=== PATIENT | female | born 1935 | race Caucasian/White ===

== ENCOUNTER → 2016-11-17 08:03 | Day surgery (SDC) | payer MEDICARE ==
[~2016-11-17 08:03] MED LIST: Acetaminophen ADULT LIQ* 650 MG/20.3 ML UDC ONE; Buffered Lidocaine 0.9% SYRIN* 5 ML/SYR SYRINGE INTRADERM ONE; Buffered Lidocaine 0.9% SYRIN* 5 ML/SYR SYRINGE ONE; Cisatracurium* 2 MG/ML MDV 5 ML ONE; Dexamethasone IV* 4 MG/ML 1 ML (4 MG) ONE; EPINEPHrine AMP 1 MG/ML ONE; Famotidine IV* 10 MG/ML 2 ML (20 mg) IV ONE; Famotidine IV* 10 MG/ML 2 ML (20 mg) ONE; Glycopyrrolate IV* 0.2 MG/ML 1 ML VIAL ONE; Lidocaine 2% PF * 5 ML VIAL ONE; Metoclopramide TAB* 10 MG ONE; Metoclopramide TAB* 10 MG PO ONE; Midazolam* 1 MG/ML 5 ML VIAL (5 MG) ONE; Neostigmine Methylsulfate* 2 MG/2 ML SYRINGE ONE; Ondansetron INJ* 2 MG/ML VIAL ONE; Ondansetron ODT TAB* 4 MG PO PRN; Propofol* 10 MG/ML 20 ML BTL IV PUSH ONE; fentaNYL* 50 MCG/ML 2 ML VIAL (100 MCG VIAL) IV PRN; fentaNYL* 50 MCG/ML 2 ML VIAL (100 MCG VIAL) ONE
[2016-11-17 11:47] VITALS: BP 137/64
--- NOTE | 2016-11-17 12:12 | OP ---
OPERATIVE REPORT: DATE OF OPERATION: 11/17/16 DATE OF : 31 SURGEON: Richard Yi M.D. PRE-OP DIAGNOSIS: Dysphonia. POST-OP DIAGNOSIS: Dysphonia. OPERATIVE PROCEDURE: Bilateral vocal fold medialization with Prolaryn. 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 She has had more and more difficulty projecting her voice. DESCRIPTION OF PROCEDURE: Patient was taken to the operating room, general anesthesia was given, th e patient was intubated. Larynx was suspended. Microscope was utilized. Prolaryn injection was ca rried out approximately at the level about anterior one-third to posterior two-thirds lateral to the vocal cord approximately 0.3 to 0.4 mL was used on both sides. Patient was then awakened, extubate d, and sent to recovery room in stable condition. Instrument and sponge count correct. Blood loss m inimal. [id number]/[facility] #: [id number]
== END | disposition home or self-care (01) ==
LOC: OR 08:03
PROVIDERS: ATTEND Otolaryngology
DX: R49.0 Dysphonia (principal); I10 Essential (primary) hypertension; I48.91 Unspecified atrial fibrillation; E03.9 Hypothyroidism, unspecified; Z88.0 Allergy status to penicillin; Z88.6 Allergy status to analgesic agent; Z91.041 Radiographic dye allergy status; Z79.01 Long term (current) use of anticoagulants
CPT/HCPCS: A9270-GY; J0171; J1100; J2250; J2405; J2704; J3010

== ENCOUNTER 2017-07-27 07:49 | Day surgery (SDC) | payer MEDICARE ==
[~2017-07-27 07:49] MED LIST changes: -Acetaminophen ADULT LIQ* 650 MG/20.3 ML UDC ONE; -Buffered Lidocaine 0.9% SYRIN* 5 ML/SYR SYRINGE ONE; -Cisatracurium* 2 MG/ML MDV 5 ML ONE; -Dexamethasone IV* 4 MG/ML 1 ML (4 MG) ONE; -EPINEPHrine AMP 1 MG/ML ONE; -Famotidine IV* 10 MG/ML 2 ML (20 mg) IV ONE; -Famotidine IV* 10 MG/ML 2 ML (20 mg) ONE; -Glycopyrrolate IV* 0.2 MG/ML 1 ML VIAL ONE; -Lidocaine 2% PF * 5 ML VIAL ONE; -Metoclopramide TAB* 10 MG ONE; -Metoclopramide TAB* 10 MG PO ONE; -Midazolam* 1 MG/ML 5 ML VIAL (5 MG) ONE; -Neostigmine Methylsulfate* 2 MG/2 ML SYRINGE ONE; -Ondansetron INJ* 2 MG/ML VIAL ONE; -Ondansetron ODT TAB* 4 MG PO PRN; -Propofol* 10 MG/ML 20 ML BTL IV PUSH ONE; -fentaNYL* 50 MCG/ML 2 ML VIAL (100 MCG VIAL) IV PRN; -fentaNYL* 50 MCG/ML 2 ML VIAL (100 MCG VIAL) ONE
[2017-07-27] MEDS ORDERED: Midazolam* 1 MG/ML 2 ML VIAL (2 MG) ONE (09:54)
[2017-07-27 10:20] VITALS: BP 139/62
--- NOTE | 2017-07-27 10:26 | OP ---
DATE OF OPERATION: 07/27/2017. DATE OF : 1935. SURGEON: Jeet Rasmussen M.D. PREOPERATIVE DIAGNOSIS: Cataract right eye. POSTOPERATIVE DIAGNOSIS: Cataract right eye. OPERATIVE PROCEDURE: Extracapsular cataract extraction with intraocular lens implant right eye. PROCEDURE: The patient was brought to the operating room after being given 1/2% Alcaine with epineph rine drops in the preoperative area. The eye was prepped and draped in the usual sterile fashion. S terile drape and eyelid speculum were placed. Again, topical 1/2% Alcaine with epinephrine was given . A paracentesis incision was made at the 9 o'clock position with the No.75 blade. Clear cornea inc ision 2.2 x 2.2-mm was created at the 12 o'clock position starting at the anterior limbus using the 2 .2-mm keratome. The anterior chamber was irrigated with 0.4 mL of 1% non-preservative intracameral l idocaine and filled with DisCoVisc. A capsulorrhexis was completed using the cystotome and the Utrat a forceps. Hydrodissection was performed with balanced salt solution. The lens nucleus was removed w ith the Phacoemulsification handpiece without incident. Cortex was removed with the irrigation-aspir ation handpiece. The capsular bag was re-inflated using DisCoVisc and an [id number] implant was inser john with the shooter. The irrigation-aspiration handpiece was used to remove all residual DisCoVisc. The eye was refilled with balanced salt solution and the wound checked and found to be watertight. Topical Maxitrol drops were given. [id number]/[facility] #: [id number]
[2017-07-27] MEDS ORDERED: Cyclopentolate 1% OPTH.SOL* 2 ML BTL ONE (12:18)
[2017-07-27] MEDS ORDERED: Ketorolac 0.5% OPHTH (NF) 0.5 % 5 ML BTL ONE (12:18)
[2017-07-27] MEDS ORDERED: Povidone Iodine 5% OPTH* 30 ML BTL ONE (12:18)
[2017-07-27] MEDS ORDERED: acetaZOLAMIDE TAB* 250 MG ONE (12:18)
[2017-07-27] MEDS ORDERED: Neomycin/Polymy/Dex OPTH.SUSP* MAXITROL 0.1% 5 ML ONE (12:18)
[2017-07-27] MEDS ORDERED: Lidocaine 2% EPI 1:200000 MPF*10-20 ML VIAL ONE (12:18)
[2017-07-27] MEDS ORDERED: Lidocaine 1% MPF* 2 ML VIAL ONE (12:18)
[2017-07-27] MEDS ORDERED: Phenylephrine 2.5% OPTH.SOL* 2 ML BTL ONE (12:18)
[2017-07-27] MEDS ORDERED: Proparacaine 0.5% OPHTH.SOL* 15 ML BTL ONE (12:19)
== END 2017-07-27 10:30 | disposition home or self-care (01) ==
LOC: OREAST 07:49
PROVIDERS: ATTEND Specialist
DX: H25.811 Combined forms of age-related cataract, right eye (principal); H35.3131 Nonexudative age-related macular degeneration, bilateral, early dry stage; H26.492 Other secondary cataract, left eye; I48.0 Paroxysmal atrial fibrillation; Z79.01 Long term (current) use of anticoagulants; I10 Essential (primary) hypertension; K21.9 Gastro-esophageal reflux disease without esophagitis
CPT/HCPCS: A9270-GY; J2250; V2632

== ENCOUNTER 2018-05-01 07:30 | Day surgery (SDC) | payer MEDICARE ==
[~2018-05-01 07:30] MED LIST changes: -Buffered Lidocaine 0.9% SYRIN* 5 ML/SYR SYRINGE INTRADERM ONE; +Buffered Lidocaine 1% SYRIN* 1 ML/SYRINGE INTRADERM ONE; +Lactated Ringers 1000 ML Bag* 1,000 ML IV SCH
[2018-05-01] MEDS ORDERED: ceFAZolin 2 GM PREMIX in ORs 2 GM/50 ML BAG IVPB ONE (07:49)
[2018-05-01] MEDS ORDERED: Propofol* 10 MG/ML 20 ML BTL ONE (08:14)
[2018-05-01] MEDS ORDERED: fentaNYL* 50 MCG/ML 2 ML VIAL (100 MCG VIAL) ONE ×2 (08:14→10:22)
[2018-05-01] MEDS ORDERED: Lidocaine 2% PF* 10 ML AMP ONE (08:15)
[2018-05-01] MEDS ORDERED: Naloxone* 0.4 MG/ML 1 ML VIAL IV PRN (09:31)
[2018-05-01] MEDS ORDERED: Bupivacaine 0.25% SDV PF* 10 ML VIAL INJ ONE (09:41)
[2018-05-01] MEDS ORDERED: HYDROcodone/ACETAMIN 5-325 MG* 1 TAB ONE (10:14)
[2018-05-01] MEDS ORDERED: fentaNYL* 50 MCG/ML 2 ML VIAL (100 MCG VIAL) IV PRN (10:22)
[2018-05-01 10:50] VITALS: BP 144/70
--- NOTE | 2018-05-01 11:12 | OP ---
OPERATIVE REPORT: DATE OF OPERATION: 05/01/18 DATE OF : [birth year] SURGEON: Candelario Lockett MD. CRYPTOGRAPHIC CLERK: ADA Villeda. ANESTHESIOLOGIST: Dr. Garza ANESTHESIA: Local MAC. PRE-OP DIAGNOSIS: Left ulnar sided wrist mass off the ulnocarpal joint. POST-OP DIAGNOSIS: Left ulnar sided wrist mass off the ulnocarpal joint. OPERATIVE PROCEDURE: Left wrist ulnocarpal joint arthrotomy with synovectomy and excision of small g anglion. INDICATIONS: Cat Ramsey has had the mass over the ulnar side of the wrist. She wanted to have it excise d. We talked about risks and benefits. She understands the chance of recurrence. ESTIMATED BLOOD LOSS: 2 mL. COMPLICATIONS: None. FINDINGS: See above and below. DESCRIPTION OF PROCEDURE: Cat Ramsey was seen in the preoperative holding area. After the correct side, site and procedure were identified, we came back to the operating room where the arm was prepped and draped in the usual fashion and a time-out was performed. I had injected previously the area around the operative site with 0.25% plain Marcaine. I then made a longitudinal incision over the ulnar side of the wrist just palmar to the ECU tendon. Dissection w as carried down and full thickness flaps were raised off the extensor retinaculum. The mass was deep to that, so I went ahead and incised the retinaculum just palmar to the ECU tendon and immediately t here was proliferative synovitis and a small ganglion that came out. I went ahead and excised all of this ultimately making an arthrotomy in the ulnar carpal joint and debrided back of any degenerative tissue and any inflamed synovial tissue that was present. There was some degeneration near the area of the ulnar styloid and this was all trimmed back with a rongeur. Once I had everything nice and cl osed, we irrigated out the area. The capsule was closed with 3-0 PDS suture, the retinaculum was rep aired with 3-0 PDS suture. Skin was closed with 4-0 nylon suture. Soft dressings were applied and s he was taken to the recovery room in stable condition. [id number]/[facility] #: [id number]
== END 2018-05-01 10:52 | disposition home or self-care (01) ==
LOC: OR 07:30
PROVIDERS: ATTEND Orthopaedic Surgery Hand Surgery
DX: M67.432 Ganglion, left wrist (principal); I35.0 Nonrheumatic aortic (valve) stenosis; I48.0 Paroxysmal atrial fibrillation; Z79.01 Long term (current) use of anticoagulants; E78.5 Hyperlipidemia, unspecified; E03.9 Hypothyroidism, unspecified; J44.9 Chronic obstructive pulmonary disease, unspecified; M19.90 Unspecified osteoarthritis, unspecified site
CPT/HCPCS: 88304; J0690; J2001; J2704; J3010; J3490

== ENCOUNTER 2018-05-13 00:16 | Observation (INO) | payer MEDICARE ==
[2018-05-13] MEDS ORDERED: NS 0.9% 1000 ML** 1,000 ML IV ONE (00:30)
--- OUTSIDE RECORDS SUMMARY | 2018-05-13 00:35 | XMS REPORT | Continuity of Care Document ---
:1935 External Reference #:[id number] Author Name [place] Care Team Providers Name Role Phone Cat Berg M.D. Primary Care Physician Unavailable Payers Date Identification Numbers Payment Provider Subscriber Policy Number: [id number] [facility] [employer] Cat Brian Group Number: [id number] [address] [address] PayID: [id number] [place] [address] Expires: 2016 Policy Number: [id number] [facility] Ppo Che Brina Group Number: [id number] [address] [address] Group Name: DEVORA Dhaliwal [id number] PayID: [id number] Advance Directives Type Date Description Status Comment Other Directive 11/09/2016 Health Care Proxy Current and Verified Problems Date Description Provider Status Onset: 09/22/2016 Acquired hypothyroidism Pacheco Jones M.D.,FACP Onset: 09/22/2016 Paroxysmal atrial fibrillation Pacheco Jones M.D.,FACP Onset: 11/09/2016 Essential hypertension Pacheco Joens M.D.,FACP Onset: 01/10/2017 Disorder of vocal cord Pacheco Jones M.D.,FACP Onset: 09/09/2017 Mixed hyperlipidemia Pacheco Jones M.D.,FACP Onset: 04/17/2018 Aortic valve disorder Edgar Storm M.D., Active ALEM, GI Onset: 04/28/2018 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 Onset: 09/22/2016 Chronic atrial fibrillation Grant Gay, Inactive Patricia,FACYvette Inactive: 09/22/2016 Onset: 08/25/2016 Dyspnea Edgar Storm M.D., [facility] Inactive Inactive: 09/22/2016 Family History Date Family Member(s) Observation Comments Father Heart Disease : (age 62 Father due to NH Years) Mother Heart Disease age 82yrs Siblings 4 First Brother due to Heart () Disease First Sister Alzheimer's Disease First Sister due to Alzheimer's () Disease Second Sister Influenza Second Sister due to Influenza () Social History Type Date Description Comments Sex Unknown Marital Status Lives With Occupation Retired Tobacco Use Start: Unknown Never Smoked Cigarettes Smoking Status Reviewed: 04/28/18 Never Smoked Cigarettes ETOH Use Denies alcohol use Tobacco Use Start: Unknown Patient has never smoked Recreational Drug Use Denies Drug Use Exercise Type/Frequency Does not exercise Allergies, Adverse Reactions, Alerts Date Description Reaction Status Severity Comments 08/13/2016 NSAIDs Anaphylaxis Active Severe 08/13/2016 Iodinated Diagnostic Agents Active Medications Medication Date Status Form Strength Qnty SIG Indications Ordering Provider Metoprolol Active Tablets ER 50mg 180ta 1 tab by mouth Laurence Succinate ER /0000 24HR bs twice a day Morris, NP Coumadin Active Tablets 5mg 100ta 1.5 tab 2/wk Grant /0000 bs and 1 tab 5/wk Toña Gay, PO qpm or as Patricia,FACYvette directed Digoxin Active Tablets 250mcg 90tab 1 by mouth Edgar /0000 s every day Sonny Storm M.D., [facility] Synthroid Active Tablets 50mcg 90tab 1 by mouth Grant /0000 s every day Toña Gay M.D.,FACP Hydralazine Active Tablets 25mg 270ta take 1 tablet Grant HCL / bs by mouth three Toña Gay, times daily Patricia,FACYvette Preservision Active Capsules Areds 2 Daily Unknown Areds 2 Glucosamine Active Capsules 1500Com 1 by mouth Unknown Chondroitin /0000 once a day 1500 Complex Probiotic Active Capsules 1 by mouth Unknown Acidophilus /0000 every day Simbrinza Active Suspension 1-0.2% one drop in Unknown /0000 left eye three time a day Shingrix 02/27 Hx Suspension 50mcg/0.5 2unit 0.5 Grant Rec ML s milliliters Toña Gay, - intramuscular M.D.,FACP 03/22 now and 2- months later repeat Omeprazole 07/[address] 20mg 30cap 1 by mouth K21.9 s 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, - KNOWLEDGE ANALYST 02/05 Omeprazole 01/[address] 20mg 30cap 1 by mouth s every day for Morris, - 2 wks then as KNOWLEDGE ANALYST 07/11 Magnesium 00 Hx Tablets 400mg 1 by mouth Unknown /0000 every day - 08/24 Flexeril Hx Tablets 10mg 1 by mouth two Unknown /0000 to three times - a day as 08/24 Magnesium 00 Hx Tablets 400mg 1 by mouth Unknown Oxide /0000 every day - 07/11 Medications Administered in Office Medication Date Status Form Strength Qnty SIG Indications Ordering Provider Triamcinolone 04/28/ Administered Injection Dean (Kenalog) 2018 MD Shawn Inj, 09/06/ Administered Injection Edgarlotus Dennis Regadenoson, 0.1 2016 Storm, MG M.D., [facility], FASNC Technetium TC 09/06/ Administered Injection Edgar Dennis 99M Tetrofosmin, 2017 Emeterio, Per Unit Dose Up M.D., To 40 [facility], [facility] Immunizations CPT Code Status Date Vaccine Lot # [id number] Given 02/27/2018 Influenza Virus Vaccine, Quadrivalent, Split, [id number] Preservative Free [id number] Given 02/27/2018 Pneumococcal Conjugate Vaccine 13 Valent For [id number] Intramuscular Use 24065 Given 01/10/2017 Influenza Virus Vaccine, Quadrivalent, Split, [id number] Preservative Free 26044 Given 11/05/2014 Pneumonia Vaccine 61039 Given 01/30/2005 Pneumonia Vaccine Vital Signs Date Vital Result Comment 04/28/2018 1:56pm Height 65 inches 5'5" Weight 185.00 lb Heart Rate 68 /min BP Systolic 138 mmHg BP Diastolic 62 mmHg Body Temperature 97.9 F Pain Level 4 BMI (Body Mass Index) 30.8 kg/m2 04/25/2018 10:41am Height 65 inches 5'5" Weight 185.00 lb Heart Rate 64 /min BP Systolic 112 mmHg BP Diastolic 60 mmHg Respiratory Rate 18 /min Body Temperature 98.3 F Pain Level 5 BMI (Body Mass Index) 30.8 kg/m2 04/17/2018 1:19pm Height 65 inches 5'5" Weight 187.00 lb with out shoes BMI (Body Mass Index) 31.1 kg/m2 Ejection Fraction 55-60% date 04/10/18 echo 04/03/2018 11:03am Height 65 inches 5'5" Weight 187.25 lb Heart Rate 61 /min BP Systolic Sitting 122 mmHg large adult cuff left arm BP Diastolic Sitting 60 mmHg large adult cuff left arm Body Temperature 97.7 F O2 % BldC Oximetry 99 % at rest on room air BMI (Body Mass Index) 31.2 kg/m2 03/22/2018 9:35am Height 66 inches 5'6" Weight 188.00 lb BP Systolic 140 mmHg BP Diastolic 78 mmHg Pain Level 0 BMI (Body Mass Index) 30.3 kg/m2 02/27/2018 8:41am Height 66 inches Weight 190.00 lb Heart Rate 79 /min BP Systolic Sitting 140 mmHg BP Diastolic Sitting 76 mmHg Body Temperature 97.3 F O2 % BldC Oximetry 98 % BMI (Body Mass Index) 30.7 kg/m2 02/06/2018 1:33pm Weight 187.75 lb Heart Rate 64 /min BP Systolic Sitting 152 mmHg lue lg cuf BP Diastolic Sitting 60 mmHg lue lg cuf BP Systolic Standing 154 mmHg lue lg cuff BP Diastolic Standing 64 mmHg lue lg cuff Respiratory Rate 16 /min Ejection Fraction 54% 09/03/2016 echo 09/09/2017 2:39pm Weight 193.00 lb Heart Rate 66 /min BP Systolic Sitting 138 mmHg BP Diastolic Sitting 60 mmHg Body Temperature 97.7 F O2 % BldC Oximetry 98 % 07/11/2017 2:28pm Weight 192.00 lb Heart Rate 70 /min BP Systolic Sitting 140 mmHg BP Diastolic Sitting 60 mmHg Body Temperature 98.4 F O2 % BldC Oximetry 94 % 01/10/2017 8:10am Weight 193.00 lb Heart Rate 68 /min BP Systolic Sitting 130 mmHg BP Diastolic Sitting 56 mmHg Body Temperature 97.7 F O2 % BldC Oximetry 98 % 11/12/2016 9:36am Height 65.25 inches 5'5.25" Weight 194.00 lb No shoes Heart Rate 76 /min BP Systolic Sitting 142 mmHg Rue lrg cuff BP Diastolic Sitting 68 mmHg Rue lrg cuff BP Systolic Standing 136 mmHg Rue lrg cuff BP Diastolic Standing 64 mmHg Rue lrg cuff Respiratory Rate 17 /min BMI (Body Mass Index) 32.0 kg/m2 Ejection Fraction 54% 09/03/2016-echo 11/09/2016 2:33pm Weight 194.00 lb Heart Rate 74 /min BP Systolic Sitting 138 mmHg BP Diastolic Sitting 60 mmHg Body Temperature 98.9 F O2 % BldC Oximetry 96 % 09/22/2016 11:20am Height 65.25 inches 5'5.25" Weight 197.00 lb Heart Rate 61 /min BP Systolic Sitting 160 mmHg BP Diastolic Sitting 60 mmHg BP Systolic Recheck 170 mmHg LT arm BP Diastolic Recheck 70 mmHg LT arm Body Temperature 98.2 F O2 % BldC Oximetry 97 % BMI (Body Mass Index) 32.5 kg/m2 08/25/2016 9:33am Height 65.75 inches 5'5.75" Weight 198.00 lb without shoes Heart Rate 82 /min BP Systolic 154 mmHg Rue lg cuff BP Diastolic 70 mmHg Rue lg cuff BP Systolic Sitting 144 mmHg LUe lg cuff BP Diastolic Sitting 70 mmHg LUe lg cuff BP Systolic Standing 156 mmHg Lue lg cuff BP Diastolic Standing 74 mmHg Lue lg cuff Respiratory Rate 17 /min BMI (Body Mass Index) 32.2 kg/m2 Results Test Date Facility Test Result H/L Range Note Protime W/ Inr 04/26/2018 [facility] Prothrombin Time 28.0 Inr 2.3 Order 04/03/2018 [facility] EKG <pending> Protime W/ Inr 03/30/2018 [facility] Prothrombin Time 23.7 Inr 1.9 Protime W/ Inr 02/27/2018 [facility] Prothrombin Time 23.9 Inr 2.0 Protime W/ Inr 02/20/2018 [facility] Prothrombin Time 20.6 Inr 1.7 Protime W/ Inr 02/13/2018 [facility] Prothrombin Time 22.9 Inr 1.9 Basic Metabolic Panel 02/02/2018 [facility] Sodium 140 mmol/L N 135-145 [address] [place] [address] [phone] Potassium 4.8 mmol/L N 3.5-5.0 Chloride 104 mmol/L N 101-111 Co2 Carbon Dioxide 32 mmol/L N 22-32 Anion Gap 4 mmol/L N 2-11 Glucose 80 mg/dL N 70-100 Blood Urea Nitrogen 16 mg/dL N 6-24 Creatinine 0.83 mg/dL N 0.51-0.95 BUN/Creatinine Ratio 19.3 N 8-20 Calcium 9.5 mg/dL N 8.6-10.3 Egfr Non- 65.5 >60 Egfr 79.2 >60 1 CBC Auto Diff 02/02/2018 [facility] White Blood 7.8 10^3/uL N 3.5-10.[address] [place] [address] [phone] Red Blood Count 4.36 10^6/uL N 4.00-5.40 Hemoglobin 13.6 g/dL N 12.0-16.0 Hematocrit 41 % N 35-47 Mean Corpuscular Volume 93 fL N 80-97 Mean Corpuscular Hemoglobin 31 pg N 27-31 Mean Corpuscular HGB Conc 33 g/dL N 31-36 Red Cell Distribution Width 14 % N 10.5-15 Platelet Count 227 10^3/uL N 150-450 Mean Platelet Volume 8.7 fL N 7.4-10.4 Abs Neutrophils 4.3 10^3/uL N 1.5-7.7 Abs Lymphocytes 2.5 10^3/uL N 1.0-4.8 Abs Monocytes 0.8 10^3/uL N 0-0.8 Abs Eosinophils 0.2 10^3/uL N 0-0.6 Abs Basophils 0.1 10^3/uL N 0-0.2 Abs Nucleated RBC 0 10^3/uL Granulocyte % 55.1 % N 38-83 Lymphocyte % 31.6 % N 25-47 Monocyte % 10.0 % High 0-7 Eosinophil % 2.6 % N 0-6 Basophil % 0.7 % N 0-2 Nucleated Red Blood Cells % 0.1 Laboratory test 02/02/2018 [facility] Digoxin 1.7 ng/ml N 0.8- 2.[address] [place] [address] [phone] Protime W/ Inr 02/02/2018 [facility] Prothrombin Time 21.8 Inr 1.8 Protime W/ Inr 01/06/2018 [facility] Prothrombin Time 23.9 Inr 2.0 Protime W/ Inr 11/29/2017 [facility] Prothrombin Time 30.7 Inr 2.5 Protime W/ Inr 11/01/2017 [facility] Prothrombin Time 29.4 Inr 2.4 Protime W/ Inr 10/04/2017 [facility] Prothrombin Time 36.6 Inr 3.0 Protime W/ Inr 09/26/2017 [facility] Prothrombin Time 39.0 Inr 3.2 Protime W/ Inr 09/09/2017 [facility] Prothrombin Time 23.2 Inr 1.9 Protime W/ Inr 08/31/2017 [facility] Prothrombin Time 16.3 Inr 1.3 Laboratory 08/31/2017 [facility] TSH (Thyroid Stim 3.40 N 0.34 -5.60 2 test finding [address] Horm) mcIU/[place] [address] [phone] Lipid Profile 08/31/2017 [facility] Triglycerides 208 mg/dL 3 (Trig/Chol/HDL [address] ) [place] [address] [phone] Cholesterol 206 mg/dL 4 HDL Cholesterol 33.6 mg/dL 5 LDL Cholesterol 131 mg/dL 6 Laboratory test 08/31/2017 [facility] Digoxin 0.7 ng/ml Low 0.8-2.0 [address] [place] [address] [phone] Inr/Protime 08/31/2017 [facility] Inr 2.30 High 0.77-1.[address] [place], [place] [address] [phone] Inr/Protime 08/02/2017 [facility] Inr 2.49 High 0.77-1.[address] [place] [address] [phone] Protime W/ Inr 07/11/2017 [facility] Prothrombin 30.8 Time Inr 2.5 Protime W/ Inr 06/20/2017 Other Rendering Inr 2.1 Protime W/ Inr 05/18/2017 Other Rendering Inr 2.6 Protime W/ Inr 04/21/2017 Other Rendering Inr 2.4 Protime W/ Inr 03/30/2017 Other Rendering Inr 2.4 Protime W/ Inr 03/23/2017 Other Rendering Inr 3.3 Protime W/ Inr 02/17/2017 [facility] Prothrombin Time 27.4 Inr 2.2 Protime W/ Inr 02/03/2017 [facility] Prothrombin Time 19.3 Inr 1.6 Protime W/ Inr 01/18/2017 [facility] Prothrombin Time 28.7 Inr 2.3 Comp Metabolic Panel 01/10/2017 [facility] Sodium 138 mmol/L N 133-[address] [place] [address] [phone] Potassium 4.7 mmol/L N 3.5-5.0 Chloride 103 mmol/L N 101-111 Co2 Carbon Dioxide 30 mmol/L N 22-32 Anion Gap 5 mmol/L N 2-11 Glucose 88 mg/dL N 70-100 Blood Urea Nitrogen 11 mg/dL N 6-24 Creatinine 0.82 mg/dL N 0.51-0.95 BUN/Creatinine Ratio 13.4 N 8-20 Calcium 9.7 mg/dL N 8.6-10.3 Total Protein 6.8 g/dL N 6.4-8.9 Albumin 4.3 g/dL N 3.2-5.2 Globulin 2.5 g/dL N 2-4 Albumin/Globulin Ratio 1.7 N 1-3 Total Bilirubin 1.20 mg/dL High 0.2-1.0 Alkaline Phosphatase 59 U/L N 34-104 Alt 24 U/L N 7-52 Ast 32 U/L N 13-39 Egfr Non- 66.6 N >60 Egfr 85.6 N >60 8 CBC Auto Diff 01/10/2017 [facility] White Blood 6.9 10^3/uL N 3.5-10.[address] [place] [address] [phone] Red Blood Count 4.46 10^6/uL N 4.0-5.4 Hemoglobin 13.9 g/dL N 12.0-16.0 Hematocrit 42 % N 35-47 Mean Corpuscular Volume 93 fL N 80-97 Mean Corpuscular Hemoglobin 31 pg N 27-31 Mean Corpuscular HGB Conc 34 g/dL N 31-36 Red Cell Distribution Width 14 % N 10.5-15 Platelet Count 225 10^3/uL N 150-450 Mean Platelet Volume 9 um3 N 7.4-10.4 Abs Neutrophils 4.0 10^3/uL N 1.5-7.7 Abs Lymphocytes 2.1 10^3/uL N 1.0-4.8 Abs Monocytes 0.7 10^3/uL N 0-0.8 Abs Eosinophils 0.1 10^3/uL N 0-0.6 Abs Basophils 0.1 10^3/uL N 0-0.2 Abs Nucleated RBC 0 10^3/uL N Granulocyte % 57.8 % N 38-83 Lymphocyte % 30.1 % N 25-47 Monocyte % 9.6 % High 1-9 Eosinophil % 1.6 % N 0-6 Basophil % 0.9 % N 0-2 Nucleated Red Blood Cells % 0 N Laboratory test 01/10/2017 [facility] Lipase 24 U/L N 11.0- 82.[address] [place] [address] [phone] Inr/Protime 01/10/2017 [facility] Inr 3.50 High 0.89-1.[address] [place] [address] [phone] Protime W/ Inr 12/20/2016 [facility] Prothrombin Time 35.3 Inr 2.9 Protime W/ Inr 12/03/2016 [facility] Prothrombin Time 24.8 Inr 2.0 CBC Auto Diff 11/25/2016 [facility] White Blood 8.3 10^3/uL N 3.5-10.[address] [place] [address] [phone] Red Blood Count 4.32 10^6/uL N 4.0-5.4 Hemoglobin 13.4 g/dL N 12.0-16.0 Hematocrit 40 % N 35-47 Mean Corpuscular Volume 93 fL N 80-97 Mean Corpuscular Hemoglobin 31 pg N 27-31 Mean Corpuscular HGB Conc 34 g/dL N 31-36 Red Cell Distribution Width 14 % N 10.5-15 Platelet Count 246 10^3/uL N 150-450 Mean Platelet Volume 9 um3 N 7.4-10.4 Abs Neutrophils 4.2 10^3/uL N 1.5-7.7 Abs Lymphocytes 2.9 10^3/uL N 1.0-4.8 Abs Monocytes 0.9 10^3/uL High 0-0.8 Abs Eosinophils 0.2 10^3/uL N 0-0.6 Abs Basophils 0 10^3/uL N 0-0.2 Abs Nucleated RBC 0 10^3/uL N Granulocyte % 51.2 % N 38-83 Lymphocyte % 35.5 % N 25-47 Monocyte % 10.5 % High 1-9 Eosinophil % 2.3 % N 0-6 Basophil % 0.5 % N 0-2 Nucleated Red Blood Cells % 0 N Inr/Protime 11/25/2016 [facility] Inr 1.56 High 0.89-1.[address] [place] [address] [phone] Basic Metabolic 11/25/2016 [facility] Sodium 137 mmol/L N 133- [address] [place] [address] [phone] Potassium 4.3 mmol/L N 3.5-5.0 Chloride 104 mmol/L N 101-111 Co2 Carbon Dioxide 27 mmol/L N 22-32 Anion Gap 6 mmol/L N 2-11 Glucose 91 mg/dL N 70-100 Blood Urea Nitrogen 10 mg/dL N 6-24 Creatinine 0.76 mg/dL N 0.51-0.95 BUN/Creatinine Ratio 13.2 N 8-20 Calcium 9.1 mg/dL N 8.6-10.3 Egfr Non- 72.7 N >60 Egfr 93.5 N >60 9 CBC Auto Diff 11/10/2016 [facility] White Blood 7.7 10^3/uL N 3.5-10.[address] [place] [address] [phone] Red Blood Count 4.63 10^6/uL N 4.0-5.4 Hemoglobin 14.4 g/dL N 12.0-16.0 Hematocrit 43 % N 35-47 Mean Corpuscular Volume 92 fL N 80-97 Mean Corpuscular Hemoglobin 31 pg N 27-31 Mean Corpuscular HGB Conc 34 g/dL N 31-36 Red Cell Distribution Width 14 % N 10.5-15 Platelet Count 244 10^3/uL N 150-450 Mean Platelet Volume 9 um3 N 7.4-10.4 Abs Neutrophils 4.1 10^3/uL N 1.5-7.7 Abs Lymphocytes 2.7 10^3/uL N 1.0-4.8 Abs Monocytes 0.7 10^3/uL N 0-0.8 Abs Eosinophils 0.2 10^3/uL N 0-0.6 Abs Basophils 0.1 10^3/uL N 0-0.2 Abs Nucleated RBC 0.01 10^3/uL N Granulocyte % 53.5 % N 38-83 Lymphocyte % 34.7 % N 25-47 Monocyte % 8.4 % N 1-9 Eosinophil % 2.6 % N 0-6 Basophil % 0.8 % N 0-2 Nucleated Red Blood Cells % 0.2 N Inr/Protime 11/10/2016 [facility] Inr 2.22 High 0.89-1.11 [address] [place] [address] [phone] Comp Metabolic 11/10/2016 [facility] Sodium 137 mmol/L N 133- 145 Panel [address] [place] [address] [phone] Potassium 4.3 mmol/L N 3.5-5.0 Chloride 102 mmol/L N 101-111 Co2 Carbon Dioxide 30 mmol/L N 22-32 Anion Gap 5 mmol/L N 2-11 Glucose 97 mg/dL N 70-100 Blood Urea Nitrogen 11 mg/dL N 6-24 Creatinine 0.83 mg/dL N 0.51-0.95 BUN/Creatinine Ratio 13.3 N 8-20 Calcium 9.6 mg/dL N 8.6-10.3 Total Protein 7.3 g/dL N 6.4-8.9 Albumin 4.3 g/dL N 3.2-5.2 Globulin 3.0 g/dL N 2-4 Albumin/Globulin Ratio 1.4 N 1-3 Total Bilirubin 1.30 mg/dL High 0.2-1.0 Alkaline Phosphatase 52 U/L N 34-104 Alt 25 U/L N 7-52 Ast 40 U/L High 13-39 Egfr Non- 65.8 N >60 Egfr 84.6 N >60 10 Protime W/ Inr 10/25/2016 [facility] Prothrombin Time 33.0 Inr 2.7 Basic Metabolic Panel 09/22/2016 [facility] Sodium 138 mmol/L N 133-145 [address] [place] [address] [phone] Potassium 4.5 mmol/L N 3.5-5.0 Chloride 103 mmol/L N 101-111 Co2 Carbon Dioxide 30 mmol/L N 22-32 Anion Gap 5 mmol/L N 2-11 Glucose 93 mg/dL N 70-100 Blood Urea Nitrogen 11 mg/dL N 6-24 Creatinine 0.83 mg/dL N 0.51-0.95 BUN/Creatinine Ratio 13.3 N 8-20 Calcium 9.4 mg/dL N 8.6-10.3 Egfr Non- 65.8 N >60 Egfr 84.6 N >60 11 Laboratory test 09/22/2016 [facility] TSH (Thyroid 2.88 mcIU/mL N 0.34-5.[address] Stim [facility]) [place] [address] [phone] Free T4 (Free Thyroxine) 0.87 ng/dL N 0.61-1.12 Digoxin 1.1 ng/ml N 0.8-2.0 Inr/Protime 09/22/2016 [facility] Inr 2.41 High 0.89-1.11 [address] [place] [address] [phone] Laboratory test 09/22/2016 [facility] Erythrocyte Sed 29 mm/Hr N 0-40 finding [address] [facility] [place] [address] [phone] Inr/Protime 09/01/2016 [facility] Inr 2.38 High 0.89-1.[address] [place] [address] [phone] 1 Because ethnic data is not always readily available, this report includes an eGFR for both -Americans and non- Americans. The National Kidney Disease Education Program (NKDEP) does not endorse the use of the MDRD equation for patients that are not between the ages of 18 and 70, are , have extremes of body size, muscle mass, or nutritional status, or are non- or non-. According to the National Kidney Foundation, irrespective of diagnosis, the stage of the disease is based on the level of kidney function: Stage Description GFR(mL/min/1.73 m(2)) 1 Kidney damage with normal or decreased GFR 90 2 Kidney damage with mild decrease in GFR 60-89 3 Moderate decrease in GFR 30-59 4 Severe decrease in GFR 15-29 5 Kidney failure <15 (or dialysis) 2 FASTING 3 Desirable: <150 Borderline High: 150-199 High: 200-499 Very High: >500 4 Desirable: <200 Borderline High: 200-239 High: >239 5 Low: <40 Desirable: 40-60 High: >60 6 Desirable: <100 Near Optimal: 100-129 Borderline High: 130-159 High: 160-189 Very High: >189 7 FASTING 8 Because ethnic data is not always readily available, this report includes an eGFR for both -Americans and non- Americans. The National Kidney Disease Education Program (NKDEP) does not endorse the use of the MDRD equation for patients that are not between the ages of 18 and 70, are , have extremes of body size, muscle mass, or nutritional status, or are non- or non-. According to the National Kidney Foundation, irrespective of diagnosis, the stage of the disease is based on the level of kidney function: Stage Description GFR(mL/min/1.73 m(2)) 1 Kidney damage with normal or decreased GFR 90 2 Kidney damage with mild decrease in GFR 60-89 3 Moderate decrease in GFR 30-59 4 Severe decrease in GFR 15-29 5 Kidney failure <15 (or dialysis) 9 Because ethnic data is not always readily available, this report includes an eGFR for both -Americans and non- Americans. The National Kidney Disease Education Program (NKDEP) does not endorse the use of the MDRD equation for patients that are not between the ages of 18 and 70, are , have extremes of body size, muscle mass, or nutritional status, or are non- or non-. According to the National Kidney Foundation, irrespective of diagnosis, the stage of the disease is based on the level of kidney function: Stage Description GFR(mL/min/1.73 m(2)) 1 Kidney damage with normal or decreased GFR 90 2 Kidney damage with mild decrease in GFR 60-89 3 Moderate decrease in GFR 30-59 4 Severe decrease in GFR 15-29 5 Kidney failure <15 (or dialysis) 10 Because ethnic data is not always readily available, this report includes an eGFR for both -Americans and non- Americans. The National Kidney Disease Education Program (NKDEP) does not endorse the use of the MDRD equation for patients that are not between the ages of 18 and 70, are , have extremes of body size, muscle mass, or nutritional status, or are non- or non-. According to the National Kidney Foundation, irrespective of diagnosis, the stage of the disease is based on the level of kidney function: Stage Description GFR(mL/min/1.73 m(2)) 1 Kidney damage with normal or decreased GFR 90 2 Kidney damage with mild decrease in GFR 60-89 3 Moderate decrease in GFR 30-59 4 Severe decrease in GFR 15-29 5 Kidney failure <15 (or dialysis) 11 Because ethnic data is not always readily available, this report includes an eGFR for both -Americans and non- Americans. The National Kidney Disease Education Program (NKDEP) does not endorse the use of the MDRD equation for patients that are not between the ages of 18 and 70, are , have extremes of body size, muscle mass, or nutritional status, or are non- or non-. According to the National Kidney Foundation, irrespective of diagnosis, the stage of the disease is based on the level of kidney function: Stage Description GFR(mL/min/1.73 m(2)) 1 Kidney damage with normal or decreased GFR 90 2 Kidney damage with mild decrease in GFR 60-89 3 Moderate decrease in GFR 30-59 4 Severe decrease in GFR 15-29 5 Kidney failure <15 (or dialysis) Procedures Date Code Description Status 04/28/2018 03798 Injection Anesthetic Agent/Steroid Plantar Common Completed Digital Nerve 04/24/2018 [id number] Diabetic Retinal Eye Exam Completed 04/17/2018 82089 EKG Tracing & Interpretation Completed 04/10/2018 99812 ECHO Transthoracic, Real-Time 2D With Doppler And Completed Color Flow 04/10/2018 86030 ECHO Transthoracic, Real-Time 2D With Doppler And Completed Color Flow 04/03/2018 75417 EKG Tracing & Interpretation Completed 03/06/2018 [id number] Diabetic Retinal Eye Exam Completed 02/16/2018 [id number] Diabetic Retinal Eye Exam Completed 02/06/2018 55348 EKG Tracing & Interpretation Completed 02/22/2017 [id number] Mammogram Completed 11/12/2016 93476 EKG Tracing & Interpretation Completed 09/06/2016 64980 Stress Test Completed 09/06/2016 26453 Myocardial Perfusion Imaging Tomographic (Spect) Completed Multiple Studies 09/03/2016 99705 ECHO Transthoracic, Real-Time 2D With Doppler And Completed Color Flow 08/25/2016 62529 EKG Tracing & Interpretation Completed 12/26/2015 [id number] Mammogram Completed 12/19/2014 [id number] Mammogram Completed 12/24/2013 [id number] Mammogram Completed 12/21/2012 [id number] Mammogram Completed 12/24/2011 [id number] Mammogram Completed 02/11/2010 [id number] Mammogram Completed 08/25/2009 [id number] Rad Exam; Pelvis Completed 08/25/2009 [id number] Rad Exam; Spine Lumbosacral Completed 08/25/2009 [id number] Rad Exam; Hip Unilat Completed 07/15/2009 [id number] Mammogram Completed 11/28/2008 [id number] Mammogram Completed 11/07/2008 [id number] Colonoscopy Completed 11/08/2007 [id number] Mammogram Completed Encounters Type Date Location Provider Dx Diagnosis Office Visit 04/17/2018 [facility] Edgar Dennis 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, [facility] Office Visit 09/09/2017 2:40p [facility] Internal Grant Ding Z79.01 intermodal customer service (current) Medicine - [place] Victor Hugo, use of Rd M.DZulema,FACP anticoagulants I48.0 Paroxysmal atrial fibrillation E78.2 Mixed hyperlipidemia Office Visit 07/11/2017 [facility] Internal Laurence Z01.818 Encounter for other 2:40p Medicine - Alexandra, KNOWLEDGE ANALYST preprocedural [place] [address] examination H25.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-related cataract, bilateral I48.0 Paroxysmal atrial fibrillation Z79.01 intermodal customer service (current) use of anticoagulants K21.9 Gastro-esophageal reflux disease without esophagitis Office Visit 01/10/2017 8:20a [facility] Jillian Ding R10.32 Left lower Medicine - Pelon Gay M.D.,FACP quadrant pain Rd Z23 Encounter for immunization [facility].0 Paroxysmal atrial 10:00a Cardiology More Storm M.D., fibrillation 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, unilateral I48.0 Paroxysmal atrial fibrillation I10 Essential (primary) hypertension Office Visit 09/22/2016 11:50a [facility] Jillian Ding I48.0 Paroxysmal atrial Oleksandr Gay M.D.,FACP fibrillation [address] [address] I10 Essential (primary) hypertension E03.9 Hypothyroidism, unspecified M35.3 Polymyalgia rheumatica Office Visit 08/25/2016 9:45a [facility] Edgar Dennis R06.02 Shortness of Of Marisol Storm M.D., breath [facility] Office Visit 08/25/2009 3:00p Orthopedic Dirk Ab, 922.32 Contusion Services Of Cristiana Gomez Buttock 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 848.9 Sprains & Strains Unspec Site 721.3 Spondylosis Lumbar W/O Myelopathy Plan of Treatment Future Appointment(s):05/16/2018 1:15 pm - Candelario Lockett MD at [facility]05/01/2018 11:30 am - ADA Villeda at [facility]05/01/2018 11:30 am - Candelario Lockett MD at [facility]06/27/2018 9:00 am - Cat Berg MD at [facility] Internal Medicine - [address]04/28/2018 - Dean Escobar MDG57.62 Lesion of plantar nerve, left lower limbFollow up:Follow Up: As needed
--- OUTSIDE RECORDS SUMMARY | 2018-05-13 00:35 | XMS REPORT | Continuity of Care Document ---
:1935 External Reference #:[id number] Author Name [place] Care Team Providers Name Role Phone Cat Berg M.D. Primary Care Physician Unavailable Payers Date Identification Numbers Payment Provider Subscriber Policy Number: [id number] [facility] Medicare [employer] Cat Brian Group Number: [id number] [address] [address] PayID: [id number] [place] [address] Expires: 2016 Policy Number: [id number] [facility] Ppo Che Brian Group Number: [id number] [address] [address] Group Name: DEVORA Dhaliwal [id number] PayID: [id number] Advance Directives Type Date Description Status Comment Other Directive 11/09/2016 Health Care Proxy Current and Verified Problems Date Description Provider Status Onset: 09/22/2016 Acquired hypothyroidism Pacheco Jones M.D.,FACP Onset: 09/22/2016 Paroxysmal atrial fibrillation Pacheco Jones M.D.,FACP Onset: 11/09/2016 Essential hypertension Pacheco Jones M.D.,FACP Onset: 01/10/2017 Disorder of vocal cord Pacheco Jones M.D.,FACP Onset: 09/09/2017 Mixed hyperlipidemia Pacheco Jones M.D.,FACP Onset: 04/17/2018 Aortic valve disorder Edgar Storm M.D., Active ALEM, GI Onset: 04/28/2018 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 Onset: 09/22/2016 Chronic atrial fibrillation Grant Gay, Inactive Patricia,KAILA Inactive: 09/22/2016 Onset: 08/25/2016 Dyspnea Edgar Storm M.D., CHRISTY, GI Inactive Inactive: 09/22/2016 Family History Date Family Member(s) Observation Comments Father Heart Disease : (age 62 Father due to IN Years) Mother Heart Disease age 82yrs Siblings 4 First Brother due to Heart () Disease First Sister Alzheimer's Disease First Sister due to Alzheimer's () Disease Second Sister Influenza Second Sister due to Influenza () Social History Type Date Description Comments Sex Unknown Marital Status Lives With Occupation Retired Tobacco Use Start: Unknown Never Smoked Cigarettes Smoking Status Reviewed: 05/08/18 Never Smoked Cigarettes ETOH Use Denies alcohol use Tobacco Use Start: Unknown Patient has never smoked Recreational Drug Use Denies Drug Use Exercise Type/Frequency Does not exercise Allergies, Adverse Reactions, Alerts Date Description Reaction Status Severity Comments 08/13/2016 NSAIDs Anaphylaxis Active Severe 08/13/2016 Iodinated Diagnostic Agents Active Medications Medication Date Status Form Strength Qnty SIG Indications Ordering Provider Tramadol HCL 05/01 Active Tablets 50mg 30tab 1-2 tablets by Candelario /2018 s mouth every 6 Lockett, hours as MD needed pain Metoprolol Active Tablets ER 50mg 180ta 1 tab by mouth Laurence Succinate ER /0000 24HR bs twice a day MCKINLEY Morris Coumadin Active Tablets 5mg 100ta 1.5 tab 2/wk Grant /0000 bs and 1 tab 5/wk Toña Gay, PO qpm or as KAILA Gomez directed Digoxin Active Tablets 250mcg 90tab 1 by mouth Edgar /0000 s every day Sonny Storm M.D., [facility]STY[facility] Synthroid Active Tablets 50mcg 90tab 1 by mouth Gratn /0000 s every day Toña Gay M.D.,FACYvette Hydralazine Active Tablets 25mg 270ta take 1 tablet Grant HCL /0000 bs by mouth three Lizzy. Victor Hugo, times daily KAILA Gomze Preservision Active Capsules Areds 2 Daily Unknown Areds 2 Glucosamine Active Capsules 1500Com 1 by mouth Unknown Chondroitin /0000 once a day 1500 Complex Probiotic 00/00 Active Capsules 1 by mouth Unknown Acidophilus /0000 every day Simbrinza Active Suspension 1-0.2% one drop in Unknown /0000 left eye three time a day Shingrix 02/27 Hx Suspension 50mcg/0.5 2unit 0.5 Rec ML s milliliters Toña Gay, - intramuscular M.D.,FACP 03/22 now and 2- months later repeat Omeprazole 07/[address] 20mg 30cap 1 by mouth K21.9 Laurence s 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, - SOFT WATER MECHANIC 02/05 Omeprazole 01/[address] 20mg 30cap 1 by mouth Laurence /2017 s every day for Morris, - 2 wks then as SOFT WATER MECHANIC 07/11 Magnesium Hx Tablets 400mg 1 by mouth Unknown /0000 every day - 08/24 Flexeril Hx Tablets 10mg 1 by mouth two Unknown /0000 to three times - a day as 08/24 Magnesium Hx Tablets 400mg 1 by mouth Unknown Oxide /0000 every day - 07/11 Medications Administered in Office Medication Date Status Form Strength Qnty SIG Indications Ordering Provider Triamcinolone 04/28/ Administered Injection Dean (Kenalog) 2018 MD Shawn Inj, 09/06/ Administered Injection Edgarlotus Dennis Regadenoson, 0.1 2017 Emeterio, MG M.D., [facility] Technetium TC 09/06/ Administered Injection Edgar Dennis 99M Tetrofosmin, 2017 Emeterio, Per Unit Dose Up M.D., To 40 [facility] Immunizations CPT Code Status Date Vaccine Lot # [id number] Given 02/27/2018 Influenza Virus Vaccine, Quadrivalent, Split, [id number] Preservative Free 11243 Given 02/27/2018 Pneumococcal Conjugate Vaccine 13 Valent For [id number] Intramuscular Use 11666 Given 01/10/2017 Influenza Virus Vaccine, Quadrivalent, Split, [id number] Preservative Free 37589 Given 11/05/2014 Pneumonia Vaccine 12389 Given 01/30/2005 Pneumonia Vaccine Vital Signs Date Vital Result Comment 05/08/2018 3:34pm Height 65 inches 5'5" Heart Rate 68 /min BP Systolic 138 mmHg BP Diastolic 68 mmHg Body Temperature 98.3 F Pain Level 8 04/28/2018 1:56pm Height 65 inches 5'5" Weight [...] Result H/L Range Note Protime W/ Inr 05/04/2018 [facility] In House Prothrombin Time 18.6 Inr 1.5 Laboratory test 05/01/2018 [facility] Surgical Pathology SEE RESULT [address] [place] [address] [phone] Protime W/ Inr 04/26/2018 [facility] In House Prothrombin Time 28.0 Inr 2.3 Order 04/03/2018 [facility] In-House EKG <pending> Protime W/ Inr 03/30/2018 [facility] In House Prothrombin Time 23.7 Inr 1.9 Protime W/ Inr 02/27/2018 [facility] In House Prothrombin Time 23.9 Inr 2.0 Protime W/ Inr 02/20/2018 [facility] In House Prothrombin Time 20.6 Inr 1.7 Protime W/ Inr 02/13/2018 [facility] House Prothrombin Time 22.9 Inr 1.9 Basic Metabolic Panel 02/02/2018 [facility] Sodium 140 mmol/L N 135-[address] [place] [address] [phone] Potassium 4.8 mmol/L N 3.5-5.0 Chloride 104 mmol/L N 101-111 Co2 Carbon Dioxide 32 mmol/L N 22-32 Anion Gap 4 mmol/L N 2-11 Glucose 80 mg/dL N 70-100 Blood Urea Nitrogen 16 mg/dL N 6-24 Creatinine 0.83 mg/dL N 0.51-0.95 BUN/Creatinine Ratio 19.3 N 8-20 Calcium 9.5 mg/dL N 8.6-10.3 Egfr Non- 65.5 >60 Egfr 79.2 >60 2 CBC Auto Diff 02/02/2018 [facility] White Blood 7.8 10^3/uL N 3.5-10.[address] [place] [address] [phone] Red Blood Count 4.36 10^6/uL N 4.00-5.40 [...] Blood Cells % 0.1 Laboratory test 02/02/2018 [facility] Digoxin 1.7 ng/ml N 0.8- 2.[address] [place] [address] [phone] Protime W/ Inr 02/02/2018 [facility] House Prothrombin Time 21.8 Inr 1.8 Protime W/ Inr 01/06/2018 [facility] In House Prothrombin Time 23.9 Inr 2.0 Protime W/ Inr 11/29/2017 [facility] In House Prothrombin Time 30.7 Inr 2.5 Protime W/ Inr 11/01/2017 [facility] In House Prothrombin Time 29.4 Inr 2.4 Protime W/ Inr 10/04/2017 [facility] In House Prothrombin Time 36.6 Inr 3.0 Protime W/ Inr 09/26/2017 [facility] In House Prothrombin Time 39.0 Inr 3.2 Protime W/ Inr 09/09/2017 [facility] In House Prothrombin Time 23.2 Inr 1.9 Protime W/ Inr 08/31/2017 [facility] In House Prothrombin Time 16.3 Inr 1.3 Laboratory 08/31/2017 [facility] TSH (Thyroid Stim 3.40 N 0.34 -5.[address] Horm) mcIU/[place] [address] [phone] Lipid Profile 08/31/2017 [facility] Triglycerides 208 mg/dL 4 (Trig/Chol/HDL DRIVE ) [place] [address] [phone] Cholesterol 206 mg/dL 5 HDL Cholesterol 33.6 mg/dL 6 LDL Cholesterol 131 mg/dL 7 Laboratory test 08/31/2017 [facility] Digoxin 0.7 ng/ml Low 0.8-2.[address] [place] [address] [phone] Inr/Protime 08/31/2017 [facility] Inr 2.30 High 0.77-1.[address] [place] [address] [phone] Inr/Protime 08/02/2017 [facility] Inr 2.49 High 0.77-1.02 [address] [place] [address] [phone] Protime W/ Inr 07/11/2017 [facility] Prothrombin 30.8 Time Inr 2.5 Protime W/ Inr 06/20/2017 Other Rendering Inr 2.1 Protime W/ Inr 05/18/2017 Other Rendering Inr 2.6 Protime W/ Inr 04/21/2017 Other Rendering Inr 2.4 Protime W/ Inr 03/30/2017 Other Rendering Inr 2.4 Protime W/ Inr 03/23/2017 Other Rendering Inr 3.3 Protime W/ Inr 02/17/2017 [facility] House Prothrombin Time 27.4 Inr 2.2 Protime W/ Inr 02/03/2017 [facility] House Prothrombin Time 19.3 Inr 1.6 Protime W/ Inr 01/18/2017 [facility] House Prothrombin Time 28.7 Inr 2.3 Comp Metabolic Panel 01/10/2017 [facility] Sodium 138 mmol/L N 133-145 [address] [place] [address] [phone] Potassium 4.7 mmol/L N 3.5-5.0 Chloride 103 [...] 66.6 N >60 Egfr 85.6 N >60 9 CBC Auto Diff 01/10/2017 [facility] White Blood 6.9 10^3/uL N 3.5-10.[address] [place] [address] [phone] Red Blood Count 4.46 10^6/uL N 4.0-5.4 [...] Cells % 0 N Laboratory test 01/10/2017 [facility] Lipase 24 U/L N 11.0- 82.[address] [place] [address] [phone] Inr/Protime 01/10/2017 [facility] Inr 3.50 High 0.89-1.[address] [place] [address] [phone] Protime W/ Inr 12/20/2016 [facility] House Prothrombin Time 35.3 Inr 2.9 Protime W/ Inr 12/03/2016 [facility] House Prothrombin Time 24.8 Inr 2.0 CBC Auto Diff 11/25/2016 [facility] White Blood 8.3 10^3/uL N 3.5-10.[address] [place] [address] [phone] Red Blood Count 4.32 10^6/uL N 4.0-5.4 [...] Blood Cells % 0 N Inr/Protime 11/25/2016 [facility] Inr 1.56 High 0.89-1.11 [address] [place] [address] [phone] Basic Metabolic 11/25/2016 [facility] Sodium 137 mmol/L N 133- 145 Panel [address] [place] [address] [phone] Potassium 4.3 mmol/L N 3.5-5.0 Chloride 104 mmol/L N 101-111 Co2 Carbon Dioxide 27 mmol/L N 22-32 Anion Gap 6 mmol/L N 2-11 Glucose 91 mg/dL N 70-100 Blood Urea Nitrogen 10 mg/dL N 6-24 Creatinine 0.76 mg/dL N 0.51-0.95 BUN/Creatinine Ratio 13.2 N 8-20 Calcium 9.1 mg/dL N 8.6-10.3 Egfr Non- 72.7 N >60 Egfr 93.5 N >60 10 CBC Auto Diff 11/10/2016 [facility] White Blood 7.7 10^3/uL N 3.5-10.[address] [place] [address] [phone] Red Blood Count 4.63 10^6/uL N 4.0-5.4 [...] Blood Cells % 0.2 N Inr/Protime 11/10/2016 [facility] Inr 2.22 High 0.89-1.11 [address] [place] [address] [phone] Comp Metabolic 11/10/2016 [facility] Sodium 137 mmol/L N 133- 145 Panel [address] [place] [address] [phone] Potassium 4.3 mmol/L N 3.5-5.0 Chloride 102 [...] N >60 Egfr 84.6 N >60 11 Protime W/ Inr 10/25/2016 [facility] House Prothrombin Time 33.0 Inr 2.7 Basic Metabolic Panel 09/22/2016 [facility] Sodium 138 mmol/L N 133-[address] [place] [address] [phone] Potassium 4.5 mmol/L N 3.5-5.0 Chloride 103 mmol/L N 101-111 Co2 Carbon Dioxide 30 mmol/L N 22-32 Anion Gap 5 mmol/L N 2-11 Glucose 93 mg/dL N 70-100 Blood Urea Nitrogen 11 mg/dL N 6-24 Creatinine 0.83 mg/dL N 0.51-0.95 BUN/Creatinine Ratio 13.3 N 8-20 Calcium 9.4 mg/dL N 8.6-10.3 Egfr Non- 65.8 N >60 Egfr 84.6 N >60 12 Laboratory test 09/22/2016 [facility] TSH (Thyroid 2.88 mcIU/mL N 0.34-5.[address] Stim Horm) [place] [address] [phone] Free T4 (Free Thyroxine) 0.87 ng/dL N 0.61-1.12 Digoxin 1.1 ng/ml N 0.8-2.0 Inr/Protime 09/22/2016 [facility] Inr 2.41 High 0.89-1.[address] [place] [address] [phone] Laboratory test 09/22/2016 [facility] Erythrocyte Sed 29 mm/Hr N 0-[address] [place] [address] [phone] Inr/Protime 09/01/2016 [facility] Inr 2.38 High 0.89-1.11 [place] [address] [phone] 1 SEE RESULT BELOW Name: CAT BRIAN ANN : [address]: Candelario Lockett MD Acct: [id number] Unit: [id number] AGE: 82 Location: OR Re05/01/18 SEX: F Status: [facility] SPEC: [id number] TAMIA: 05/01/18- [facility] DR: Candelario Lockett MD REQ: [id number] RECD: 05/01/18 STATUS: SOUT _ ORDERED: LEVEL 3 FINAL DIAGNOSIS Wrist, left, excision: -- Ganglion cyst. PRE-OPERATIVE DIAGNOSIS Left wrist mass GROSS DESCRIPTION The specimen is received in formalin labeled, Left Wrist Synovitis and Small Ganglion, and consists of a 1.3 x 0.9 by up to 0.6 cm aggregate of yellow irregular rubbery fibrofatty soft tissue fragments, the largest of which measures up to 1.0 cm. The largest fragment is trisected and the specimen is submitted entirely in one cassette. Signed by and Reported on: Mallory Lara MD 05/02/18 1514 END OF REPORT DEPARTMENT OF PATHOLOGY, [address] [place] [address] Rickie Stein M.D. Director [facility] # [id number] 2 Because ethnic data is not always readily [...] 15-29 5 Kidney failure <15 (or dialysis) 3 FASTING 4 Desirable: <150 Borderline High: 150-199 High: 200-499 Very High: >500 5 Desirable: <200 Borderline High: 200-239 High: >239 6 Low: <40 Desirable: 40-60 High: >60 7 Desirable: <100 Near Optimal: 100-129 Borderline High: 130-159 High: 160-189 Very High: >189 8 FASTING 9 Because ethnic data is not always [...] 15-29 5 Kidney failure <15 (or dialysis) 12 Because ethnic data is not always readily [...] (or dialysis) Procedures Date Code Description Status 05/01/2018 90445 Arthrotomy Wrist With Synovectomy Completed 05/01/2018 15124 Arthrotomy Wrist With Synovectomy Completed 04/28/2018 42153 Injection Anesthetic Agent/Steroid Plantar Common Completed Digital Nerve 04/24/2018 [id number] Diabetic Retinal Eye Exam Completed 04/17/2018 60232 EKG Tracing & Interpretation Completed 04/10/2018 33060 ECHO Transthoracic, Real-Time 2D With Doppler And Completed Color Flow 04/10/2018 38313 ECHO Transthoracic, Real-Time 2D With Doppler And Completed Color Flow 04/03/2018 94359 EKG Tracing & Interpretation Completed 03/06/2018 [id number] Diabetic Retinal Eye Exam Completed 02/16/2018 [id number] Diabetic Retinal Eye Exam Completed 02/06/2018 86157 EKG Tracing & Interpretation Completed 02/22/2017 [id number] Mammogram Completed 11/12/2016 91180 EKG Tracing & Interpretation Completed 09/06/2016 72198 Stress Test Completed 09/06/2016 19682 Myocardial Perfusion Imaging Tomographic (Spect) Completed Multiple Studies 09/03/2016 86906 ECHO Transthoracic, Real-Time 2D With Doppler And Completed Color Flow 08/25/2016 03273 EKG Tracing & Interpretation Completed 12/26/2015 [id number] Mammogram Completed 12/19/2014 [id number] Mammogram Completed 12/24/2013 [id number] Mammogram Completed 12/21/2012 [id number] Mammogram Completed 12/24/2011 [id number] Mammogram Completed 02/11/2010 [id number] Mammogram Completed 08/25/2009 98395 Rad Exam; Pelvis Completed 08/25/2009 25175 Rad Exam; Spine Lumbosacral Completed 08/25/2009 00366 Rad Exam; Hip Unilat Completed 07/15/2009 [id number] Mammogram Completed 11/28/2008 [id number] Mammogram Completed 11/07/2008 [id number] Colonoscopy Completed 11/08/2007 [id number] Mammogram Completed Encounters Type Date Location Provider Dx Diagnosis Office Visit 04/28/2018 Orthopedic Dean Shawn, G57.62 Lesion of plantar 2:00p Services Of nerve, left lower C.M.A. limb Office Visit 04/17/2018 [facility] Edgarlotus Dennis I35.0 Nonrheumatic aortic 1:45p Of Marisol Storm M.D., (valve) stenosis [facility] Office Visit 04/03/2018 [facility] Internal Leeannany Martinez, Z01.810 Encounter for 11:00a Medicine - [place] RPA-C preprocedural Rd cardiovascular examination I48.0 Paroxysmal atrial fibrillation Z79.01 intermediate designer (current) use of anticoagulants R22.32 Localized swelling, mass and lump, left upper limb I10 Essential (primary) hypertension Office Visit 03/22/2018 9:00a Orthopedic Candelario R22.32 Localized Services Of MD Levy swelling, mass and C.M.A. 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, left lower limb M79.672 Pain in left foot Z23 Encounter for immunization Office Visit 02/06/2018 1:30p [facility] Edgar Dennis I48.0 Paroxysmal atrial Cardiology Of Patricia Storm, fibrillation [facility] Office Visit 09/09/2017 2:40p [facility] Internal Grant Ding Z79.01 intermediate designer (current) Medicine - [place], use of Rd Patricia,FACP anticoagulants I48.0 Paroxysmal atrial fibrillation E78.2 Mixed hyperlipidemia Office Visit 07/11/2017 [facility] Internal Laurence Z01.818 Encounter for other 2:40p Medicine - Morris, SOFT WATER MECHANIC preprocedural [address] examination H25.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-related cataract, bilateral I48.0 Paroxysmal atrial fibrillation Z79.01 intermediate designer (current) use of anticoagulants K21.9 Gastro-esophageal reflux disease without esophagitis Office Visit 01/10/2017 8:20a [facility] Internal Grant Ding R10.32 Left lower Medicine - Pelon Gay M.D.,FACP quadrant pain Rd Z23 Encounter for immunization Office Visit 11/12/2016 [facility] Edgar Dennis I48.0 Paroxysmal atrial 10:00a Cardiology Of Patricia Storm, fibrillation [facility], [facility] Office Visit 11/09/2016 [facility] Internal Grant Ding Z01.810 Encounter for 2:20p Oleksandr Gay, preprocedural Eliot Gomez,FACP cardiovascular examination 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, unilateral I48.0 Paroxysmal atrial fibrillation I10 Essential (primary) hypertension Office Visit 09/22/2016 11:50a [facility] Internal Grant Ding I48.0 Paroxysmal atrial Oleksandr Gay M.D.,FACP fibrillation [address] I10 Essential (primary) hypertension E03.9 Hypothyroidism, unspecified M35.3 Polymyalgia rheumatica Office Visit 08/25/2016 9:45a [facility] Edgar Dennis R06.02 Shortness of Of [facility] Patricia Storm, breath FAC, [facility] Office Visit 08/25/2009 3:00p Orthopedic Dirk Ab, 922.32 Contusion Services Of EmreMSharon Gomez Buttock 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 848.9 Sprains & Strains Unspec Site 721.3 Spondylosis Lumbar W/O Myelopathy Plan of Treatment Future Appointment(s):05/16/2018 1:15 pm - Candelario Lockett MD at Orthopedic Services Of C.MSharon06/27/2018 9:00 am - Cat Berg MD at [facility] Internal Medicine - [address]05/08/2018 - Julio Hatfield, MDR22.32 Localized swelling , mass and lump, left upper limbFollow up:Follow up: with Dr. Lockett as previously scheduled
--- OUTSIDE RECORDS SUMMARY | 2018-05-13 00:36 | XMS REPORT | Continuity of Care Document ---
:1935 External Reference #:[id number] Author Name Angelina Hirsch Care Team Providers Name Role Phone Cat Berg M.D. Primary Care Physician Unavailable Payers Type Date Identification Numbers Payment Provider Subscriber Policy Number: [id number] [facility] Medicare Solutions Cat Brian Group Number: [id number] [address] [address] PayID: [id number] [place] [address] Expires: 2016 Policy Number: [id number] [facility] Ppo Che Brian Group Number: [id number] [address] [address] Group Name: DEVORA Dhaliwal [id number] PayID: [id number] Advance Directives Type Date Description Status Comment Other Directive 11/09/2016 Health Care Proxy Current and Verified Problems Date Description Provider Status Onset: 09/22/2016 Acquired hypothyroidism Pacheco Jones M.D.,FACP Onset: 09/22/2016 Paroxysmal atrial fibrillation Pacheco Jones M.D.FACP Onset: 11/09/2016 Essential hypertension Pacheco Jones M.D.,FACP Onset: 01/10/2017 Disorder of vocal cord Pacheco Jones M.D.,FACP Onset: 09/09/2017 Mixed hyperlipidemia Pacheco Jones M.D.,FACP Onset: 04/17/2018 Aortic valve disorder Edgar Storm M.D., Active CHRISTY, MARLEENNC Onset: 09/22/2016 Chronic atrial fibrillation Grant Gay, Inactive Patricia,FACP Inactive: 09/22/2016 Onset: 08/25/2016 Dyspnea Edgar Storm M.D., [facility], [facility] Inactive Inactive: 09/22/2016 Family History Date Family Member(s) Problem(s) Comments Father Heart Disease : (age 62 Father due to DE Years) Mother Heart Disease age 82yrs Siblings 4 First Brother due to Heart () Disease First Sister Alzheimer's Disease First Sister due to Alzheimer's () Disease Second Sister Influenza Second Sister due to Influenza () Social History Type Date Description Comments Sex Unknown Marital Status Lives With Occupation Retired Tobacco Use Start: Unknown Never Smoked Cigarettes Smoking Status Reviewed: 04/25/18 Never Smoked Cigarettes ETOH Use Denies alcohol [...] /0000 s every day Sonny Storm M.D., [facility], [facility] Synthroid Active Tablets 50mcg 90tab 1 by mouth Grant /0000 s every day Toña Gay M.D.,FACP Hydralazine Active Tablets 25mg 270ta take 1 tablet Grant HCL /0000 bs by mouth three Lizzy. 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 02/05 Omeprazole 01/[address] 20mg 30cap 1 by mouth s every day for Morris, - 2 wks then as 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 07/11 Magnesium 0000 Hx Tablets 400mg 1 by mouth Unknown /0000 every day - 08/24 Flexeril Hx Tablets 10mg 1 by mouth two Unknown /0000 to three times - a day as 08/24 Magnesium Hx Tablets 400mg 1 by mouth Unknown Oxide /0000 every day - 07/11 Medications Administered in Office Medication Date Status Form Strength Qnty SIG Indications Ordering Provider Inj, Administered Injection Edgar Dennis Regadenoson, 017 Emeterio, 0.1 MG Patricia, [facility], FASNC Technetium TC Administered Injection Edgar Dennis 99M 017 Isabel Storm M.D., [facility], Per Unit Dose FASPARAM Up To 40 Millicuries Immunizations CPT Code Status Date Vaccine Lot # [id number] Given 02/27/2018 Influenza Virus Vaccine, Quadrivalent, Split, [id number] Preservative Free [id number] Given 02/27/2018 Pneumococcal Conjugate Vaccine 13 Valent For [id number] Intramuscular Use 68256 Given 01/10/2017 Influenza Virus Vaccine, Quadrivalent, Split, [id number] Preservative Free 41632 Given 11/05/2014 Pneumonia Vaccine 55663 Given 01/30/2005 Pneumonia Vaccine Vital Signs Date Vital Result Comment 04/25/2018 10:41am Height 65 inches 5'5" Weight [...] Date Facility Test Result H/L Range Note Order 04/03/2018 [facility] E[facility] <pending> Protime W/ Inr 03/30/2018 [facility] Prothrombin Time 23.7 Inr 1.9 Protime W/ Inr 02/27/2018 [facility] Prothrombin Time 23.9 Inr 2.0 Protime W/ Inr 02/20/2018 [facility] Prothrombin Time 20.6 Inr 1.7 Protime W/ Inr 02/13/2018 [facility] Prothrombin Time 22.9 Inr 1.9 Basic Metabolic Panel 02/02/2018 [facility] Sodium 140 mmol/L N 135-145 [address] [place] [address] [phone] Potassium 4.8 mmol/L N 3.5-5.0 Chloride 104 mmol/L N 101-111 Co2 Carbon Dioxide 32 mmol/L N 22-32 Anion Gap 4 mmol/L N 2-11 Glucose 80 mg/dL N 70-100 Blood Urea Nitrogen 16 mg/dL N 6-24 Creatinine 0.83 mg/dL N 0.51-0.95 BUN/Creatinine Ratio 19.3 N 8-20 Calcium 9.5 mg/dL N 8.6-10.3 Egfr Non- 65.5 >60 Egfr 79.2 >60 1 CBC Auto Diff 02/02/2018 [facility] White Blood 7.8 10^3/uL N 3.5-10.[address] [place] [address] [phone] Red Blood Count 4.36 10^6/uL N 4.00-5.40 [...] Blood Cells % 0.1 Laboratory test 02/02/2018 [facility] Digoxin 1.7 ng/ml N 0.8- 2.[address] [place] [address] [phone] Protime W/ Inr 02/02/2018 [facility] Prothrombin Time 21.8 Inr 1.8 Protime W/ Inr 01/06/2018 [facility] Prothrombin Time 23.9 Inr 2.0 Protime W/ Inr 11/29/2017 [facility] Prothrombin Time 30.7 Inr 2.5 Protime W/ Inr 11/01/2017 [facility] Prothrombin Time 29.4 Inr 2.4 Protime W/ Inr 10/04/2017 [facility] Prothrombin Time 36.6 Inr 3.0 Protime W/ Inr 09/26/2017 [facility] Prothrombin Time 39.0 Inr 3.2 Protime W/ Inr 09/09/2017 [facility] Prothrombin Time 23.2 Inr 1.9 Protime W/ Inr 08/31/2017 [facility] Prothrombin Time 16.3 Inr 1.3 Laboratory 08/31/2017 [facility] TSH (Thyroid Stim 3.40 N 0.34 -5.60 2 test finding [address] Horm) mcIU/[place] [address] [phone] Lipid Profile 08/31/2017 [facility] Triglycerides 208 mg/dL 3 (Trig/Chol/HDL [address] ) [place] [address] [phone] Cholesterol 206 mg/dL 4 HDL Cholesterol 33.6 mg/dL 5 LDL Cholesterol 131 mg/dL 6 Laboratory test 08/31/2017 [facility] Digoxin 0.7 ng/ml Low 0.8-2.0 [address] [place] [address] [phone] Inr/Protime 08/31/2017 [facility] Inr 2.30 High 0.77-1.[address] [place] [address] [phone] Inr/Protime 08/02/2017 [facility] Inr 2.49 High 0.77-1.02 [address] [place] [address] [phone] Protime W/ Inr 07/11/2017 [facility] Prothrombin 30.8 Time Inr 2.5 Protime W/ Inr 06/20/2017 Other Rendering Inr 2.1 Protime W/ Inr 05/18/2017 Other Rendering Inr 2.6 Protime W/ Inr 04/21/2017 Other Rendering Inr 2.4 Protime W/ Inr 03/30/2017 Other Rendering Inr 2.4 Protime W/ Inr 03/23/2017 Other Rendering Inr 3.3 Protime W/ Inr 02/17/2017 [facility] Prothrombin Time 27.4 Inr 2.2 Protime W/ Inr 02/03/2017 [facility] Prothrombin Time 19.3 Inr 1.6 Protime W/ Inr 01/18/2017 [facility] Prothrombin Time 28.7 Inr 2.3 Comp Metabolic Panel 01/10/2017 [facility] Sodium 138 mmol/L N 133-[address] [place] [address] [phone] Potassium 4.7 mmol/L N 3.5-5.0 Chloride 103 [...] N >60 8 CBC Auto Diff 01/10/2017 [facility] White Blood 6.9 10^3/uL N 3.5-10.[address] [place] [address] [phone] Red Blood Count 4.46 10^6/uL N 4.0-5.4 [...] Cells % 0 N Laboratory test 01/10/2017 [facility] Lipase 24 U/L N 11.0- 82.0 finding [address] [place] [address] [phone] Inr/Protime 01/10/2017 [facility] Inr 3.50 High 0.89-1.11 [address] [place] [address] [phone] Protime W/ Inr 12/20/2016 [facility] Prothrombin Time 35.3 Inr 2.9 Protime W/ Inr 12/03/2016 [facility] Prothrombin Time 24.8 Inr 2.0 Basic Metabolic Panel 11/25/2016 [facility] Sodium 137 mmol/L N 133-145 [address] [place] [address] [phone] Potassium 4.3 mmol/L N 3.5-5.0 Chloride 104 mmol/L N 101-111 Co2 Carbon Dioxide 27 mmol/L N 22-32 Anion Gap 6 mmol/L N 2-11 Glucose 91 mg/dL N 70-100 Blood Urea Nitrogen 10 mg/dL N 6-24 Creatinine 0.76 mg/dL N 0.51-0.95 BUN/Creatinine Ratio 13.2 N 8-20 Calcium 9.1 mg/dL N 8.6-10.3 Egfr Non- 72.7 N >60 Egfr 93.5 N >60 9 Inr/Protime 11/25/2016 [facility] Inr 1.56 High 0.89-1.11 [address] [place] [address] [phone] CBC Auto Diff 11/25/2016 [facility] White Blood 8.3 N 3.5- 10.[address] Count 10^3/[place] [address] [phone] Red Blood Count 4.32 10^6/uL N 4.0-5.4 [...] Nucleated Red Blood Cells % 0 N CBC Auto Diff 11/10/2016 [facility] White Blood 7.7 10^3/uL N 3.5-10.[address] [place] [address] [phone] Red Blood Count 4.63 10^6/uL N 4.0-5.4 [...] Blood Cells % 0.2 N Inr/Protime 11/10/2016 [facility] Inr 2.22 High 0.89-1.[address] [place] [address] [phone] Comp Metabolic 11/10/2016 [facility] Sodium 137 mmol/L N 133- [address] [place] [address] [phone] Potassium 4.3 mmol/L N 3.5-5.0 Chloride 102 [...] N >60 10 Protime W/ Inr 10/25/2016 [facility] Prothrombin Time 33.0 Inr 2.7 Basic Metabolic Panel 09/22/2016 [facility] Sodium 138 mmol/L N 133-[address] [place] [address] [phone] Potassium 4.5 mmol/L N 3.5-5.0 Chloride 103 mmol/L N 101-111 Co2 Carbon Dioxide 30 mmol/L N 22-32 Anion Gap 5 mmol/L N 2-11 Glucose 93 mg/dL N 70-100 Blood Urea Nitrogen 11 mg/dL N 6-24 Creatinine 0.83 mg/dL N 0.51-0.95 BUN/Creatinine Ratio 13.3 N 8-20 Calcium 9.4 mg/dL N 8.6-10.3 Egfr Non- 65.8 N >60 Egfr 84.6 N >60 11 Laboratory test 09/22/2016 [facility] TSH (Thyroid 2.88 mcIU/mL N 0.34-5.[address] Stim Horm) [place] [address] [phone] Free T4 (Free Thyroxine) 0.87 ng/dL N 0.61-1.12 Digoxin 1.1 ng/ml N 0.8-2.0 Inr/Protime 09/22/2016 [facility] Inr 2.41 High 0.89-1.[address] [place] [address] [phone] Laboratory test 09/22/2016 [facility] Erythrocyte Sed 29 mm/Hr N 0-[address] [place] [address] [phone] Inr/Protime 09/01/2016 [facility] Inr 2.38 High 0.89-1.[address] [place] [address] [phone] 1 Because ethnic data is not always [...] (or dialysis) Procedures Date Code Description Status 04/24/2018 [id number] Diabetic Retinal Eye Exam Completed 04/17/2018 89490 EKG Tracing & Interpretation Completed 04/10/2018 32939 ECHO Transthoracic, Real-Time 2D With Doppler And Completed Color Flow 04/10/2018 91507 ECHO Transthoracic, Real-Time 2D With Doppler And Completed Color Flow 04/03/2018 17718 EKG Tracing & Interpretation Completed 03/06/2018 [id number] Diabetic Retinal Eye Exam Completed 02/16/2018 [id number] Diabetic Retinal Eye Exam Completed 02/06/2018 72501 EKG Tracing & Interpretation Completed 02/22/2017 [id number] Mammogram Completed 11/12/2016 25164 EKG Tracing & Interpretation Completed 09/06/2016 44895 Stress Test Completed 09/06/2016 62231 Myocardial Perfusion Imaging Tomographic (Spect) Completed Multiple Studies 09/03/2016 56085 ECHO Transthoracic, Real-Time 2D With Doppler And Completed Color Flow 08/25/2016 16697 EKG Tracing & Interpretation Completed 12/26/2015 [id number] Mammogram Completed 12/19/2014 [id number] Mammogram Completed 12/24/2013 [id number] Mammogram Completed 12/21/2012 [id number] Mammogram Completed 12/24/2011 [id number] Mammogram Completed 02/11/2010 [id number] Mammogram Completed 08/25/2009 11438 Rad Exam; Pelvis Completed 08/25/2009 67073 Rad Exam; Spine Lumbosacral Completed 08/25/2009 24819 Rad Exam; Hip Unilat Completed 07/15/2009 [id number] Mammogram Completed 11/28/2008 [id number] Mammogram Completed 11/07/2008 [id number] Colonoscopy Completed 11/08/2007 [id number] Mammogram Completed Encounters Type Date Location Provider Dx Diagnosis Office Visit 04/17/2018 [facility] Edgarlotus Dennis I35.0 Nonrheumatic aortic 1:45p Of Marisol Storm M.D., (valve) stenosis [facility], [facility] Office Visit 04/03/2018 [facility] Internal Leeanna Marker, Z01.810 Encounter for 11:00a Medicine - [place] R[place]-C preprocedural Rd cardiovascular examination I48.0 Paroxysmal atrial fibrillation Z79.01 senior care (current) use of anticoagulants R22.32 Localized swelling, mass and lump, left upper limb I10 Essential (primary) hypertension Office Visit 03/22/2018 9:00a Orthopedic Candelario R22.32 Localized Services Of MD Levy swelling, mass and [facility] lump, left upper limb Office Visit 02/27/2018 8:40a [facility] Internal Grant Ding Z23 Encounter for Medicine - [place], immunization Rd Patricia,FACP M71.332 Other bursal cyst, left wrist I48.0 Paroxysmal atrial fibrillation Z79.01 senior care (current) use of anticoagulants G57.62 Lesion of plantar nerve, left lower limb M79.672 Pain in left foot Z23 Encounter for immunization Office Visit 02/06/2018 1:30p [facility] Edgar Dennis I48.0 Paroxysmal atrial Cardiology Of Patricia Storm, fibrillation [facility], [facility] Office Visit 09/09/2017 2:40p [facility] Internal Grant Ding 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 - [place], use of Rd Patricia,FACP anticoagulants I48.0 Paroxysmal atrial fibrillation E78.2 Mixed hyperlipidemia Office Visit 07/11/2017 [facility] Internal Laurence Z01.818 Encounter for other 2:40p Oleksandr Morris NP preprocedural [place] [address] examination H25.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-related cataract, bilateral I48.0 Paroxysmal atrial fibrillation 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 K21.9 Gastro-esophageal reflux disease without esophagitis Office Visit 01/10/2017 8:20a [facility] Internal Grant Ding R10.32 Left lower Medicine - [place] Gay M.D.,FACP quadrant pain Rd Z23 Encounter for immunization [facility]oxysmal atrial 10:00a Cardiology Of Patricia Storm, fibrillation [facility], [facility] Office Visit 11/09/2016 [facility] Internal Grant Ding Z01.810 Encounter for 2:20p Medicine Rosa Gay, preprocedural Eliot Gomez,FACP cardiovascular examination 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, unilateral I48.0 Paroxysmal atrial fibrillation I10 Essential (primary) hypertension Office Visit 09/22/2016 11:50a [facility] Jillian Ding I48.0 Paroxysmal atrial Oleksandr Gay M.D.,FACP fibrillation [address] I10 Essential (primary) hypertension E03.9 Hypothyroidism, unspecified M35.3 Polymyalgia rheumatica Office Visit 08/25/2016 9:45a [facility] Edgarlotus Dennis R06.02 Shortness of Of [facility] Patricia Storm, breath [facility] Office Visit 08/25/2009 3:00p Orthopedic Dirk Ab, 922.32 Contusion Services Of M.AZulema Gomez Buttock 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
--- OUTSIDE RECORDS SUMMARY | 2018-05-13 00:36 | XMS REPORT | Continuity of Care Document ---
:1935 External Reference #:[id number] Author Name Latonya Vargas Care Team Providers Name Role Phone Cat eBrg M.D. Primary Care Physician Unavailable Payers Type Date Identification Numbers Payment Provider Subscriber Policy Number: [id number] [facility] [employer] Cat Brian Group Number: [id number] [address] [address] PayID: [id number] [place] [address] Expires: 2016 Policy Number: [id number] [facility] Ppo Che Brian Group Number: [id number] [address] [address] Group Name: DEVORA Dhaliwal [id number] PayID: [id number] Advance Directives Type Date Description Status Comment Other Directive 11/09/2016 Health Care Proxy Current and Verified Problems Date Description Provider Status Onset: 09/22/2016 Acquired hypothyroidism Pacheco Jones M.D.,FACP Onset: 09/22/2016 Paroxysmal atrial fibrillation Pacheco Jones M.D.FACP Onset: 11/09/2016 Essential hypertension Pacheco Jones M.D.FACP Onset: 01/10/2017 Disorder of vocal cord Pacheco Jones M.D.FACP Onset: 09/09/2017 Mixed hyperlipidemia Pacheco Jones M.D.FACP Onset: 04/17/2018 Aortic valve disorder Edgar Storm M.D., Active CHRISTY, FASNC Onset: 09/22/2016 Chronic atrial fibrillation Grant Gay, Inactive PatriciaFACP Inactive: 09/22/2016 Onset: 08/25/2016 Dyspnea Edgar Storm M.D., [facility], [facility] Inactive Inactive: 09/22/2016 Family History Date Family Member(s) Problem(s) Comments Father Heart Disease : (age 62 Father due to MO Years) Mother Heart Disease age 82yrs Siblings 4 First Brother due to Heart () Disease First Sister Alzheimer's Disease First Sister due to Alzheimer's () Disease Second Sister Influenza Second Sister due to Influenza () Social History Type Date Description Comments Sex Unknown Marital Status Lives With Occupation Retired Tobacco Use Start: Unknown Never Smoked Cigarettes Smoking Status Reviewed: 04/17/18 Never Smoked Cigarettes ETOH Use Denies alcohol [...] 5/wk Toña Gay, PO qpm or as PatriciaFACYvette directed Digoxin Active Tablets 250mcg 90tab 1 by mouth Edgar /0000 s every day Sonny Storm M.D., [facility], [facility] Synthroid Active Tablets 50mcg 90tab 1 by mouth Grant /0000 s every day Toña Gay M.D.,FACP Hydralazine Active Tablets 25mg 270ta take 1 tablet Grant HCL /0000 bs by mouth three Lizzy. 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 02/05 Omeprazole 01/[address] 20mg 30cap 1 by mouth s every day for Morris, - 2 wks then as 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 07/11 Magnesium 0000 Hx Tablets 400mg 1 [...] Dennis Regadenoson, 017 Emeterio, 0.1 MG Patricia, [facility], FASNC Technetium TC Administered Injection Edgar Dennis 99M 017 Isabel Storm M.D., [facility], Per Unit Dose FASPARAM Up To 40 Millicuries Immunizations CPT Code Status Date Vaccine Lot # [id number] Given 02/27/2018 Influenza Virus Vaccine, Quadrivalent, Split, [id number] Preservative Free [id number] Given 02/27/2018 Pneumococcal Conjugate Vaccine 13 Valent For [id number] Intramuscular Use 66219 Given 01/10/2017 Influenza Virus Vaccine, Quadrivalent, Split, [id number] Preservative Free 02428 Given 11/05/2014 Pneumonia Vaccine 07067 Given 01/30/2005 Pneumonia Vaccine Vital Signs Date Vital Result Comment 04/17/2018 1:19pm Height 65 inches 5'5" Weight [...] Test Result H/L Range Note Order 04/03/2018 [facility] EKG <pending> Protime W/ Inr 03/30/2018 [facility] Prothrombin Time 23.7 Inr 1.9 Protime W/ Inr 02/27/2018 [facility] Prothrombin Time 23.9 Inr 2.0 Protime W/ Inr 02/20/2018 [facility] Prothrombin Time 20.6 Inr 1.7 Protime W/ Inr 02/13/2018 [facility] Prothrombin Time 22.9 Inr 1.9 Basic Metabolic Panel 02/02/2018 [facility] Sodium 140 mmol/L N 135-[address] [place] [address] [phone] Potassium 4.8 mmol/L N 3.5-5.0 Chloride 104 mmol/L N 101-111 Co2 Carbon Dioxide 32 mmol/L N 22-32 Anion Gap 4 mmol/L N 2-11 Glucose 80 mg/dL N 70-100 Blood Urea Nitrogen 16 mg/dL N 6-24 Creatinine 0.83 mg/dL N 0.51-0.95 BUN/Creatinine Ratio 19.3 N 8-20 Calcium 9.5 mg/dL N 8.6-10.3 Egfr Non- 65.5 >60 Egfr 79.2 >60 1 CBC Auto Diff 02/02/2018 [facility] White Blood 7.8 10^3/uL N 3.5-10.[address] [place] [address] [phone] Red Blood Count 4.36 10^6/uL N 4.00-5.40 [...] Blood Cells % 0.1 Laboratory test 02/02/2018 [facility] Digoxin 1.7 ng/ml N 0.8- 2.[address] [place] [address] [phone] Protime W/ Inr 02/02/2018 [facility] Prothrombin Time 21.8 Inr 1.8 Protime W/ Inr 01/06/2018 [facility] Prothrombin Time 23.9 Inr 2.0 Protime W/ Inr 11/29/2017 [facility] Prothrombin Time 30.7 Inr 2.5 Protime W/ Inr 11/01/2017 [facility] Prothrombin Time 29.4 Inr 2.4 Protime W/ Inr 10/04/2017 [facility] Prothrombin Time 36.6 Inr 3.0 Protime W/ Inr 09/26/2017 [facility] Prothrombin Time 39.0 Inr 3.2 Protime W/ Inr 09/09/2017 [facility] Prothrombin Time 23.2 Inr 1.9 Protime W/ Inr 08/31/2017 [facility] Prothrombin Time 16.3 Inr 1.3 Laboratory 08/31/2017 [facility] TSH (Thyroid Stim 3.40 N 0.34 -5.60 [address] Horm) mcIU/[place] [address] [phone] Lipid Profile 08/31/2017 [facility] Triglycerides 208 mg/dL 3 (Trig/Chol/HDL [address] ) [place] [address] [phone] Cholesterol 206 mg/dL 4 HDL Cholesterol 33.6 mg/dL 5 LDL Cholesterol 131 mg/dL 6 Laboratory test 08/31/2017 [facility] Digoxin 0.7 ng/ml Low 0.8-2.[address] [place] [address] [phone] Inr/Protime 08/31/2017 [facility] Inr 2.30 High 0.77-1.02 [place] [address] [phone] Inr/Protime 08/02/2017 [facility] Inr 2.49 High 0.77-1.02 [place] [address] [phone] Protime W/ Inr 07/11/2017 [facility] Prothrombin 30.8 Time Inr 2.5 Protime W/ Inr 06/20/2017 Other Rendering Inr 2.1 Protime W/ Inr 05/18/2017 Other Rendering Inr 2.6 Protime W/ Inr 04/21/2017 Other Rendering Inr 2.4 Protime W/ Inr 03/30/2017 Other Rendering Inr 2.4 Protime W/ Inr 03/23/2017 Other Rendering Inr 3.3 Protime W/ Inr 02/17/2017 [facility] Prothrombin Time 27.4 Inr 2.2 Protime W/ Inr 02/03/2017 [facility] Prothrombin Time 19.3 Inr 1.6 Protime W/ Inr 01/18/2017 [facility] Prothrombin Time 28.7 Inr 2.3 Comp Metabolic Panel 01/10/2017 [facility] Sodium 138 mmol/L N 133-[address] [place] [address] [phone] Potassium 4.7 mmol/L N 3.5-5.0 Chloride 103 [...] N >60 8 CBC Auto Diff 01/10/2017 [facility] White Blood 6.9 10^3/uL N 3.5-10.[address] [place] [address] [phone] Red Blood Count 4.46 10^6/uL N 4.0-5.4 [...] Cells % 0 N Laboratory test 01/10/2017 [facility] Lipase 24 U/L N 11.0- 82.0 finding [address] [place] [address] [phone] Inr/Protime 01/10/2017 [facility] Inr 3.50 High 0.89-1.11 [address] [place] [address] [phone] Protime W/ Inr 12/20/2016 [facility] Prothrombin Time 35.3 Inr 2.9 Protime W/ Inr 12/03/2016 [facility] Prothrombin Time 24.8 Inr 2.0 Basic Metabolic Panel 11/25/2016 [facility] Sodium 137 mmol/L N 133-145 [address] [place] [address] [phone] Potassium 4.3 mmol/L N 3.5-5.0 Chloride 104 mmol/L N 101-111 Co2 Carbon Dioxide 27 mmol/L N 22-32 Anion Gap 6 mmol/L N 2-11 Glucose 91 mg/dL N 70-100 Blood Urea Nitrogen 10 mg/dL N 6-24 Creatinine 0.76 mg/dL N 0.51-0.95 BUN/Creatinine Ratio 13.2 N 8-20 Calcium 9.1 mg/dL N 8.6-10.3 Egfr Non- 72.7 N >60 Egfr 93.5 N >60 9 Inr/Protime 11/25/2016 [facility] Inr 1.56 High 0.89-1.11 [address] [place] [address] [phone] CBC Auto Diff 11/25/2016 [facility] White Blood 8.3 N 3.5- 10.[address] Count 10^3/[place] [address] [phone] Red Blood Count 4.32 10^6/uL N 4.0-5.4 [...] % 0 N CBC Auto Diff 11/10/2016 [facility] White Blood 7.7 10^3/uL N 3.5-10.[address] [place] [address] [phone] Red Blood Count 4.63 10^6/uL N 4.0-5.4 [...] Blood Cells % 0.2 N Inr/Protime 11/10/2016 [facility] Inr 2.22 High 0.89-1.[address] [place] [address] [phone] Comp Metabolic 11/10/2016 [facility] Sodium 137 mmol/L N 133- 145 Panel [address] [place] [address] [phone] Potassium 4.3 mmol/L N 3.5-5.0 Chloride 102 [...] N >60 10 Protime W/ Inr 10/25/2016 [facility] Prothrombin Time 33.0 Inr 2.7 Basic Metabolic Panel 09/22/2016 [facility] Sodium 138 mmol/L N 133-145 [address] [place] [address] [phone] Potassium 4.5 mmol/L N 3.5-5.0 Chloride 103 mmol/L N 101-111 Co2 Carbon Dioxide 30 mmol/L N 22-32 Anion Gap 5 mmol/L N 2-11 Glucose 93 mg/dL N 70-100 Blood Urea Nitrogen 11 mg/dL N 6-24 Creatinine 0.83 mg/dL N 0.51-0.95 BUN/Creatinine Ratio 13.3 N 8-20 Calcium 9.4 mg/dL N 8.6-10.3 Egfr Non- 65.8 N >60 Egfr 84.6 N >60 11 Laboratory test 09/22/2016 [facility] TSH (Thyroid 2.88 mcIU/mL N 0.34-5.60 finding [address] [facility] Stim [place]orm) [place] [address] [phone] Free T4 (Free Thyroxine) 0.87 ng/dL N 0.61-1.12 Digoxin 1.1 ng/ml N 0.8-2.0 Inr/Protime 09/22/2016 [facility] Inr 2.41 High 0.89-1.[address] [place], [place] [address] [phone] Laboratory test 09/22/2016 [facility] Erythrocyte Sed 29 mm/Hr N 0-[address] Rate [place], [place] [address] [phone] Inr/Protime 09/01/2016 [facility] Inr 2.38 High 0.89-1.[address] [place], [place] [address] [phone] 1 Because ethnic data is not always [...] (or dialysis) Procedures Date Code Description Status 04/17/2018 24997 EKG Tracing & Interpretation Completed 04/10/2018 78906 ECHO Transthoracic, Real-Time 2D With Doppler And Completed Color Flow 04/03/2018 70223 EKG Tracing & Interpretation Completed 03/06/2018 [id number] Diabetic Retinal Eye Exam Completed 02/16/2018 [id number] Diabetic Retinal Eye Exam Completed 02/06/2018 50338 EKG Tracing & Interpretation Completed 02/22/2017 [id number] Mammogram Completed 11/12/2016 40203 EKG Tracing & Interpretation Completed 09/06/2016 45581 Stress Test Completed 09/06/2016 90240 Myocardial Perfusion Imaging Tomographic (Spect) Completed Multiple Studies 09/03/2016 16405 ECHO Transthoracic, Real-Time 2D With Doppler And Completed Color Flow 08/25/2016 73842 EKG Tracing & Interpretation Completed 12/26/2015 [id number] Mammogram Completed 12/19/2014 [id number] Mammogram Completed 12/24/2013 [id number] Mammogram Completed 12/21/2012 [id number] Mammogram Completed 12/24/2011 [id number] Mammogram Completed 02/11/2010 [id number] Mammogram Completed 08/25/2009 04485 Rad Exam; Pelvis Completed 08/25/2009 92941 Rad Exam; Spine Lumbosacral Completed 08/25/2009 90154 Rad Exam; Hip Unilat Completed 07/15/2009 [id number] Mammogram Completed 11/28/2008 [id number] Mammogram Completed 11/07/2008 [id number] Colonoscopy Completed 11/08/2007 [id number] Mammogram Completed Encounters Type Date Location Provider Dx Diagnosis Office Visit 04/03/2018 [facility] Internal Leeanna Marker, Z01.810 Encounter for 11:00a Medicine - [place] RPA-C preprocedural Rd cardiovascular examination I48.0 Paroxysmal atrial fibrillation Z79.01 group home (current) use of anticoagulants R22.32 Localized swelling, mass and lump, left upper limb I10 Essential (primary) hypertension Office Visit 03/22/2018 9:00a Orthopedic Candelario R22.32 Localized Services Of MD Levy swelling, mass and C.M.A. lump, left upper limb Office Visit 02/27/2018 8:40a [facility] Internal Grant Ding Z23 Encounter for Medicine - [place], immunization Rd M.DZulema,FACP M71.332 Other bursal cyst, left wrist I48.0 Paroxysmal atrial fibrillation Z79.01 group home (current) use of anticoagulants G57.62 Lesion of plantar nerve, left lower limb M79.672 Pain in left foot Z23 Encounter for immunization Office Visit 02/06/2018 1:30p Miguel A Dennis I48.0 Paroxysmal atrial Cardiology Of Patricia Storm, fibrillation [facility] FAC, FASNC Office Visit 09/09/2017 2:40p [facility] Internal Grant Ding 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 - [place] Victor Hugo, use of Rd M.DZulema,FACP anticoagulants I48.0 Paroxysmal atrial fibrillation E78.2 Mixed hyperlipidemia Office Visit 07/11/2017 [facility] Internal Laurence Z01.818 Encounter for other 2:40p Oleksandr Morris, MCKINLEY preprocedural [place] [address] examination H25.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-related cataract, bilateral I48.0 Paroxysmal atrial fibrillation 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 K21.9 Gastro-esophageal reflux disease without esophagitis Office Visit 01/10/2017 8:20a [facility] Internal Grant Ding R10.32 Left lower Medicine - [place] Patricia Gay,FACP quadrant pain Rd Z23 Encounter for immunization Office Visit 11/12/2016 Miguel A Dennis I48.0 Paroxysmal atrial 10:00a Cardiology Of Patricia Storm, fibrillation [facility], [facility] Office Visit 11/09/2016 [facility] Internal Grant Ding Z01.810 Encounter for 2:20p Oleksandr Gay preprocedural Eliot Gomez,[facility] cardiovascular examination 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, unilateral I48.0 Paroxysmal atrial fibrillation I10 Essential (primary) hypertension Office Visit 09/22/2016 11:50a [facility] Internal Grant Ding I48.0 Paroxysmal atrial Oleksandr Gay M.D.,[facility] fibrillation [address] I10 Essential (primary) hypertension E03.9 Hypothyroidism, unspecified M35.3 Polymyalgia rheumatica Office Visit 08/25/2016 9:45a [place] [facility] Edgar Dennis R06.02 Shortness of Of Marisol Storm M.D., breath [facility], [facility] Office Visit 08/25/2009 3:00p Orthopedic Dirk Ab, 922.32 [facility] Buttock 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 848.9 Sprains & Strains Unspec Site 721.3 Spondylosis Lumbar W/O Myelopathy Plan of Treatment Future Appointment(s):05/01/2018 11:30 am - ADA Villed[facility]05/01/2018 11:30 am - Candelario Lockett MD at [facility]04/25/2018 10:15 am - Candelario Lockett MD at [facility]06/27/2018 9:00 am - Cat Berg MD at [facility] Internal Medicine - [place] [address]04/17/2018 - Edgar Storm M.D., [facility], CTJGZF73.0 Nonrheumatic aortic (valve) stenosisComments:As discussed, your heart is stable. I feel you may have needed low stress left wrist surgery with Dr. Lockett as scheduled 05/01/18.Follow up:one year
--- NOTE | 2018-05-13 00:37 | ED ---
Neurological HPI - HPI Summary HPI Summary: An 82 y/o female presents to [facility] with a chief complaint of right sided numbness since 21:00 05/12/18. She denies any pain, rating her pain as a 0/10 in severity. She claims that she has had this numbness on and off, but reports that it usually goes away after a short amount of time, but this remained. Currently she feels some weakness on her right side, but claims that this is baseline. She denies drinking or smoking. She claims that she has a leaky heart valve. Dr. Thurman evaluated the patient at 00:25 giving the patient a neuro exam. Jasmina zhu was called at 00:[address] was taken at 00:30. Vital signs while in room - HR: 61bpm, O2 Sat: 98, BP: 182/71 - History of Current Complaint Chief Complaint: EDGeneral Stated Complaint: RIGHT SIDE NUMBNESS Hx Obtained From: Patient Onset/Duration: Sudden Onset, Started hours ago, Resolved Timing: Constant Onset Severity: Moderate Current Severity: Mild Pain Intensity: 0 Pain Scale Used: 0-10 Numeric Character: Numbness/Tingling Aggravating: Nothing Alleviating: Nothing Associated Signs and Symptoms: Negative: Impaired Speech, Fever - Allergy/Home Medications Allergies/Adverse Reactions: Allergies Allergy/AdvReac Type Severity Reaction Status Date / Time NSAIDS (Non-Steroidal Allergy Severe Anaphylatic Verified 05/13/18 00:24 Anti-Inflamma Shock aspirin Allergy Anaphylatic Verified 05/13/18 02:15 Shock Iodinated Contrast- Oral and Allergy Blisters Verified 05/14/18 14:21 IV Dye iv contrast Allergy Severe Blisters Uncoded 05/13/18 00:24 Home Medications: Home Medications Warfarin TAB(*) [Coumadin TAB(*)] 4 mg PO SUTUTHSA 05/13/18 [History Confirmed 05/13/18] PMH/Surg Hx/FS Hx/Imm Hx Endocrine/Hematology History: Reports: Hx Thyroid Disease - ON MEDS PT. STATES CONTROLLED Denies: Hx Diabetes Cardiovascular History: Reports: Hx Hypertension - ON MEDS PT. STATES CONTROLLED , Hx Valvular Heart Disease - LEAKY AORTA, Other Cardiovascular Problems/ Disorders - paroxysmal a-fib Denies: Hx Pacemaker/ICD Respiratory History: Denies: Hx Asthma, Hx Chronic Obstructive Pulmonary Disease (COPD) GI History: Reports: Hx Gastroesophageal Reflux Disease - ON MEDS Denies: Hx Ulcer Musculoskeletal History: Reports: Hx Arthritis - bilateral knees and shoulders, Hx Bursitis Sensory History: Reports: Hx Cataracts - BILAT, Hx Contacts or Glasses - glasses Denies: Hx Hearing Aid Opthamlomology History: Reports: Hx Cataracts - BILAT, Hx Contacts or Glasses - glasses Psychiatric History: Denies: Hx Panic Disorder - Cancer History Hx Chemotherapy: No Hx Radiation Therapy: No - Surgical History Surgery Procedure, Year, and Place: hysterectomy, t&a, LEFT KNEE SCOPING 1999, LEFT VERISCOSE VEIN SURGERY 2016. LEFT CATARACT REMOVED 2018, right eye cataract removed right eye Hx Anesthesia Reactions: No - Immunization History Date of Tetanus Vaccine: UTD Date of Influenza Vaccine: UTD Infectious Disease History: No Infectious Disease History: Denies: Hx Hepatitis, Hx Human Immunodeficiency Virus (HIV), Traveled Outside the [place] in Last 30 Days - Family History Known Family History: Positive: Cardiac Disease - Social History Alcohol Use: None Substance Use Type: Reports: None Smoking Status (MU): Never Smoked Tobacco Review of Systems Negative: Fever Neurological: Negative - difficulty talking or walking Positive: Numbness All Other Systems Reviewed And Are Negative: Yes Physical Exam - Summary Physical Exam Summary: Appearance: Well-appearing, Well-nourished, lying in bed comfortably Skin: Warm, dry, no obvious rash Eyes: sclera anicteric, no conjunctival pallor ENT: mucous membranes moist, pharynx appears normal Neck: Supple, nontender Respiratory: Clear to auscultation, no signs of respiratory distress Cardiovascular: Normal S1, S2. No murmurs. Normal distal pulses in tibial and radial bilaterally. Abdomen: Soft, nontender, normal active bowel sounds present Musculoskeletal: Normal, Strength/ROM Intact, Motor function in all 4 extremities is normal and symmetric. There is no rigidity or tremor noted. Neurological: A&Ox3, awake and alert, mentation is normal, speech is fluent and appropriate, Level of consciousness nml. The patient is alert and oriented. Cranial nerves are grossly intact. Gaze is conjugate and without nystagmus. Peripheral vision is intact to confrontation. There are no gross sensory abnormalities to light touch. There is no truncal or fine motor ataxia. Gait is normal. Psychiatric: affect is normal, does not appear anxious or depressed Triage Information Reviewed: Yes Vital Signs On Initial Exam: Initial Vitals Temp Pulse Resp BP Pulse Ox 98.1 F 63 16 182/71 97 05/13/18 00:19 05/13/18 00:19 05/13/18 00:19 05/13/18 00:19 05/13/18 00:19 Vital Signs Reviewed: Yes - Chandrika Coma Scale Best Eye Response: 4 - Spontaneous Best Motor Response: 6 - Obeys Commands Best Verbal Response: 5 - Oriented Coma Scale Total: 15 Diagnostics - Vital Signs Vital Signs Temp Pulse Resp BP Pulse Ox 05/13/18 00:19 98.1 F 63 16 182/71 97 - Laboratory Result Diagrams: 05/13/18 00:46 05/13/18 00:46 Lab Statement: Any lab studies that have been ordered have been reviewed, and results considered in the medical decision making process. - Radiology CXR Radiology Interpretation Completed By: Radiologist Summary of Radiographic Findings: No acute process. Pending official imaging report. - CT Brain CT Interpretation Completed By: Radiologist Summary of CT Findings: 1. No acute intracranial abnormality. ASPECT = 10. 2. Unchanged age-related atrophy and moderate chronic small vessel ischemic. disease. ED physician has reviewed this imaging report. - EKG 00:40 Cardiac Rate: NL - 60 bpm EKG Rhythm: Sinus Rhythm Summary of EKG Findings: NSR at 60BPM, P waves, QRS complex, and T waves are within normal limits, T waves and intervals are normal, no ischemic changes. This is a normal EKG NIH Scale - NIH Scale Level of Consciousness: Alert/Keenly Responsive Ask Patient the Month and His/Her Age: Both Correct Ask Pt to Open/Close Eyes and Manager Banking/Release Non-Paretic Hand: Both Correctly Best Gaze (Only Horizontal Eye Movement): Normal Visual Field Testing: No Visual Loss Facial Paresis-Pt to Smile & Close Eyes or Grimace Symmetry: Normal/Symmetrical Motor Function - Right Arm: No Drift-Holds 10 Seconds Motor Function - Left Arm: No Drift-Holds 10 Seconds Motor Function - Right Leg: No Drift-Holds 10 Seconds Motor Function - Left Leg: No Drift-Holds 10 Seconds Limb Ataxia-Must be out of Proportion to Weakness Present: Absent Sensory (Use Pinprick to Test Arms/Legs/Trunk/Face): Normal Best Language (Describe Picture, Name Items): No Aphasia Dysarthria (Read Several Words): Normal Extinction and Inattention: No Abnormality Total Score: 0 Course/Dx - Course Course Of Treatment: An 82 y/o female presents to [facility] with a chief complaint of right sided numbness since 21:00 05/12/18. She denies any pain, rating her pain as a 0/10 in severity. She claims that she has had this numbness on and off , but reports that it usually goes away after a short amount of time, but this remained. Currently she feels some weakness on her right side, but claims that this is baseline. She denies drinking or smoking. She claims that she has a leaky heart valve. Dr. Thurman evaluated the patient at 00:25 giving the patient a neuro exam. Jasmina zhu was called at 00:[address] was taken at 00:30. GCS 15, NIH 0. Brain CT impression: 1. No acute intracranial abnormality. ASPECT = 10. 2. Unchanged age-related atrophy and moderate chronic small vessel ischemic. disease. EKG at 00:40 showed NSR at 60BPM, P waves, QRS complex, and T waves are within normal limits, T waves and intervals are normal , no ischemic changes. This is a normal EKG. CXR showed no acute process. In the ED course the patient was given Sodium Chloride IV. Blood work and chemistries obtained and are WNL. Case discucussed with Dr. Paz, Hospitalist , who will accept the patient for admission. The patient is agreeable with this plan. - Diagnoses Provider Diagnoses: CVA (cerebral vascular accident) During the Visit The Following Alert/Code Occurred: Code David - Physician Notifications Discussed Care Of Patient With: Tona Paz Time Discussed With Above Provider: 01:34 Instructed by Provider To: Admit As Inpatient Discharge - Sign-Out/Discharge Documenting (check all that apply): Patient Departure - admit Patient Received Moderate/Deep Sedation with Procedure: No - Discharge Plan Condition: Fair Disposition: ADMITTED TO [facility] - Billing Disposition and Condition Condition: FAIR Disposition: Admitted to [facility] - Attestation Statements Document Initiated by Scribe: Yes Documenting Scribe: Kenneth Herring Provider For Whom Scribe is Documenting (Include Credential): Gio Thurman MD Scribe Attestation: Kenneth Chauhan, juanibed for Gio Thurman MD on 05/15/18 at 1612. Scribe Documentation Reviewed: Yes Provider Attestation: The documentation as recorded by the scribe, Kenneth Herring accurately reflects the service I personally performed and the decisions made by me, Gio Thurman MD Status of Scribe Document: Viewed
[2018-05-13 00:57] LABS: ABS Basophils 0.1 10^3/ul (0-0.2); ABS Eosinophils 0.1 10^3/ul (0-0.6); ABS Lymphocytes 2.9 10^3/ul (1.0-4.8); ABS Monocytes 0.8 10^3/ul (0-0.8); ABS Neutrophils 5.1 10^3/ul (1.5-7.7); ABS Nucleated RBC 0 10^3/ul; Eosinophil % 1.5 %; Hematocrit 41 % (35-47); Hemoglobin 13.5 g/dl (12.0-16.0); Lymphocyte % 31.8 %; Mean Corpuscular HGB Conc 33 g/dl (31-36); Mean Corpuscular Hemoglobin 31 pg (27-31); Mean Corpuscular Volume 94 fL (80-97); Mean Platelet Volume 8.2 fL (7.4-10.4); Nucleated Red Blood Cells % 0.1; Platelet Count 274 10^3/ul (150-450); Red Blood Count 4.34 10^6/ul (4.00-5.40); Red Cell Distribution Width 14 % (10.5-15)
[2018-05-13 01:10] LABS: Activated Partial Thrombo Time 40.8 seconds (26.0-36.3); INR 1.45 (0.77-1.02)
[2018-05-13 01:15] LABS: Albumin 4.3 g/dL (3.2-5.2); Albumin/Globulin Ratio 1.4 (1-3); BUN/Creatinine Ratio 19.1 (8-20); Calcium 9.5 mg/dL (8.6-10.3); EGFR African American 73.1 (>60); EGFR Non-African American 60.4 (>60); Globulin 3.1 g/dL (2-4); HDL Cholesterol 36.3 mg/dL; Potassium 4.1 mmol/L (3.5-5.0); Total Bilirubin 0.7 mg/dL (0.2-1.0); Total Protein 7.4 g/dL (6.4-8.9)
[2018-05-13 01:16] LABS: Troponin I 0.01 ng/mL (<0.04)
[2018-05-13 02:54] LABS: TSH (Thyroid Stimulating Horm) 5.35 mcIU/mL (0.34-5.60)
[2018-05-13 03:10] LABS: Digoxin 0.8 ng/ml (0.8-2.0)
[2018-05-13 03:46] LABS: Urine Appearance Cloudy; Urine Bilirubin Negative (Negative); Urine Blood Negative (Negative); Urine Color Yellow; Urine Glucose Negative (Negative); Urine Ketones Negative (Negative); Urine Nitrite Negative (Negative); Urine Protein Negative (Negative); Urine Specific Gravity 1.016 (1.010-1.030); Urine Urobilinogen Negative (Negative)
[2018-05-13] MEDS: Enoxaparin(*) 80 MG/0.8 ML SYR SUBCUT SCH ×2 (04:02→14:00)
[2018-05-13] MEDS: Levothyroxine TAB* 50 MCG TAB PO SCH (06:09)
--- NOTE | 2018-05-13 06:19 | HP ---
CC: Dr. Berg * HISTORY AND PHYSICAL: DATE OF ADMISSION: 05/13/18 PRIMARY CARE PROVIDER: Dr. Berg. CHIEF COMPLAINT: Right-sided tingling. HISTORY OF PRESENT ILLNESS: Ms. Brian is an 82-year-old female who has a history of hypertension, atrial fibrillation, was having a break in her Coumadin therapy for left wrist surgery, hypothyroidism, and vocal cord dysfunction, who presented to the emergency room with complaints of right-sided tingling. The patient states that over the last 6 months or so, she has had intermittent episodes where her arm or leg would begin to feel tingly. She states that she thought it was just falling asleep. On the evening prior to admission, however, she was sitting, watching TV, playing on her iPad when she developed a sudden onset of right arm, leg, and right-sided facial tingling. She states that sometimes it went away quickly and sometimes it took a little bit longer; however, this time it persisted and therefore, she presented to the emergency room for evaluation. She states that the tingling continues to be present. As mentioned above, the patient had recently been off her Coumadin for her history of AFib. She had a left wrist ganglion cyst removed with Dr. Lockett on 05/01/18. In addition to the above complaints, the patient states over the last few nights, she has been feeling anxious or restless. She states she had this sensation when she was diagnosed with hypothyroidism. She denies any weakness of the right side of the body. She denies numbness sensation. It truly is the feeling as if her arm and leg and face fell asleep. PAST MEDICAL HISTORY: 1. Hypertension. 2. Atrial fibrillation. 3. Hypothyroidism. 4. Vocal cord dysfunction. PAST SURGICAL HISTORY: 1. Left wrist ganglion cyst removal. 2. Cataract surgery. 3. Tonsillectomy. 4. Hysterectomy. 5. Vein stripping. 6. Throat surgery. MEDICATIONS: 1. Coumadin 4 mg p.o. Tuesday, Tuesday, , Tuesday; 7.5 mg all other days of the week. 2. Metoprolol XL 50 mg p.o. b.i.d. 3. Levothyroxine 50 mcg p.o. daily. 4. Digoxin 0.25 mg p.o. daily. 5. Hydralazine 25 mg p.o. t.i.d. 6. PreserVision AREDS 2 one cap p.o. b.i.d. ALLERGIES: ASPIRIN, NSAIDS, and IODINE CONTRAST. FAMILY HISTORY: Mom and dad both had a history of coronary artery disease. SOCIAL HISTORY: The patient is a nonsmoker. She does not drink. 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 She is . She has 5 children. Her , Che is her healthcare proxy. REVIEW OF SYSTEMS: A complete 11-system review of systems is obtained. Pertinent positives and negatives are as per HPI and otherwise negative. PHYSICAL EXAMINATION GENERAL: The patient is a well-developed, elderly female who appears much younger than her stated age, sitting up in the stretcher, in no acute distress. VITAL SIGNS: Blood pressure 170/62, pulse 53, respirations 15, temp 98.4, O2 sat 98% on room air. HEENT: Pupils are equal and round. Extraocular muscles are intact. Oropharynx is clear. Oral mucosa is moist. NECK: There is no submandibular, cervical, or supraclavicular adenopathy. Thyroid is not enlarged. No thyroid nodules noted. PULMONARY: Lungs are clear to auscultation bilaterally. CARDIAC: Normal S1 and S2. Regular rate and rhythm. There is a 3/6 systolic murmur heard best at the left upper sternal border. The right lower extremity appears to have trace pitting edema and is larger than the left, though she had vein stripping only on the left. ABDOMEN: Bowel sounds are present. Abdomen is soft, nontender, and nondistended. MUSCULOSKELETAL: There is no cyanosis or clubbing of the digits. There is full active range of all 4 extremities. NEURO: Cranial nerves II through XII are grossly intact. Sensation is intact to light touch throughout. Strength is 5/5 and symmetric in both upper and lower extremities bilaterally. Sensation testing to light touch, the patient reports being symmetric from side to side though she continues to feel tingling of the right arm, leg, and face. PSYCH: The patient is alert. She is oriented x3. Affect appears appropriate. SKIN: Warm and dry. There are no rashes. DIAGNOSTIC STUDIES/LAB DATA: WBC 9.0, hemoglobin 13.5, hematocrit 41, platelets 274. INR of 1.45. Sodium 138, potassium 4.1, chloride 102, CO2 of 29 , BUN 17, creatinine 0.89, glucose 112, lactic acid 0.9, calcium 9.5. Bilirubin 0.7, AST 28, ALT 19, alk phos 67. Troponin 0.01. Albumin of 4.3. Triglyceride 140, total cholesterol 170, LDL 106, HDL 36. TSH pending. EKG reveals normal sinus rhythm with a first-degree AV block. There are nonspecific ST changes in the inferior and lateral leads. These are similar findings from 2015. Chest x-ray to my interpretation reveals clear lungs without focal infiltrate. CT brain reveals no acute intracranial abnormality. Unchanged age-related atrophy and moderate chronic small vessel ischemic disease is noted. ASSESSMENT AND PLAN: Ms. Brian is an 82-year-old female with a history of hypertension, atrial fibrillation who was recently off her Coumadin and hypothyroidism, who presents to the emergency room with sudden onset of right arm, leg, and face tingling. 1. Right-sided paresthesias. At this point, the patient will be admitted for evaluation of possible transient ischemic attack versus sensory cerebrovascular accident. The patient will be seen in consultation by Neurology. Neuro checks q.4 hours will be obtained. The patient cannot take non-steroidal anti- inflammatory drugs, therefore I am not adding aspirin. Her INR is subtherapeutic at this point so I will start her on full-dose Lovenox. Lipid panel reveals an LDL of 106 and therefore we will start Lipitor 40 mg nightly. She is also allergic to CONTRAST DYE; therefore I am going to hold off on a CTA. I have ordered MRI of the brain and echocardiogram. We will await further recommendations from Neurology. 2. Hypertension. The patient's blood pressure is quite elevated at this time with systolics ranging in the 160 to 180 range. As I am concerned for possible cerebrovascular accident, we will not lower her blood pressure at this point. She will be maintained on her usual home medication regimen, however. 3. Atrial fibrillation. The patient is in sinus rhythm currently. She will continue on her usual dose of Toprol-XL and Coumadin. Her Coumadin dose was just recently adjusted due to having a low INR on 05/11/18. I am not going to change her Coumadin dose now, though as above she will be started on full-dose Lovenox. 4. Hypothyroidism. I have added on a TSH and this is pending at this point. She will continue on her usual dose of Synthroid. 5. DVT prophylaxis. According to the Adult Thrombosis Prophylaxis Risk Factor Assessment Guide, the patient has a total risk factor score of 4, making her high risk. She is going to be placed on full-dose Lovenox as above. 6. Code status is full. TIME SPENT: Sixty-five minutes was spent admitting this patient. [id number]/[facility] #: [id number] DAYNA
[2018-05-13] MEDS: hydrALAZINE TAB* 25 MG PO SCH ×3 (08:00→20:47)
[2018-05-13] MEDS: Metoprolol Succinate XL TAB* 50 MG PO SCH ×2 (08:00→20:47)
[2018-05-13] MEDS: Digoxin TAB* 0.25 MG PO SCH (08:00)
[2018-05-13] MEDS ORDERED: LORazepam TAB(*) 0.5 MG PO ONE (11:34)
--- NOTE | 2018-05-13 12:50 | PN ---
Hospitalist Progress Note Date of Service: 05/13/18 HOSPITALIST ADDENDUM Mrs Brian is an 82yo F with PMH of HTN, Afib, who presented to ED with c/o right sided parestesias. Her INR is subtherapeutic in the setting of Warfarin being held for left hand surgery. Plan for MRI brain and Neurology consult.
[2018-05-13] MEDS: Warfarin TAB(*) 5 MG PO SCH (17:48)
[2018-05-13] MEDS: Atorvastatin* 40 MG TAB PO SCH (20:47)
--- NOTE | 2018-05-13 22:01 | CONS ---
CONSULTATION REPORT: DATE OF CONSULT: 05/13/17 PATIENT OF: Dr. Berg and Dr. Herrera HISTORY OF PRESENT ILLNESS: This is an 82-year-old right-handed woman with a history of hypertension and atrial fibrillation, who was recently off her Coumadin up until ganglion surgery on 05/01/18, and then it was resumed, but her Coumadin was subtherapeutic following that. She developed right-sided tingling in the leg, arm and in the cheek area without any weakness and she presented to the emergency room. This happened with acute onset, but there was no weakness, no speech problems, no visual changes, no headache. PAST MEDICAL HISTORY: She has a history of hypertension, atrial fibrillation, hypothyroidism, vocal cord dysfunction. She is status post left wrist ganglion cyst removal, cataract surgery, tonsillectomy, hysterectomy, vein stripping, throat surgery. MEDICATIONS: 1. Coumadin 4 mg four times a week and 7.5 other days of the week. 2. Metoprolol 50 mg p.o. b.i.d. 3. Levothyroxine 50 mcg daily. 4. Digoxin 0.25 mg daily. 5. Hydralazine 25 mg t.i.d. 6. PreserVision AREDS 2 one cap b.i.d. ALLERGIES: Include ASPIRIN, NSAIDS, and IODINE CONTRAST. FAMILY HISTORY: Both parents had coronary artery disease. She does not smoke. She does not drink. 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 She is with five children, lives with her . REVIEW OF SYSTEMS: Negative in all 14 spheres other than she has been feeling anxious recently, also her blood pressure has been running apparently in the 160s at home. PHYSICAL EXAM: On exam, temperature 98, pulse 63, respirations 16, blood pressure 115/40. She is alert and oriented with normal speech and comprehension. Cranial nerves II through XII were intact. Fundi were benign showing sharp disks. Motor exam revealed normal tone, strength, finger-to- nose. She had no pronator drift. Sensation is intact to light touch bilaterally. She states that there is still a slight feeling of tingling in the right side, but it is improved from before. Reflexes were 1 and equal. Toes were downgoing. Neck is supple. Chest is clear. Cardiovascular, regular rate and rhythm. Abdomen is soft with positive bowel sounds. DIAGNOSTIC STUDIES/LAB DATA: I reviewed her MRI scan which showed some white matter disease, but no acute infarct was visualized. She did not have a CTA because of her contrast allergy. Labs included an LDL of 106. Normal CMP. otherwise, TSH is 5.35. Hemoglobin A1c was 5.6. Normal CBC. PTT 40.8. INR 1.45. UA was negative. Digoxin 0.8. IMPRESSION: Cat Brian had a hemisensory deficit, although this could have been from her atrial fibrillation since it is hemisensory deficit, this may be small- vessel ischemic disease secondary to her cardiovascular risk factors. I would make sure that her anticoagulation is therapeutic as the hospitalists are doing. I would also, as an outpatient, recommend that her blood pressure gets monitored and to treat hypertension aggressively because this may be a contributing factor to her small-vessel ischemic disease and possibly to the stroke. She has hyperlipidemia in somebody who has had a stroke, so she has been started on statin appropriately. I am also recommending that she have a carotid ultrasound. I think it is unlikely that she has significant carotid stenosis causing the stroke, but it would be reasonable to check. If she has severe stenosis, then we would need to address that. Further, this could be done either inpatient or outpatient in the near future. There was no history of snoring or potential sleep apnea, so this does not need to be addressed. Her hemoglobin A1c was normal, so this does not need to be addressed either. Thank you for sharing her case. [id number]/[facility] #: [id number] DAYNA
[2018-05-14] MEDS: Enoxaparin(*) 80 MG/0.8 ML SYR SUBCUT SCH ×2 (03:33→15:03)
[2018-05-14] MEDS: Levothyroxine TAB* 50 MCG TAB PO SCH (05:22)
[2018-05-14 09:22] LABS: INR 1.67 (0.77-1.02)
[2018-05-14] MEDS: hydrALAZINE TAB* 25 MG PO SCH ×3 (09:28→20:42)
[2018-05-14] MEDS: Digoxin TAB* 0.25 MG PO SCH (09:28)
[2018-05-14] MEDS: Metoprolol Succinate XL TAB* 50 MG PO SCH ×2 (09:29→20:42)
--- NOTE | 2018-05-14 11:06 | ECHO ---
Patient: BRYNO FERNANDEZ [facility] Rec#: [id number] : 1935 Date: 05/14/2018 Age: 82y Height: 165 cm / 65.0 in Weight: 79.4 kg / 175.0 lbs Sex: F BSA: 1.9 Room#: [facility] Admit Date#: 05/13/2018 Type: Inpatient Referring: Tona Paz DO Reading: Hailey Alegria MD Channel Sales Manager: Carmina Sharma RN RDCS CC: Grant Gay MD Transthoracic Echocardiogram Indication: TIA BP: 137/47 HR: 62 Rhythm: NSR with PVCs Findings History: A. fib, HTN, hypothyroidism Technical Comments: The study quality is fair. Completed at 0930. Left Ventricle: The left ventricular chamber size is normal. Mild to moderate concentric left ventricular hypertrophy is observed. Global left ventricular wall motion and contractility are within normal limits. There is normal left ventricular systolic function. The estimated ejection fraction is 60-65%. The left ventricular diastolic filling pattern is consistent with pseudonormalization. The left ventricular diastolic filling pattern is consistent with elevated left ventricular end-diastolic pressure. Left Atrium: The left atrium is slightly dilated. Right Ventricle: The right ventricular chamber size and systolic function are within normal limits. Right Atrium: The right atrium is mildly dilated. The bubble study is negative. A patent foramen ovale is not demonstrated with color Doppler and agitated contrast. Aortic Valve: The aortic valve is trileaflet. The aortic valve leaflets are moderately thickened. Systolic excursion of the aortic valve cusps is reduced. There is mild to moderate aortic regurgitation. There is moderate aortic stenosis. The mean gradient of the aortic valve is 23 mmHg. The peak instantaneous gradient of the aortic valve is 38 mmHg. The aortic valve area, by VTI's, is calculated at 1 cm2. The highest aortic valve velocity was obtained with the standard probe from the A5C view. The measured aortic regurgitation pressure half-time is 454 msec. No reversal of flow in the descending aorta. Mitral Valve: There is mitral annular calcification. The mitral valve leaflets are mildly thickened. There is mild to moderate mitral regurgitation. There is no evidence of mitral stenosis. Tricuspid Valve: The tricuspid valve leaflets are normal. There is mild to moderate tricuspid regurgitation. The right ventricular systolic pressure is estimated at 49 mmHg. There is evidence of moderate pulmonary hypertension. There is no tricuspid stenosis. Pulmonic Valve: The pulmonic valve appears normal. There is a trace pulmonic regurgitation. There is no pulmonic stenosis. Pericardium: There is no significant pericardial effusion. Aorta: The ascending aorta is not well visualized. There is no dilatation of the aortic arch. There is no dilation of the aortic root. Pulmonary Artery: The main pulmonary artery is not well visualized. Venous: The inferior vena cava appears normal in size. There is an approximate 50% respiratory change in the inferior vena cava dimension. Contrast: Normal saline was used as contrast for the bubble study. Images 105 and 106. Conclusions Mild to moderate concentric left ventricular hypertrophy is observed. Global left ventricular wall motion and contractility are within normal limits. The estimated ejection fraction is 60-65%. The left ventricular diastolic filling pattern is consistent with pseudonormalization, elevated LVEDP. The right ventricular chamber size and systolic function are within normal limits. The bubble study is negative, no evidence of intracardiac shunting on 2D, color Doppler and bubble study. There is calcific aortic sclerosis with mild to moderate aortic regurgitation. There is moderate aortic stenosis. -The mean gradient of the aortic valve is 23 mmHg. -The aortic valve area, by VTI's, is calculated at 1 cm2. The mitral valve leaflets are mildly thickened. There is mild to moderate mitral regurgitation. There is mild to moderate tricuspid regurgitation. There is evidence of moderate pulmonary hypertension estimated at 49 mmHg. No prior study to compare. Measurements Name Value Normal Range RVIDd (AP) 2D 3.5 cm (0.9 - 2.6) RVDdMajor (2D) 3.1 cm (2.2 - 4.4) RAd ISD 4CH 5.2 cm (3.4 - 4.9) RA (A4C)W 3.7 cm (2.9 - 4.6) IVSd (2D) 1.4 cm (0.6 - 1) LVPWd (2D) 1.1 cm (0.6 - 1) LVIDd (2D) 4 cm (3.6 - 5.4) LVIDs (2D) 2.4 cm - LV FS (2D) 40 % (25 - 45) Aortic Annulus 1.8 cm (1.4 - 2.6) Ao root diameter (2D) 3.1 cm (2.1 - 3.5) Aortic arch 2.4 cm (1.8 - 3.4) LA dimension (AP) 2D 3.9 cm (2.3 - 3.8) LAd ISD 4CH 4.9 cm (2.9 - 5.3) LA ISD 4CH W 4.1 cm (2.5 - 4.5) Name Value Normal Range LA ESV BP (A/L) index 29.4 ml/m2 - Name Value Normal Range MV E-wave Vmax 1.4 m/sec - MV deceleration time 254 msec - MV A-wave Vmax 1.1 m/sec - MV E:A ratio 1.2 ratio - LV septal e' Vmax 0.06 m/sec - LV lateral e' Vmax 0.08 m/sec - LV E:e' septal ratio 23.3 ratio - LV E:e' lateral ratio 17.5 ratio - Name Value Normal Range AV Vmax 3.1 m/sec - AV VTI 87.2 cm - AV peak gradient 38 mmHg - AV mean gradient 23 mmHg - LVOT diameter 2 cm - LVOT Vmax 1 m/sec - LVOT VTI 28.8 cm - LVOT peak gradient 4 mmHg - LVOT mean gradient 3 mmHg - DOI (VTI) 0.33 ratio - DOI (Vmax) 0.32 ratio - AILE (continuity Vmax) 1 cm2 - ALIE (continuity VTI) 1 cm2 - AR PHT 454 msec - PARK Vmax 0.68 m/sec - Name Value Normal Range TR Vmax 3.2 m/sec - TR peak gradient 41 mmHg - RAP 8 mmHg - RVSP 49 mmHg - IVC diameter 1.7 cm - Name Value Normal Range PV Vmax 0.96 m/sec -
[2018-05-14] MEDS: Warfarin TAB(*) 5 MG PO SCH (16:44)
--- NOTE | 2018-05-14 17:29 | PN ---
Subjective Date of Service: 05/14/18 Interval History: HOSPITALIST PROGRESS NOTE Patient seen and examined at bedside. Care reviewed and d/w Karmen Ulrich RN. She offers no new complaints today. Right sided tingling persists, but less intense than on admission. Family History: Unchanged from Admission Social History: Unchanged from Admission Past Medical History: Unchanged from Admission Objective Active Medications: Acetaminophen (Tylenol Tab*) 650 mg PO Q4H PRN PRN Reason: PAIN Atorvastatin Calcium (Lipitor*) 40 mg PO 2100 [facility] Last Admin: 05/13/18 20:47 Dose: 40 mg Digoxin (Lanoxin Tab*) 0.25 mg PO QAM [facility] Last Admin: 05/14/18 09:28 Dose: 0.25 mg Enoxaparin Sodium (Lovenox(*)) 80 mg SUBCUT Q12H [facility] Last Admin: 05/14/18 15:03 Dose: 80 mg Hydralazine HCl (Apresoline Tab*) 25 mg PO TID [facility] Last Admin: 05/14/18 15:03 Dose: 25 mg Levothyroxine Sodium (Synthroid Tab*) 50 mcg PO 0600 [facility] Last Admin: 05/14/18 05:22 Dose: 50 mcg Metoprolol Succinate (Toprol Xl Tab*) 50 mg PO BID [facility] Last Admin: 05/14/18 09:29 Dose: 50 mg Warfarin Sodium (Coumadin Tab(*)) 5 mg PO SuTuThSa@1700 [facility]; Protocol Last Admin: 05/14/18 16:44 Dose: 5 mg Warfarin Sodium (Coumadin Tab(*)) 7.5 mg PO MoWeFr@1700 [facility]; Protocol Vital Signs - 8 hr 05/14/18 05/14/18 05/14/18 09:28 10:44 15:11 Temperature 98.1 F 97.3 F Pulse Rate 58 64 56 Respiratory 16 16 Rate Blood Pressure 135/51 140/55 (mmHg) O2 Sat by Pulse 97 96 Oximetry Oxygen Devices in Use Now: None Appearance: Pleasant elderly lady sitting up in bed in NAD. 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 Her INR is subtherapeutic in the setting of Warfarin being held for left hand surgery. - Patient Problems (1) CVA (cerebral vascular accident) Comment: - Neurology input appreciated - likely cardioembolic in the setting of Afib and subtherapeutic INR, but could also be small vessel ischemic disease. - MRI brain was negative, but she likely had a very small stroke as she has isolated sensory deficit. - This happened in the setting of subtherapeutic INR - continue bridigng with Lovenox until INR is therapeutic. - Echo reviewed - normal EF, moderate , negative bubble study. - LDL is 106 - continue statin. - Awaiting carotid US. (2) HTN (hypertension) Comment: - Controlled - continue Hydralazine and Metoprolol. (3) Afib Comment: - In NSR - continue digoxin and metoprolol. - Continue Lovenox/Warfarin. (4) Hypothyroidism Comment: - TSH 5.35 - continue Levothyroxine. (5) DVT prophylaxis Comment: - Lovenox/Warfarin. (6) Full code status
[2018-05-14] MEDS: Atorvastatin* 40 MG TAB PO SCH (20:42)
[2018-05-14] MEDS: Acetaminophen TAB* 325 MG PO PRN (23:33)
[2018-05-15] MEDS: Enoxaparin(*) 80 MG/0.8 ML SYR SUBCUT SCH (03:32)
[2018-05-15] MEDS: Acetaminophen TAB* 325 MG PO PRN (03:38)
[2018-05-15] MEDS: Levothyroxine TAB* 50 MCG TAB PO SCH (05:34)
[2018-05-15 06:12] LABS: INR 1.7 (0.77-1.02)
[2018-05-15] MEDS: Digoxin TAB* 0.25 MG PO SCH (08:57)
[2018-05-15] MEDS: hydrALAZINE TAB* 25 MG PO SCH (08:57)
[2018-05-15] MEDS: Metoprolol Succinate XL TAB* 50 MG PO SCH (08:57)
[2018-05-15 09:17] VITALS: BP 141/50
[2018-05-15] MEDS ORDERED: Warfarin TAB(*) 7.5 MG PO SCH (17:00)
--- NOTE | 2018-05-15 21:32 | DS ---
CC: Dr. Berg; Dr. Juarez; Dr. Mejias * DISCHARGE SUMMARY: DATE OF ADMISSION: 05/13/18 DATE OF DISCHARGE: 05/15/18 PRIMARY CARE PROVIDER: Dr. Berg. Covering physician: "Dr. Juarez." CONSULTING NEUROLOGIST: Dr. Mejias. DISCHARGE DIAGNOSES: 1. Ischemic cerebrovascular accident, likely embolic. 2. Subtherapeutic INR. SECONDARY DIAGNOSES: 1. Hypertension. 2. Atrial fibrillation. 3. Hypothyroidism. MEDICATION LIST: 1. Digoxin 0.25 mg p.o. daily. 2. Hydralazine 25 mg p.o. t.i.d. 3. Levothyroxine 50 mcg p.o. in the morning. 4. Metoprolol succinate 50 mg p.o. b.i.d. 5. PreserVision AREDS 2 one capsule p.o. b.i.d. 6. Warfarin 4 mg p.o. on Sundays, Tuesdays, , and Saturdays and 7.5 mg p.o. on Mondays, Wednesdays, and Fridays. New Medications: 1. Lovenox 80 mg subcutaneously q.12 hours until INR greater than 2. 2. Atorvastatin 40 mg p.o. at bedtime. HOSPITAL COURSE: Ms. Brian is an 82-year-old lady with past medical history as stated above, who presented to the emergency room on 05/13/18 with complaints of right-sided tingling sensation. The patient has a history of AFib and had her Coumadin held in preparation for left wrist surgery. Her warfarin was resumed, but her INR was 2, subtherapeutic on admission. For more details about her presentation, I refer you to her history and physical. In the emergency room, the patient had a CT of the brain that showed no acute intracranial abnormality. She had a chest x-ray that showed no active cardiopulmonary disease. She was admitted under the impression of right-sided paresthesia that could be secondary to TIA versus CVA. She was started on full-dose Lovenox as her INR is subtherapeutic and her LDL was 106, so atorvastatin was added. The patient had an MRI of the brain that showed diffuse involutional change with chronic small vessel ischemic changes, no restricted diffusion to suggest acute infarct. The patient was seen in consultation by Neurology (Dr. Mejias), and his impression was that the patient had a hemisensory deficit and, although this could have been from her atrial fibrillation, this could also be small vessel ischemic disease secondary to her cardiovascular risk factors. He recommended making sure her anticoagulation is therapeutic, blood pressure is well controlled, and since the patient is allergic to DYE, he also recommended a carotid ultrasound that was performed and showed no significant carotid stenosis. A transthoracic echocardiogram was performed and this showed the ejection fraction of 60% to 65% with moderate aortic stenosis. Bubble study was negative. The patient had improvement of her symptoms, but she still has some sensory deficit especially on her right arm. There are no motor deficits. The patient is medically stable. She will be discharged home today and she will have an INR check tomorrow, and I talked to Dr. Juarez. She will follow up with the result since Dr. Berg is not in the office at this point. I believe that by mid week the patient's INR will be therapeutic and she would no longer require Lovenox. The patient was educted now that she had a stroke, she will be requiring bridging for procedures. Another conversation that can be had as outpatient is maybe she could be transitioned from warfarin to one of the new oral anticoagulants. She states her was transitioned from warfarin to one of the new agents and she would like to consider it. I believe with her age and comorbidities, she may be a good candidate for Eliquis. The patient received education about what symptoms would prompt her return to the emergency room. She is medically stable for discharge at this time. PHYSICAL EXAMINATION: Vital Signs: Temperature 98.0, heart rate is 61, respiratory rate 16, oxygen saturation 97% on room air, blood pressure is 141/ 50. General: The patient is a pleasant elderly lady, sitting up on bed, in no acute distress. CVS: S1 and S2. Regular rate and rhythm. Chest: Breath sounds bilaterally with no added sounds. Abdomen: Soft. Bowel sounds are present. Neuro: She is alert and oriented x3. She is able to move all 4 extremities and there is decreased sensation in her right arm, especially in the forearm. DIET: Heart-healthy diet. ACTIVITIES: As tolerated. DISPOSITION: Home. STATUS WHILE IN THE HOSPITAL: Observation. Please keep in mind this is a summarized version of this patient's hospital stay. If you need more information, please feel free to call me at [phone] or please obtain the full medical records. TIME SPENT: Approximately 45 minutes were spent to complete this discharge. [id number]/[facility] #: [id number] DAYNA
== END 2018-05-15 10:41 | disposition home or self-care (01) ==
LOC: ED 00:16 → MEDTELE 02:19
PROVIDERS: ADMIT Hospitalist; ATTEND Internal Medicine
DX: I63.9 Cerebral infarction, unspecified (principal); R79.1 Abnormal coagulation profile; J38.3 Other diseases of vocal cords; I10 Essential (primary) hypertension; I48.91 Unspecified atrial fibrillation; E03.9 Hypothyroidism, unspecified; Z79.01 Long term (current) use of anticoagulants; Z79.82 Long term (current) use of aspirin
CPT/HCPCS: 36415; 70450; 70551; 71045; 80053; 80061; 80162; 81003; 83036; 83605; 84443; 84484; 85025; 85610; 85730; 93005; 93306; 93880; 96372; 99283; A9270-GY; G0378; J1650

== ENCOUNTER 2018-06-14 12:41 | Observation (INO) | payer MEDICARE ==
--- NOTE | 2018-06-14 13:09 | ED ---
Neurological HPI - HPI Summary HPI Summary: An 82 y/o female presents to [facility] with a chief complaint right sided tingling since 09:30 today. She claims that both her right arm and right leg tingle. She also reports high blood pressure and heart rate. She claims that she has had similar symptoms on 06/11/18. She denies any numbness. At triage she rated her pain as a 0/10 in severity. She was also here in April 2018 and reports that she had a mini stroke. She is currently on blood thinners. - History of Current Complaint Chief Complaint: EDNeurologicalDeficit Stated Complaint: RAPID HB/HIGH BLOOD PRESSURE PER PT Time Seen by Provider: 06/14/18 13:02 Hx Obtained From: Patient Onset/Duration: Sudden Onset, Started hours ago, Still Present Timing: Intermittent Episodes Lasting: - 2 episodes lasting days Onset Severity: Mild Current Severity: Mild Neurological Deficit Location: Generalized - right sided tingling Pain Intensity: 0 Pain Scale Used: 0-10 Numeric Character: Other: - tingling, no numbness Aggravating: Nothing Alleviating: Nothing Associated Signs and Symptoms: Negative: Numbness - Additional Pertinent History Primary Care Physician: [id number] - Allergy/Home Medications Allergies/Adverse Reactions: Allergies Allergy/AdvReac Type Severity Reaction Status Date / Time NSAIDS (Non-Steroidal Allergy Severe Anaphylatic Verified 06/14/18 12:48 Anti-Inflamma Shock aspirin Allergy Anaphylatic Verified 06/14/18 12:48 Shock Iodinated Contrast- Oral and Allergy Blisters Verified 06/14/18 12:48 IV Dye iv contrast Allergy Severe Blisters Uncoded 06/14/18 12:48 Home Medications: Home Medications Metoprolol Succinate XL TAB* [Toprol XL TAB*] 50 mg PO BID 06/14/18 [History Confirmed 06/14/18] PMH/Surg Hx/FS Hx/Imm Hx Endocrine/Hematology History: Reports: Hx Thyroid Disease - ON MEDS PT. STATES CONTROLLED Denies: Hx Diabetes Cardiovascular History: Reports: Hx Hypertension - ON MEDS PT. STATES CONTROLLED , Hx Valvular Heart Disease - LEAKY AORTA, Other Cardiovascular Problems/ Disorders - paroxysmal a-fib Denies: Hx Pacemaker/ICD Respiratory History: Denies: Hx Asthma, Hx Chronic Obstructive Pulmonary Disease (COPD) GI History: Reports: Hx Gastroesophageal Reflux Disease - ON MEDS Denies: Hx Ulcer Musculoskeletal History: Reports: Hx Arthritis - bilateral knees and shoulders, Hx Bursitis Sensory History: Reports: Hx Cataracts - BILAT, Hx Contacts or Glasses - glasses Denies: Hx Hearing Aid Opthamlomology History: Reports: Hx Cataracts - BILAT, Hx Contacts or Glasses - glasses Psychiatric History: Denies: Hx Panic Disorder - Cancer History Hx Chemotherapy: No Hx Radiation Therapy: No - Surgical History Surgery Procedure, Year, and Place: hysterectomy, t&a, LEFT KNEE SCOPING 1999, LEFT VERISCOSE VEIN SURGERY 2016. LEFT CATARACT REMOVED 2017, right eye cataract removed right eye Hx Anesthesia Reactions: No - Immunization History Date of Tetanus Vaccine: UTD Date of Influenza Vaccine: UTD Infectious Disease History: No Infectious Disease History: Denies: Hx Hepatitis, Hx Human Immunodeficiency Virus (HIV), Traveled Outside the [place] in Last 30 Days - Family History Known Family History: Positive: Cardiac Disease - Social History Alcohol Use: None Substance Use Type: Reports: None Smoking Status (MU): Never Smoked Tobacco Review of Systems Negative: Fever Positive: Other - positive: elevated heart rate and BP Positive: Paresthesia. Negative: Numbness All Other Systems Reviewed And Are Negative: Yes Physical Exam - Summary Physical Exam Summary: Appearance: Well appearing, no pain distress Skin: warm, dry, reflects adequate perfusion Head/face: normal Eyes: EOMI, EVA ENT: normal Neck: supple, non-tender Respiratory: CTA, breath sounds present Cardiovascular: Irregularly irregular heart rate, pulses symmetrical Abdomen: non-tender, soft Musculoskeletal: normal, strength/ROM intact Neuro: normal, sensory motor intact, A&Ox3 Triage Information Reviewed: Yes Vital Signs On Initial Exam: Initial Vitals Temp Pulse Resp BP Pulse Ox 99.0 F 73 17 189/98 96 06/14/18 12:44 06/14/18 12:44 06/14/18 12:44 06/14/18 12:44 06/14/18 12:44 Vital Signs Reviewed: Yes - Chandrika Coma Scale Best Eye Response: 4 - Spontaneous Best Motor Response: 6 - Obeys Commands Best Verbal Response: 5 - Oriented Coma Scale Total: 15 Diagnostics - Vital Signs Vital Signs Temp Pulse Resp BP Pulse Ox 06/14/18 12:44 99.0 F 73 17 189/98 96 - Laboratory Result Diagrams: 06/14/18 13:38 06/14/18 13:38 Lab Statement: Any lab studies that have been ordered have been reviewed, and results considered in the medical decision making process. - Radiology CXR Radiology Interpretation Completed By: Radiologist Summary of Radiographic Findings: Stigmata of obstructive lung disease. No acute pulmonary or cardiac process evident. ED physician has reviewed this imaging report. - CT Brain CT Interpretation Completed By: Radiologist Summary of CT Findings: Chronic ischemic White matter change. No intracranial mass or hemorrhage is. noted. ED physician has reviewed this imaging report. - EKG 12:53 Cardiac Rate: NL - 72 bpm EKG Rhythm: Sinus Rhythm Summary of EKG Findings: Normal sinus rhythm at 72 bpm, no acute changes. NIH Scale - NIH Scale Level of Consciousness: Alert/Keenly Responsive Ask Patient the Month and His/Her Age: Both Correct Ask Pt to Open/Close Eyes and Equal Opportunity Officer/Release Non-Paretic Hand: Both Correctly Best Gaze (Only Horizontal Eye Movement): Normal Visual Field Testing: No Visual Loss Facial Paresis-Pt to Smile & Close Eyes or Grimace Symmetry: Normal/Symmetrical Motor Function - Right Arm: No Drift-Holds 10 Seconds Motor Function - Left Arm: No Drift-Holds 10 Seconds Motor Function - Right Leg: No Drift-Holds 10 Seconds Motor Function - Left Leg: No Drift-Holds 10 Seconds Limb Ataxia-Must be out of Proportion to Weakness Present: Absent Sensory (Use Pinprick to Test Arms/Legs/Trunk/Face): Normal Best Language (Describe Picture, Name Items): No Aphasia Dysarthria (Read Several Words): Normal Extinction and Inattention: No Abnormality Total Score: 0 Re-Evaluation - Re-Evaluation First Eval Re-Evaluation Time: 14:40 Change: Unchanged Comment: Discussed results and plan for admission Course/Dx - Course Course Of Treatment: An 82 y/o female presents to [facility] with a chief complaint right sided tingling since 09:30 today. She claims that both her right arm and right leg tingle. She also reports high blood pressure and heart rate. The physical exam revealed an irrregularly irregular heartrate. CXR impression: Stigmata of obstructive lung disease. No acute pulmonary or cardiac process evident. Brain CT impression: Chronic ischemic White matter change. No intracranial mass or hemorrhage is. noted. EKG at 12:53 showed Normal sinus rhythm at 72 bpm, no acute changes. Bloodwork obtained. Case discussed with Dr. Caballes, hospitalist, who accepted the patient for admission. The patient is agreeable with this plan. - Differential Dx Differential Diagnoses Neuro: Positive: Cerebrovascular Accident, Transient Ischemic Attack, Other - palpitations - Diagnoses Provider Diagnoses: Palpitations, Elevated troponin, Atrial fibrillation, Chest pain, rule out acute myocardial infarction, TIA (transient ischemic attack) - Physician Notifications Discussed Care Of Patient With: Edi Spain Time Discussed With Above Provider: 14:34 Instructed by Provider To: Admit As Inpatient Discharge - Sign-Out/Discharge Documenting (check all that apply): Patient Departure - admit Patient Received Moderate/Deep Sedation with Procedure: No - Discharge Plan Condition: Fair Disposition: ADMITTED TO [facility] - Billing Disposition and Condition Condition: FAIR Disposition: Admitted to [facility] - Attestation Statements Document Initiated by [place]ye: Yes Documenting Scribe: Kenneth Herring Provider For Whom Scribe is Documenting (Include Credential): Maikol Cohen MD Scribe Attestation: I, Kenneth Herring, scribed for Maikol Cohen MD on 06/14/18 at 1653. Scribe Documentation Reviewed: Yes Provider Attestation: The documentation as recorded by the Kenneth askew accurately reflects the service I personally performed and the decisions made by me, Maikol Cohen MD Status of Scribe Document: Viewed Consult Consult: At 15:[address] Tolbert, neuro, and requested to consult the patient.
--- OUTSIDE RECORDS SUMMARY | 2018-06-14 13:17 | XMS REPORT | Continuity of Care Document ---
:1935 External Reference #:[id number] Author Name Irene Merino Care Team Providers Name Role Phone Cat Berg M.D. Primary Care Physician Unavailable Payers Date Identification Numbers Payment Provider Subscriber Policy Number: [id number] [facility] Medicare Solutions Cat Brian Group Number: [id number] [address] [address] PayID: [id number] [place] [address] Expires: 2016 Policy Number: [id number] [facility] Ppo Che Brian Group Number: [id number] [address] [address] Group Name: DEVORA Dhaliwal [id number] PayID: [id number] Advance Directives Type Date Description Status Comment [...] 09/22/2016 Onset: 08/25/2016 Dyspnea Edgar Storm M.D., FACC, FASNC Inactive Inactive: 09/22/2016 Family History Date Family Member(s) Observation Comments Father Heart Disease : (age 62 Father due to MT Years) Mother Heart Disease age 82yrs Siblings 4 First Brother due to Heart () Disease First Sister Alzheimer's Disease First Sister due to Alzheimer's () Disease Second Sister Influenza Second Sister due to Influenza () Social History Type Date Description Comments Sex Unknown Marital Status Lives With Occupation Retired Tobacco Use Start: Unknown Never Smoked Cigarettes Smoking Status Reviewed: 06/13/18 Never Smoked Cigarettes ETOH Use Denies alcohol use Tobacco Use Start: Unknown Patient has never smoked Recreational Drug Use Denies Drug Use Exercise Type/Frequency Does not exercise Allergies, Adverse Reactions, Alerts Date Description Reaction Status Severity Comments 08/13/2016 NSAIDs Anaphylaxis Active Severe 08/13/2016 Iodinated Diagnostic Agents Active Medications Medication Date Status Form Strength Qnty SIG Indications Ordering Provider Hydroxyzine 05/23 Active Tablets 50mg 30tab half or 1 tab Cat HCL /2019 s by mouth at Berg, bedtime as MD needed insomnia Metoprolol Active Tablets ER 50mg 180ta 1 tab by mouth Laurence Succinate ER /0000 24HR bs twice a day MCKINLEY Morris Coumadin Active Tablets 5mg 100ta 1.5 tab 2/wk Cat / bs and 1 tab 5/wk Berg, by mouth every MD night or as directed Digoxin Active Tablets 250mcg 90tab 1 by mouth Cat /0000 s every day MD Morena Synthroid Active Tablets 50mcg 90tab 1 by mouth Cat /0000 s every day MD Morena Hydralazine Active Tablets 25mg 270ta take 1 tablet Cat HCL / bs by mouth three Berg, times daily Preservision Active Capsules Areds 2 Daily Unknown Areds 2 /0000 Glucosamine Active Capsules 1500Com 1 by mouth Unknown Chondroitin /0000 once a day 1500 Complex Probiotic Active Capsules 1 by mouth Unknown Acidophilus /0000 every day Simbrinza Active Suspension 1-0.2% one drop in Unknown /0000 left eye three time a day Enoxaparin Active Solution 80mg/0.8M 80mg every 12 Unknown Sodium /0000 L hours until Inr greater than 2 Atorvastatin Active Tablets 40mg 90tab 1 by mouth Cat Calcium /0000 s every day at Berg, bedtime Tramadol HCL 05/01 Hx Tablets 50mg 30tab 1 tablet by Julio s mouth every 6 F - hours as Liu 05/22 needed pain Shingrix 02/27 Hx Suspension 50mcg/0.5 2unit 0.5 Grant Rec ML s milliliters Toña Gay, - intramuscular MSheba,FAC 03/22 now and 2- months later repeat Omeprazole 07/[address] 20mg 30cap 1 by mouth K21.9 s 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, - 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 02/05 Omeprazole 01/[address] 20mg 30cap 1 by mouth s every day for Morris, - 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 Technetium TC 09/06/ Administered Injection Edgar Dennis 99M Tetrofosmin, 2017 Emeterio, Per Unit Dose Up M.D., To [address] [facility] Immunizations CPT Code Status Date Vaccine Lot # [id number] Given 02/27/2018 Influenza Virus Vaccine, Quadrivalent, Split, [id number] Preservative Free Given 02/27/2018 Pneumococcal Conjugate Vaccine 13 Valent For [id number] Intramuscular Use Given 01/10/2017 Influenza Virus Vaccine, Quadrivalent, Split, [id number] Preservative Free [id number] Given 11/05/2014 Pneumonia Vaccine [id number] Given 01/30/2005 Pneumonia Vaccine Vital Signs Date Vital Result Comment 06/13/2018 10:14am Height 65 inches 5'5" Weight 180.00 lb Patient stated Heart Rate 60 /min BP Systolic 140 mmHg BP Diastolic 60 mmHg Respiratory Rate 14 /min Body Temperature 97.8 F Pain Level 2 BMI (Body Mass Index) 30.0 kg/m2 05/22/2018 1:23pm Height 65 inches 5'5" Weight 185.12 lb Heart Rate 58 /min BP Systolic 142 mmHg BP Diastolic 79 mmHg Body Temperature 97.7 F O2 % BldC Oximetry 97 % BMI (Body Mass Index) 30.8 kg/m2 05/16/2018 1:39pm Height 65 inches 5'5" Heart Rate 54 /min BP Systolic 148 mmHg BP Diastolic 80 mmHg Respiratory Rate 18 /min Body Temperature 98.1 F Pain Level 2 05/08/2018 3:34pm Height 65 inches 5'5" Heart [...] Result H/L Range Note Protime W/ Inr 06/06/2018 Revenue Cycle Manager In House Prothrombin Time 24.8 Inr 2,0 Protime W/ Inr 05/22/2018 Revenue Cycle Manager In House Prothrombin Time 38.2 Inr 3.1 Protime W/ Inr 05/16/2018 Revenue Cycle Manager In House Prothrombin Time 24.2 Inr 2.0 Laboratory test 05/13/2018 [facility] Hemoglobin A1c 5.6 % N 4.0-5.[address] (Glyco HGB) [place] [address] [phone] Urinalysis 05/13/2018 [facility] Urine Color Yellow Profile [address] [place], [place] [id number] [phone] Urine Appearance Cloudy Urine Specific [place] 1.016 N 1.010-1.030 Urine pH 7.0 N 5-9 Urine Urobilinogen Negative Negative Urine Ketones Negative Negative Urine Protein Negative Negative Urine Leukocytes Negative Negative Urine Blood Negative Negative * * Abnormal Negative 2 Urine Nitrite Negative Negative Urine Bilirubin Negative Negative Urine Glucose Negative Negative Laboratory test 05/13/2018 [facility] Partial 40.8 High 26.0- 36.[address] [address] PTT [phone] Lactic Acid 0.9 mmol/L N 0.5-2.0 3 TSH (Thyroid Stim Horm) 5.35 mcIU/mL N 0.34-5.60 Digoxin 0.8 ng/ml N 0.8-2.0 Inr/Protime 05/13/2018 [facility] Inr 1.45 High 0.77-1.[address] [place] [address] [phone] Laboratory test 05/13/2018 [facility] Troponin-I (TnI) 0.01 < 0.04 [address] ng/[place] [address] [phone] Lipid Profile 05/13/2018 [facility] Triglycerides 140 5 (Trig/Chol/HDL) [address] mg/[place] [address] [phone] Cholesterol 170 mg/dL 6 HDL Cholesterol 36.3 mg/dL 7 LDL Cholesterol 106 mg/dL 8 Comp Metabolic Panel 05/13/2018 [facility] Sodium 138 mmol/L N 135-[address] [place] [address] [phone] Potassium 4.1 mmol/L N 3.5-5.0 Chloride 102 mmol/L N 101-111 Co2 Carbon Dioxide 29 mmol/L N 22-32 Anion Gap 7 mmol/L N 2-11 Glucose 112 mg/dL High 70-100 Blood Urea Nitrogen 17 mg/dL N 6-24 Creatinine 0.89 mg/dL N 0.51-0.95 BUN/Creatinine Ratio 19.1 N 8-20 Calcium 9.5 mg/dL N 8.6-10.3 Total Protein 7.4 g/dL N 6.4-8.9 Albumin 4.3 g/dL N 3.2-5.2 Globulin 3.1 g/dL N 2-4 Albumin/Globulin Ratio 1.4 N 1-3 Total Bilirubin 0.70 mg/dL N 0.2-1.0 Alkaline Phosphatase 67 U/L N 34-104 Alt 19 U/L N 7-52 Ast 28 U/L N 13-39 Egfr Non- 60.4 >60 Egfr 73.1 >60 9 CBC Auto Diff 05/13/2018 [facility] White Blood 9.0 10^3/uL N 3.5-10.[address] [place] [address] [phone] Red Blood Count 4.34 10^6/uL N 4.00-5.40 Hemoglobin 13.5 g/dL N 12.0-16.0 Hematocrit 41 % N 35-47 Mean Corpuscular Volume 94 fL N 80-97 Mean Corpuscular Hemoglobin 31 pg N 27-31 Mean Corpuscular HGB Conc 33 g/dL N 31-36 Red Cell Distribution Width 14 % N 10.5-15 Platelet Count 274 10^3/uL N 150-450 Mean Platelet Volume 8.2 fL N 7.4-10.4 Abs Neutrophils 5.1 10^3/uL N 1.5-7.7 Abs Lymphocytes 2.9 10^3/uL N 1.0-4.8 Abs Monocytes 0.8 10^3/uL N 0-0.8 Abs Eosinophils 0.1 10^3/uL N 0-0.6 Abs Basophils 0.1 10^3/uL N 0-0.2 Abs Nucleated RBC 0 10^3/uL Granulocyte % 56.6 % Lymphocyte % 31.8 % Monocyte % 8.8 % Eosinophil % 1.5 % Basophil % 1.3 % Nucleated Red Blood Cells % 0.1 Protime W/ Inr 05/11/2018 [employer] In House Prothrombin Time 16.9 Inr 1.4 Protime W/ Inr 05/04/2018 Revenue Cycle Manager In House Prothrombin Time 18.6 Inr 1.5 Laboratory test 05/01/2018 [facility] Surgical SEE RESULT [address] [place] [address] [phone] Protime W/ Inr 04/26/2018 [employer] In House Prothrombin Time 28.0 Inr 2.3 Order 04/03/2018 Revenue [employer] Manager In-House EKG <pending> Protime W/ Inr 03/30/2018 Revenue Cycle Manager In House Prothrombin Time 23.7 Inr 1.9 Protime W/ Inr 02/27/2018 Revenue Cycle Manager In House Prothrombin Time 23.9 Inr 2.0 Protime W/ Inr 02/20/2018 Revenue Cycle Manager In House Prothrombin Time 20.6 Inr 1.7 Protime W/ Inr 02/13/2018 Revenue Cycle Manager In House Prothrombin Time 22.9 Inr 1.9 Basic Metabolic Panel 02/02/2018 [facility] Sodium 140 mmol/L N 135-[address] [place] [address] [phone] Potassium 4.8 mmol/L N 3.5-5.0 Chloride 104 mmol/L N 101-111 Co2 Carbon Dioxide 32 mmol/L N 22-32 Anion Gap 4 mmol/L N 2-11 Glucose 80 mg/dL N 70-100 Blood Urea Nitrogen 16 mg/dL N 6-24 Creatinine 0.83 mg/dL N 0.51-0.95 BUN/Creatinine Ratio 19.3 N 8-20 Calcium 9.5 mg/dL N 8.6-10.3 Egfr Non- 65.5 >60 Egfr 79.2 >60 11 CBC Auto Diff 02/02/2018 [facility] White Blood 7.8 10^3/uL N 3.5-10.[address] [place] [address] [phone] Red Blood Count 4.36 10^6/uL N 4.00-5.40 [...] Blood Cells % 0.1 Laboratory test 02/02/2018 [facility] Digoxin 1.7 ng/ml N 0.8- 2.[address] [place] [address] [phone] Protime W/ Inr 02/02/2018 Revenue [employer] In House Prothrombin Time 21.8 Inr 1.8 Protime W/ Inr 01/06/2018 Revenue Cycle Manager In House Prothrombin Time 23.9 Inr 2.0 Protime W/ Inr 11/29/2017 Revenue Cycle Manager In House Prothrombin Time 30.7 Inr 2.5 Protime W/ Inr 11/01/2017 Revenue Cycle Manager In House Prothrombin Time 29.4 Inr 2.4 Protime W/ Inr 10/04/2017 Revenue Cycle Manager In House Prothrombin Time 36.6 Inr 3.0 Protime W/ Inr 09/26/2017 Revenue Cycle Manager In House Prothrombin Time 39.0 Inr 3.2 Protime W/ Inr 09/09/2017 Revenue Cycle Manager In House Prothrombin Time 23.2 Inr 1.9 Protime W/ Inr 08/31/2017 Revenue Cycle Manager In House Prothrombin Time 16.3 Inr 1.3 Laboratory 08/31/2017 [facility] TSH (Thyroid Stim 3.40 N 0.34 -5.60 12 test finding [address] Horm) mcIU/[place] [address] [phone] Lipid Profile 08/31/2017 [facility] Triglycerides 208 mg/dL 13 (Trig/Chol/HDL [address] ) [place] [address] [phone] Cholesterol 206 mg/dL 14 HDL Cholesterol 33.6 mg/dL 15 LDL Cholesterol 131 mg/dL 16 Laboratory 08/31/2017 [facility] Digoxin 0.7 ng/ml Low 0.8- 2.0 17 test finding [address] [place] [address] [phone] Inr/Protime 08/31/2017 [facility] Inr 2.30 High 0.77-1.[address] [place] [address] [phone] Inr/Protime 08/02/2017 [facility] Inr 2.49 High 0.77-1.02 [address] [place] [address] [phone] Protime W/ Inr 07/11/2017 Revenue [employer] [facility] In House Prothrombin 30.8 Time Inr 2.5 Protime W/ Inr 06/20/2017 Other Rendering Inr 2.1 Protime W/ Inr 05/18/2017 Other Rendering Inr 2.6 Protime W/ Inr 04/21/2017 Other Rendering Inr 2.4 Protime W/ Inr 03/30/2017 Other Rendering Inr 2.4 Protime W/ Inr 03/23/2017 Other Rendering Inr 3.3 Protime W/ Inr 02/17/2017 Revenue Cycle Manager In House Prothrombin Time 27.4 Inr 2.2 Protime W/ Inr 02/03/2017 Revenue Cycle Manager In House Prothrombin Time 19.3 Inr 1.6 Protime W/ Inr 01/18/2017 Revenue Cycle Manager In House Prothrombin Time 28.7 Inr 2.3 Comp Metabolic Panel 01/10/2017 [facility] Sodium 138 mmol/L N 133-[address] [place] [address] [phone] Potassium 4.7 mmol/L N 3.5-5.0 Chloride 103 [...] 66.6 N >60 Egfr 85.6 N >60 18 CBC Auto Diff 01/10/2017 [facility] White Blood 6.9 10^3/uL N 3.5-10.[address] [place] [address] [phone] Red Blood Count 4.46 10^6/uL N 4.0-5.4 [...] Cells % 0 N Laboratory test 01/10/2017 [facility] Lipase 24 U/L N 11.0- 82.[address] [place] [address] [phone] Inr/Protime 01/10/2017 [facility] Inr 3.50 High 0.89-1.[address] [place] [address] [phone] Protime W/ Inr 12/20/2016 Revenue [employer] In House Prothrombin Time 35.3 Inr 2.9 Protime W/ Inr 12/03/2016 Revenue Cycle Manager In House Prothrombin Time 24.8 Inr 2.0 CBC Auto Diff 11/25/2016 [facility] White Blood 8.3 10^3/uL N 3.5-10.[address] [place] [address] [phone] Red Blood Count 4.32 10^6/uL N 4.0-5.4 [...] Blood Cells % 0 N Inr/Protime 11/25/2016 [facility] Inr 1.56 High 0.89-1.[address] [place] [address] [phone] Basic Metabolic 11/25/2016 [facility] Sodium 137 mmol/L N 133- [address] [place] [address] [phone] Potassium 4.3 mmol/L N 3.5-5.0 Chloride 104 mmol/L N 101-111 Co2 Carbon Dioxide 27 mmol/L N 22-32 Anion Gap 6 mmol/L N 2-11 Glucose 91 mg/dL N 70-100 Blood Urea Nitrogen 10 mg/dL N 6-24 Creatinine 0.76 mg/dL N 0.51-0.95 BUN/Creatinine Ratio 13.2 N 8-20 Calcium 9.1 mg/dL N 8.6-10.3 Egfr Non- 72.7 N >60 Egfr 93.5 N >60 19 CBC Auto Diff 11/10/2016 [facility] White Blood 7.7 10^3/uL N 3.5-10.[address] [place] [address] [phone] Red Blood Count 4.63 10^6/uL N 4.0-5.4 [...] Blood Cells % 0.2 N Inr/Protime 11/10/2016 [facility] Inr 2.22 High 0.89-1.11 [address] [place] [address] [phone] Comp Metabolic 11/10/2016 [facility] Sodium 137 mmol/L N 133- 145 Panel [address] [place] [address] [phone] Potassium 4.3 mmol/L N 3.5-5.0 Chloride 102 [...] 65.8 N >60 Egfr 84.6 N >60 20 Protime W/ Inr 10/25/2016 Revenue Cycle Manager In House Prothrombin Time 33.0 Inr 2.7 Basic Metabolic Panel 09/22/2016 [facility] Sodium 138 mmol/L N 133-145 [address] [place] [address] [phone] Potassium 4.5 mmol/L N 3.5-5.0 Chloride 103 mmol/L N 101-111 Co2 Carbon Dioxide 30 mmol/L N 22-32 Anion Gap 5 mmol/L N 2-11 Glucose 93 mg/dL N 70-100 Blood Urea Nitrogen 11 mg/dL N 6-24 Creatinine 0.83 mg/dL N 0.51-0.95 BUN/Creatinine Ratio 13.3 N 8-20 Calcium 9.4 mg/dL N 8.6-10.3 Egfr Non- 65.8 N >60 Egfr 84.6 N >60 21 Laboratory test 09/22/2016 [facility] TSH (Thyroid 2.88 mcIU/mL N 0.34-5.[address] Stim Horm) [place] [address] [phone] Free T4 (Free Thyroxine) 0.87 ng/dL N 0.61-1.12 Digoxin 1.1 ng/ml N 0.8-2.0 Inr/Protime 09/22/2016 [facility] Inr 2.41 High 0.89-1.[address] [place] [address] [phone] Laboratory test 09/22/2016 [facility] Erythrocyte Sed 29 mm/Hr N 0-[address] [place] [address] [phone] Inr/Protime 09/01/2016 [facility] Inr 2.38 High 0.89-1.[address] [place] [address] [phone] 1 Therapeutic target for the treatment of diabetes mellitus patients is <7% HBA1C, and in selective patients <6.0%. Please refer to [place] Diabetes Association diabetic care guidelines for further information. 2 *Ascorbic acid is present which may interfere with detection of blood. 3 [facility] Severe Sepsis and Septic Shock Management Bundle Measure requires all lactic acids initially measuring >2.0 mmol/L be repeated. 4 Troponin-I testing on Plasma Separator Tubes (PST) has a known false positive rate of 0.20-0.40%. All positive troponins reflex immediate secondary confirmatory testing. 5 Desirable: <150 Borderline High: 150-199 High: 200-499 Very High: >500 6 Desirable: <200 Borderline High: 200-239 High: >239 7 Low: <40 Desirable: 40-60 High: >60 8 Desirable: <100 Near Optimal: 100-129 Borderline High: 130-159 High: 160-189 Very High: >189 9 Because ethnic data is not always [...] 5 Kidney failure <15 (or dialysis) 10 SEE RESULT BELOW Name: JIMCAT : [address]: Candelario Lockett MD Acct: [id number] Unit: [id number] AGE: 82 Location: OR Re05/01/18 SEX: F Status: BARB MONTALVO SPEC: [id number] TAMIA: 05/01/18- [facility] DR: Candelario Lockett MD REQ: [id number] RECD: 05/01/18 STATUS: SOUT _ ORDERED: LEVEL [...] 1514 END OF REPORT DEPARTMENT OF PATHOLOGY, [address] [place] [address] Rickie Stein M.D. Director [facility] # [id number] 11 Because ethnic data is not always [...] 5 Kidney failure <15 (or dialysis) 12 FASTING 13 Desirable: <150 Borderline High: 150-199 High: 200-499 Very High: >500 14 Desirable: <200 Borderline High: 200-239 High: >239 15 Low: <40 Desirable: 40-60 High: >60 16 Desirable: <100 Near Optimal: 100-129 Borderline High: 130-159 High: 160-189 Very High: >189 17 FASTING 18 Because ethnic data is not always readily [...] 15-29 5 Kidney failure <15 (or dialysis) 19 Because ethnic data is not always readily [...] 15-29 5 Kidney failure <15 (or dialysis) 20 Because ethnic data is not always readily [...] 15-29 5 Kidney failure <15 (or dialysis) 21 Because ethnic data is not always readily [...] (or dialysis) Procedures Date Code Description Status 05/14/2018 35592 ECHO Transthorasic Realtime 2D W Doppler & Color Flow Completed Hosp 05/01/2018 42117 Arthrotomy Wrist With Synovectomy Completed 05/01/2018 12353 Arthrotomy Wrist With Synovectomy Completed 04/28/2018 04778 Injection Anesthetic Agent/Steroid Plantar Common Completed Digital Nerve 04/24/2018 [id number] Diabetic Retinal Eye Exam Completed 04/17/2018 63129 EKG Tracing & Interpretation Completed 04/10/2018 27565 ECHO Transthoracic, Real-Time 2D With Doppler And Completed Color Flow 04/10/2018 23523 ECHO Transthoracic, Real-Time 2D With Doppler And Completed Color Flow 04/03/2018 84964 EKG Tracing & Interpretation Completed 03/06/2018 [id number] Diabetic Retinal Eye Exam Completed 02/16/2018 [id number] Diabetic Retinal Eye Exam Completed 02/06/2018 04929 EKG Tracing & Interpretation Completed 02/22/2017 [id number] Mammogram Completed 11/12/2016 32132 EKG Tracing & Interpretation Completed 09/06/2016 18795 Stress Test Completed 09/06/2016 23889 Myocardial Perfusion Imaging Tomographic (Spect) Completed Multiple Studies 09/03/2016 24733 ECHO Transthoracic, Real-Time 2D With Doppler And Completed Color Flow 08/25/2016 49951 EKG Tracing & Interpretation Completed 12/26/2015 [id number] Mammogram Completed 12/19/2014 [id number] Mammogram Completed 12/24/2013 [id number] Mammogram Completed 12/21/2012 [id number] Mammogram Completed 12/24/2011 [id number] Mammogram Completed 02/11/2010 [id number] Mammogram Completed 08/25/2009 14588 Rad Exam; Pelvis Completed 08/25/2009 51691 Rad Exam; Spine Lumbosacral Completed 08/25/2009 93066 Rad Exam; Hip Unilat Completed 07/15/2009 [id number] Mammogram Completed 11/28/2008 [id number] Mammogram Completed 11/07/2008 [id number] Colonoscopy Completed 11/08/2007 [id number] Mammogram Completed Encounters Type Date Location Provider Dx Diagnosis Office Visit 05/15/2018 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 infarction, Hospitalists unspecified R79.1 Abnormal coagulation profile I10 Essential (primary) hypertension I48.91 Unspecified atrial fibrillation E03.9 Hypothyroidism, unspecified Office Visit 05/13/2018 [facility] Kavon R20.2 Paresthesia of 7:00a Clinic MD Randell skin I10 Essential (primary) hypertension I48.91 Unspecified atrial fibrillation Z79.01 nursing home (current) use of anticoagulants Office Visit 05/13/2018 9:48a [facility] Tona R20.2 Paresthesia of Assoc,jamila Paz D.O. skin Hospitalists I10 Essential (primary) hypertension I48.91 Unspecified atrial fibrillation E03.9 Hypothyroidism, unspecified Office Visit 04/28/2018 Orthopedic Deankt Escobar, G57.62 Lesion of plantar 2:00p Services Of MD nerve, left lower C.M.A. 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, left lower limb M79.672 Pain in left foot Z23 Encounter for immunization Office Visit 02/06/2018 1:30p Miguel A Dennis I48.0 Paroxysmal atrial Cardiology Of Patricia Storm, fibrillation [facility] Office Visit 09/09/2017 2:40p [facility] Internal Grant Ding Z79.01 nursing home (current) Medicine - [place], use of Oscar Gomez,FACP anticoagulants I48.0 Paroxysmal atrial fibrillation E78.2 Mixed hyperlipidemia Office Visit 07/11/2017 [facility] Internal Laurence Z01.818 Encounter for other 2:40p Medicine - Morris, 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 preprocedural [address] examination H25.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-related cataract, bilateral I48.0 Paroxysmal atrial fibrillation Z79.01 nursing home (current) use of anticoagulants K21.9 Gastro-esophageal reflux disease without esophagitis Office Visit 01/10/2017 8:20a [facility] Internal Grant Ding R10.32 Left lower Medicine - Tbjason Gay M.D.,FACP quadrant pain Rd Z23 Encounter for immunization Office Visit 11/12/2016 [place] Edgar Dennis I48.0 Paroxysmal atrial 10:00a Cardiology Of Patricia Storm, fibrillation [facility] Office Visit 11/09/2016 [facility] Internal Grant Ding Z01.810 Encounter for 2:20p Oleksandr Gay preprocedural Eliot Gomez,FACP cardiovascular examination 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
--- OUTSIDE RECORDS SUMMARY | 2018-06-14 13:18 | XMS REPORT | Continuity of Care Document ---
:1935 External Reference #:[id number] Author Name [place] Care Team Providers Name Role Phone Cat Berg M.D. Primary Care Physician Unavailable Payers Date Identification Numbers Payment Provider Subscriber Policy Number: [id number] [facility] Medicare Solutions Cat Brian Group Number: [id number] [address] [address] PayID: [id number] [place] [address] Expires: 2016 Policy Number: [id number] [facility] Ppo Che Brian Group Number: [id number] [address] [address] Group Name: DEVORA Dhaliwal [id number] PayID: [id number] Advance Directives Type Date Description Status Comment [...] Onset: 08/25/2016 Dyspnea Edgar Storm M.D., CHRISTY, [facility] Inactive Inactive: 09/22/2016 Family History Date Family Member(s) Observation Comments Father Heart Disease : (age 62 Father due to [place] Years) Mother Heart Disease age 82yrs Siblings 4 First Brother due to Heart () Disease First Sister Alzheimer's Disease First Sister due to Alzheimer's () Disease Second Sister Influenza Second Sister due to Influenza () Social History Type Date Description Comments Sex Unknown Marital Status Lives With Occupation Retired Tobacco Use Start: Unknown Never Smoked Cigarettes Smoking Status Reviewed: 05/16/18 Never Smoked Cigarettes ETOH Use Denies alcohol [...] Tramadol HCL 05/01 Active Tablets 50mg 30tab 1 tablet by s mouth every 6 F hours as Liu, needed pain Metoprolol Active Tablets ER 50mg [...] s every day Sonny Storm M.D., CHRISTY, [facility] Synthroid Active Tablets 50mcg 90tab 1 by mouth Grant /0000 s every day Toña Gay M.D.,FACYvette Hydralazine Active Tablets 25mg 270ta take 1 tablet Grant HCL /0000 bs by mouth three Toña Gay, times daily KAILA Gomez Preservision Active Capsules Areds 2 Daily Unknown [...] K21.9 Laurence s 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, - [employer]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 Omeprazole 01/[address] 20mg 30cap 1 by mouth Laurence /2017 s every day 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, - 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 Magnesium Hx Tablets 400mg 1 by [...] 09/06/ Administered Injection Edgar Dennis Regadenoson, 0.1 2017 Emeterio, MG M.D., [facility], [facility] Technetium TC 09/06/ Administered Injection Edgar Dennis 99M Tetrofosmin, 2017 Emeterio, Per Unit Dose Up M.D., To 40 [facility] Immunizations CPT Code Status Date Vaccine Lot # [id number] Given 02/27/2018 Influenza Virus Vaccine, Quadrivalent, Split, [id number] Preservative Free [id number] Given 02/27/2018 Pneumococcal Conjugate Vaccine 13 Valent For [id number] Intramuscular Use 95024 Given 01/10/2017 Influenza Virus Vaccine, Quadrivalent, Split, [id number] Preservative Free 13362 Given 11/05/2014 Pneumonia Vaccine 87513 Given 01/30/2005 Pneumonia Vaccine Vital Signs Date Vital Result Comment 05/16/2018 1:39pm Height 65 inches 5'5" Heart [...] Date Facility Test Result H/L Range Note CBC Auto Diff 05/13/2018 [facility] White Blood 9.0 10^3/uL N 3.5-10.[address] [place] [address] [phone] Red Blood Count 4.34 10^6/uL N 4.00-5.40 [...] % Nucleated Red Blood Cells % 0.1 Comp Metabolic Panel 05/13/2018 [facility] Sodium 138 mmol/L N 135-[address] [place] [address] [phone] Potassium 4.1 mmol/L N 3.5-5.0 Chloride 102 [...] Egfr Non- 60.4 >60 Egfr 73.1 >60 1 Lipid Profile 05/13/2018 [facility] Triglycerides 140 mg/dL 2 (Trig/Chol/HDL) [address] [place] [address] [phone] Cholesterol 170 mg/dL 3 HDL Cholesterol 36.3 mg/dL 4 LDL Cholesterol 106 mg/dL 5 Laboratory test 05/13/2018 [facility] Troponin-I 0.01 ng/mL < 0.[address] (TnI) [place] [address] [phone] Inr/Protime 05/13/2018 [facility] Inr 1.45 High 0.77-1.[address] [place] [address] [phone] Laboratory test 05/13/2018 [facility] Partial 40.8 High 26.0- 36.[address] [address] PTT [phone] Lactic Acid 0.9 mmol/L N 0.5-2.0 7 TSH (Thyroid Stim Horm) 5.35 mcIU/mL N 0.34-5.60 Digoxin 0.8 ng/ml N 0.8-2.0 Urinalysis Profile 05/13/2018 [facility] Urine Color Yellow [address] [place] [address] [phone] Urine Appearance Cloudy Urine Specific [place] 1.016 N 1.010-1.030 Urine pH 7.0 N 5-9 Urine Urobilinogen Negative Negative Urine Ketones Negative Negative Urine Protein Negative Negative Urine Leukocytes Negative Negative Urine Blood Negative Negative * * Abnormal Negative 8 Urine Nitrite Negative Negative Urine Bilirubin Negative Negative Urine Glucose Negative Negative Laboratory test 05/13/2018 [facility] Hemoglobin A1c 5.6 % N 4.0-5.[address] (Glyco HGB) [place] [address] [phone] Protime W/ Inr 05/11/2018 [facility] Prothrombin Time 16.9 Inr 1.4 Protime W/ Inr 05/04/2018 [facility] Prothrombin Time 18.6 Inr 1.5 Laboratory test 05/01/2018 [facility] Surgical SEE RESULT [address] [place] [address] [phone] Protime W/ Inr 04/26/2018 [facility] Prothrombin Time 28.0 Inr 2.3 Order 04/03/2018 [facility] EKG <pending> Protime W/ Inr 03/30/2018 [facility] Prothrombin Time 23.7 Inr 1.9 Protime W/ Inr 02/27/2018 [facility] Prothrombin Time 23.9 Inr 2.0 Protime W/ Inr 02/20/2018 [facility] Prothrombin Time 20.6 Inr 1.7 Protime W/ Inr 02/13/2018 [facility] Prothrombin Time 22.9 Inr 1.9 Basic Metabolic Panel 02/02/2018 [facility] Sodium 140 mmol/L N 135-[address] [place] [address] [phone] Potassium 4.8 mmol/L N 3.5-5.0 Chloride 104 mmol/L N 101-111 Co2 Carbon Dioxide 32 mmol/L N 22-32 Anion Gap 4 mmol/L N 2-11 Glucose 80 mg/dL N 70-100 Blood Urea Nitrogen 16 mg/dL N 6-24 Creatinine 0.83 mg/dL N 0.51-0.95 BUN/Creatinine Ratio 19.3 N 8-20 Calcium 9.5 mg/dL N 8.6-10.3 Egfr Non- 65.5 >60 Egfr 79.2 >60 11 CBC Auto Diff 02/02/2018 [facility] White Blood 7.8 10^3/uL N 3.5-10.[address] [place] [address] [phone] Red Blood Count 4.36 10^6/uL N 4.00-5.40 [...] Blood Cells % 0.1 Laboratory test 02/02/2018 [facility] Digoxin 1.7 ng/ml N 0.8- 2.0 [place] [address] [phone] Protime W/ Inr 02/02/2018 [facility] Prothrombin Time 21.8 Inr 1.8 Protime W/ Inr 01/06/2018 [employer] [facility] Prothrombin Time 23.9 Inr 2.0 Protime W/ Inr 11/29/2017 [facility] Prothrombin Time 30.7 Inr 2.5 Protime W/ Inr 11/01/2017 [facility] House Prothrombin Time 29.4 Inr 2.4 Protime W/ Inr 10/04/2017 [employer] [facility] House Prothrombin Time 36.6 Inr 3.0 Protime W/ Inr 09/26/2017 [employer] [facility] In House Prothrombin Time 39.0 Inr 3.2 Protime W/ Inr 09/09/2017 [facility] House Prothrombin Time 23.2 Inr 1.9 Protime W/ Inr 08/31/2017 [employer] [facility] Prothrombin Time 16.3 Inr 1.3 Laboratory 08/31/2017 [facility] TSH (Thyroid Stim 3.40 N 0.34 -5.60 [address] Horm) mcIU/[place] [address] [phone] Lipid Profile 08/31/2017 [facility] Triglycerides 208 mg/dL 13 (Trig/Chol/HDL [facility]IT [facility] ) [place] [address] [phone] Cholesterol 206 mg/dL 14 HDL Cholesterol 33.6 mg/dL 15 LDL Cholesterol 131 mg/dL 16 Laboratory 08/31/2017 [facility] Digoxin 0.7 ng/ml Low 0.8- 2.0 [address] [place] [address] [phone] Inr/Protime 08/31/2017 [facility] Inr 2.30 High 0.77-1.02 [address] [place] [address] [phone] Inr/Protime 08/02/2017 [facility] Inr 2.49 High 0.77-1.02 [address] [place] [address] [phone] Protime W/ Inr 07/11/2017 [facility] Prothrombin 30.8 Time Inr 2.5 Protime W/ Inr 06/20/2017 Other Rendering Inr 2.1 Protime W/ Inr 05/18/2017 Other Rendering Inr 2.6 Protime W/ Inr 04/21/2017 Other Rendering Inr 2.4 Protime W/ Inr 03/30/2017 Other Rendering Inr 2.4 Protime W/ Inr 03/23/2017 Other Rendering Inr 3.3 Protime W/ Inr 02/17/2017 [facility] Prothrombin Time 27.4 Inr 2.2 Protime W/ Inr 02/03/2017 [facility] Prothrombin Time 19.3 Inr 1.6 Protime W/ Inr 01/18/2017 [facility] Prothrombin Time 28.7 Inr 2.3 Comp Metabolic Panel 01/10/2017 [facility] Sodium 138 mmol/L N 133-145 [address] [place] [address] [phone] Potassium 4.7 mmol/L N 3.5-5.0 Chloride 103 [...] N >60 18 CBC Auto Diff 01/10/2017 [facility] White Blood 6.9 10^3/uL N 3.5-10.[address] [place] [address] [phone] Red Blood Count 4.46 10^6/uL N 4.0-5.4 [...] Cells % 0 N Laboratory test 01/10/2017 [facility] Lipase 24 U/L N 11.0- 82.[address] [place] [address] [phone] Inr/Protime 01/10/2017 [facility] Inr 3.50 High 0.89-1.[address] [place] [address] [phone] Protime W/ Inr 12/20/2016 [facility] Prothrombin Time 35.3 Inr 2.9 Protime W/ Inr 12/03/2016 [employer] [facility] Prothrombin Time 24.8 Inr 2.0 CBC Auto Diff 11/25/2016 [facility] White Blood 8.3 10^3/uL N 3.5-10.[address] [place] [address] [phone] Red Blood Count 4.32 10^6/uL N 4.0-5.4 [...] Blood Cells % 0 N Inr/Protime 11/25/2016 [facility] Inr 1.56 High 0.89-1.11 [address] [place] [address] [phone] Basic Metabolic 11/25/2016 [facility] Sodium 137 mmol/L N 133- 145 Panel [address] [place] [address] [phone] Potassium 4.3 mmol/L N 3.5-5.0 Chloride 104 [...] N >60 19 CBC Auto Diff 11/10/2016 [facility] White Blood 7.7 10^3/uL N 3.5-10.[address] [place] [address] [phone] Red Blood Count 4.63 10^6/uL N 4.0-5.4 [...] Blood Cells % 0.2 N Inr/Protime 11/10/2016 [facility] Inr 2.22 High 0.89-1.11 [address] [place] [address] [phone] Comp Metabolic 11/10/2016 [facility] Sodium 137 mmol/L N 133- 145 Panel [address] [place] [address] [phone] Potassium 4.3 mmol/L N 3.5-5.0 Chloride 102 [...] N >60 20 Protime W/ Inr 10/25/2016 [employer] [facility] Prothrombin Time 33.0 Inr 2.7 Basic Metabolic Panel 09/22/2016 [facility] Sodium 138 mmol/L N 133-[address] [place] [address] [phone] Potassium 4.5 mmol/L N 3.5-5.0 Chloride 103 mmol/L N 101-111 Co2 Carbon Dioxide 30 mmol/L N 22-32 Anion Gap 5 mmol/L N 2-11 Glucose 93 mg/dL N 70-100 Blood Urea Nitrogen 11 mg/dL N 6-24 Creatinine 0.83 mg/dL N 0.51-0.95 BUN/Creatinine Ratio 13.3 N 8-20 Calcium 9.4 mg/dL N 8.6-10.3 Egfr Non- 65.8 N >60 Egfr 84.6 N >60 21 Laboratory test 09/22/2016 [facility] TSH (Thyroid 2.88 mcIU/mL N 0.34-5.[address] Stim Horm) [place] [address] [phone] Free T4 (Free Thyroxine) 0.87 ng/dL N 0.61-1.12 Digoxin 1.1 ng/ml N 0.8-2.0 Inr/Protime 09/22/2016 [facility] Inr 2.41 High 0.89-1.[address] [place] [address] [phone] Laboratory test 09/22/2016 [facility] Erythrocyte Sed 29 mm/Hr N 0-[address] [place] [address] [phone] Inr/Protime 09/01/2016 [facility] Inr 2.38 High 0.89-1.[address] [place] [address] [phone] 1 Because ethnic data is not always [...] 5 Kidney failure <15 (or dialysis) 2 Desirable: <150 Borderline High: 150-199 High: 200-499 Very High: >500 3 Desirable: <200 Borderline High: 200-239 High: >239 4 Low: <40 Desirable: 40-60 High: >60 5 Desirable: <100 Near Optimal: 100-129 Borderline High: 130-159 High: 160-189 Very High: >189 6 Troponin-I testing on Plasma Separator Tubes (PST) has a known false positive rate of 0.20-0.40%. All positive troponins reflex immediate secondary confirmatory testing. 7 [facility] Severe Sepsis and Septic Shock Management Bundle Measure requires all lactic acids initially measuring >2.0 mmol/L be repeated. 8 *Ascorbic acid is present which may interfere with detection of blood. 9 Therapeutic target for the treatment of diabetes mellitus patients is <7% HBA1C, and in selective patients <6.0%. Please refer to [place] [employer] diabetic care guidelines for further information. 10 SEE RESULT BELOW Name: CAT BRIAN: [address]: Candelario Lockett MD Acct: [id number] Unit: [id number] AGE: 82 Location: OR Re05/01/18 SEX: F Status: BARB MONTALVO SPEC: [id number] TAMIA: 05/01/18- [facility] DR: Candelario Lockett MD REQ: [id number] RECD: 05/01/18 STATUS: SOUT _ ORDERED: LEVEL [...] 1514 END OF REPORT DEPARTMENT OF PATHOLOGY, [address] [place] [address] Rickie Stein M.D. Director [facility] # [id number] 11 Because ethnic data is not always [...] dialysis) Procedures Date Code Description Status 05/14/2018 44164 ECHO Transthorasic Realtime 2D W Doppler & Color Flow Completed Hosp 05/01/2018 84569 Arthrotomy Wrist With Synovectomy Completed 05/01/2018 26661 Arthrotomy Wrist With Synovectomy Completed 04/28/2018 08870 Injection Anesthetic Agent/Steroid Plantar Common Completed Digital Nerve 04/24/2018 896860104 Diabetic Retinal Eye Exam Completed 04/17/2018 43886 EKG Tracing & Interpretation Completed 04/10/2018 01183 ECHO Transthoracic, Real-Time 2D With Doppler And Completed Color Flow 04/10/2018 29150 ECHO Transthoracic, Real-Time 2D With Doppler And Completed Color Flow 04/03/2018 78681 EKG Tracing & Interpretation Completed 03/06/2018 [id number] Diabetic Retinal Eye Exam Completed 02/16/2018 [id number] Diabetic Retinal Eye Exam Completed 02/06/2018 92337 EKG Tracing & Interpretation Completed 02/22/2017 [id number] Mammogram Completed 11/12/2016 87026 EKG Tracing & Interpretation Completed 09/06/2016 67587 Stress Test Completed 09/06/2016 67413 Myocardial Perfusion Imaging Tomographic (Spect) Completed Multiple Studies 09/03/2016 02815 ECHO Transthoracic, Real-Time 2D With Doppler And Completed Color Flow 08/25/2016 63253 EKG Tracing & Interpretation Completed 12/26/2015 [id number] Mammogram Completed 12/19/2014 [id number] Mammogram Completed 12/24/2013 [id number] Mammogram Completed 12/21/2012 [id number] Mammogram Completed 12/24/2011 [id number] Mammogram Completed 02/11/2010 [id number] Mammogram Completed 08/25/2009 75380 Rad Exam; Pelvis Completed 08/25/2009 49974 Rad Exam; Spine Lumbosacral Completed 08/25/2009 12808 Rad Exam; Hip Unilat Completed 07/15/2009 [id number] Mammogram Completed 11/28/2008 [id number] Mammogram Completed 11/07/2008 [id number] Colonoscopy Completed 11/08/2007 [id number] Mammogram Completed Encounters Type Date Location Provider Dx Diagnosis Office Visit 04/28/2018 Orthopedic Dean Escobar, G57.62 Lesion of plantar 2:00p Services Of nerve, left lower C.M.A. 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, left lower limb M79.672 Pain in left foot Z23 Encounter for immunization Office Visit 02/06/2018 1:30p [place] Edgar Dennis I48.0 Paroxysmal atrial Cardiology Of Patricia Storm, fibrillation [facility], GI Office Visit 09/09/2017 2:40p [facility] Internal Grant Ding Z79.01 longterm (current) Medicine - [place], use of Rd M.DZulema,FACP anticoagulants I48.0 Paroxysmal atrial fibrillation E78.2 Mixed hyperlipidemia Office Visit 07/11/2017 [facility] Internal Laurence Z01.818 Encounter for other 2:40p Oleksandr Morris NP preprocedural [address] examination H25.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-related cataract, bilateral I48.0 Paroxysmal atrial fibrillation 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 K21.9 Gastro-esophageal reflux disease without esophagitis Office Visit 01/10/2017 8:20a [facility] Internal Grant Ding R10.32 Left lower Medicine - Tbjason Gay M.D.,FACP quadrant pain Rd Z23 Encounter for immunization Office Visit 11/12/2016 [place] Edgar Dennis I48.0 Paroxysmal atrial 10:00a Cardiology Of Patricia Storm, fibrillation [facility], [facility] Office Visit 11/09/2016 [facility] Internal Grant Ding Z01.810 Encounter for 2:20p Oleksandr Gay preprocedural Eliot Gomez,FACP cardiovascular examination 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, unilateral I48.0 Paroxysmal atrial fibrillation I10 Essential (primary) hypertension Office Visit 09/22/2016 11:50a [facility] Internal Grant Ding I48.0 Paroxysmal atrial Oleksandr Gay M.D.,FACP fibrillation [address] I10 Essential (primary) hypertension E03.9 Hypothyroidism, unspecified M35.3 Polymyalgia rheumatica Office Visit 08/25/2016 9:45a [place] [facility] Edgar Dennis R06.02 Shortness of Of [facility] Patricia Storm, breath [facility] Office Visit 08/25/2009 3:00p Orthopedic Dirk Ab, 922.32 Contusion Services Of ZulemaMSharon Gomez Buttock 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 848.9 Sprains & Strains Unspec Site 721.3 Spondylosis Lumbar W/O Myelopathy Plan of Treatment Future Appointment(s):06/13/2018 10:00 am - Candelario Lockett MD at Orthopedic Services Of C.M.AZulema06/27/2018 9:00 am - Cat Berg MD at [facility] Internal Medicine - [address]/16/2018 - Candelario Lockett, MDR22.32 Localized swelling, mass and lump, left upper limbFollow up:Follow up: 4 weeks
--- OUTSIDE RECORDS SUMMARY | 2018-06-14 13:18 | XMS REPORT | Continuity of Care Document ---
:1935 External Reference #:[id number] Author Name Kane Lucille Care Team Providers Name Role Phone Cat Berg M.D. 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 Onset: 09/22/2016 Chronic atrial fibrillation Grant Gay, Inactive Patricia,FACP Inactive: 09/22/2016 Onset: 08/25/2016 Dyspnea Edgar Storm M.D., FAC, FASNC Inactive Inactive: 09/22/2016 Family History Date Family Member(s) Observation Comments Father Heart Disease : (age 62 Father due to IA Years) Mother Heart Disease age 82yrs Siblings 4 First Brother due to Heart () Disease First Sister Alzheimer's Disease First Sister due to Alzheimer's () Disease Second Sister Influenza Second Sister due to Influenza () Social History Type Date Description Comments Sex Unknown Marital Status Lives With Occupation Retired Tobacco Use Start: Unknown Never Smoked Cigarettes Smoking Status Reviewed: 05/22/18 Never Smoked Cigarettes ETOH Use Denies alcohol [...] Tablets 5mg 100ta 1.5 tab 2/wk Cat /0000 bs and 1 tab 5/wk Berg, by mouth every MD night or as directed Digoxin Active Tablets 250mcg 90tab 1 by mouth Cat /0000 s every day MD Morena Synthroid Active Tablets 50mcg 90tab 1 by mouth Cat /0000 s every day MD Morena Hydralazine Active Tablets 25mg 270ta take 1 tablet Cat HCL / bs by mouth three Berg, times daily MD Preservision Active Capsules Areds 2 Daily Unknown Areds 2 /0000 Glucosamine 00 Active Capsules 1500Com 1 by mouth Unknown [...] mouth K21.9 s 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, - 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 02/05 Omeprazole 01/[address] 20mg 30cap 1 by mouth Laurence /2017 s every day for Morris, - 2 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 07/11 Magnesium 0000 Hx Tablets 400mg 1 [...] Edgar Dennis Regadenoson, 0.1 2017 Emeterio, MG Patricia, [facility] Technetium TC 09/06/ Administered Injection Edgar Dennis 99M Tetrofosmin, 2017 Emeterio, Per Unit Dose Up M.D., To 40 [facility] Immunizations CPT Code Status Date Vaccine Lot # [id number] Given 02/27/2018 Influenza Virus Vaccine, Quadrivalent, Split, [id number] Preservative Free 90372 Given 02/27/2018 Pneumococcal Conjugate Vaccine 13 Valent For [id number] Intramuscular Use 87487 Given 01/10/2017 Influenza Virus Vaccine, Quadrivalent, Split, [id number] Preservative Free 52062 Given 11/05/2014 Pneumonia Vaccine 52192 Given 01/30/2005 Pneumonia Vaccine Vital Signs Date Vital Result Comment 05/22/2018 1:23pm Height 65 inches 5'5" Weight [...] Result H/L Range Note Protime W/ Inr 05/22/2018 [facility] Prothrombin Time 38.2 Inr 3.1 Protime W/ Inr 05/16/2018 [facility] Prothrombin Time 24.2 Inr 2.0 CBC Auto Diff 05/13/2018 [facility] White Blood 9.0 10^3/uL N 3.5-10.[address] [place] [address] [phone] Red Blood Count 4.34 10^6/uL N 4.00-5.40 [...] Cells % 0.1 Comp Metabolic Panel 05/13/2018 [facility] Sodium 138 mmol/L N 135-[address] [place] [address] [phone] Potassium 4.1 mmol/L N 3.5-5.0 Chloride 102 [...] Egfr 73.1 >60 1 Lipid Profile 05/13/2018 [facility] Triglycerides 140 mg/dL 2 (Trig/Chol/HDL) [place] [address] [phone] Cholesterol 170 mg/dL 3 HDL Cholesterol 36.3 mg/dL 4 LDL Cholesterol 106 mg/dL 5 Laboratory test 05/13/2018 [facility] Troponin-I 0.01 ng/mL < 0.04 6 finding (TnI) [place] [address] [phone] Inr/Protime 05/13/2018 [facility] Inr 1.45 High 0.77-1.02 [place] [address] [phone] Laboratory test 05/13/2018 [facility] Partial 40.8 High 26.0- 36.[address] [place] [address] PTT [phone] Lactic Acid 0.9 mmol/L N 0.5-2.0 7 TSH (Thyroid Stim Horm) 5.35 mcIU/mL N 0.34-5.60 Digoxin 0.8 ng/ml N 0.8-2.0 Urinalysis Profile 05/13/2018 [facility] Urine Color Yellow [address] [place] [address] [phone] Urine Appearance Cloudy Urine Specific [place] 1.016 N 1.010-1.030 Urine pH 7.0 N 5-9 Urine Urobilinogen Negative Negative Urine Ketones Negative Negative Urine Protein Negative Negative Urine Leukocytes Negative Negative Urine Blood Negative Negative * * Abnormal Negative 8 Urine Nitrite Negative Negative Urine Bilirubin Negative Negative Urine Glucose Negative Negative Laboratory test 05/13/2018 [facility] Hemoglobin A1c 5.6 % N 4.0-5.[address] (Glyco HGB) [place] [address] [phone] Protime W/ Inr 05/11/2018 [facility] Prothrombin Time 16.9 Inr 1.4 Protime W/ Inr 05/04/2018 [facility] Prothrombin Time 18.6 Inr 1.5 Laboratory test 05/01/2018 [facility] Surgical SEE RESULT [address] [place] [address] [phone] Protime W/ Inr 04/26/2018 [facility] Prothrombin Time 28.0 Inr 2.3 Order 04/03/2018 [facility] EKG <pending> Protime W/ Inr 03/30/2018 [facility] Prothrombin Time 23.7 Inr 1.9 Protime W/ Inr 02/27/2018 [facility] Prothrombin Time 23.9 Inr 2.0 Protime W/ Inr 02/20/2018 [facility] Prothrombin Time 20.6 Inr 1.7 Protime W/ Inr 02/13/2018 [facility] Prothrombin Time 22.9 Inr 1.9 Basic Metabolic Panel 02/02/2018 [facility] Sodium 140 mmol/L N 135-[address] [place] [address] [phone] Potassium 4.8 mmol/L N 3.5-5.0 Chloride 104 mmol/L N 101-111 Co2 Carbon Dioxide 32 mmol/L N 22-32 Anion Gap 4 mmol/L N 2-11 Glucose 80 mg/dL N 70-100 Blood Urea Nitrogen 16 mg/dL N 6-24 Creatinine 0.83 mg/dL N 0.51-0.95 BUN/Creatinine Ratio 19.3 N 8-20 Calcium 9.5 mg/dL N 8.6-10.3 Egfr Non- 65.5 >60 Egfr 79.2 >60 11 CBC Auto Diff 02/02/2018 [facility] White Blood 7.8 10^3/uL N 3.5-10.[address] [place] [address] [phone] Red Blood Count 4.36 10^6/uL N 4.00-5.40 [...] Blood Cells % 0.1 Laboratory test 02/02/2018 [facility] Digoxin 1.7 ng/ml N 0.8- 2.[address] [place] [address] [phone] Protime W/ Inr 02/02/2018 [facility] Prothrombin Time 21.8 Inr 1.8 Protime W/ Inr 01/06/2018 [facility] Prothrombin Time 23.9 Inr 2.0 Protime W/ Inr 11/29/2017 [facility] Prothrombin Time 30.7 Inr 2.5 Protime W/ Inr 11/01/2017 [facility] Prothrombin Time 29.4 Inr 2.4 Protime W/ Inr 10/04/2017 [facility] Prothrombin Time 36.6 Inr 3.0 Protime W/ Inr 09/26/2017 [facility] Prothrombin Time 39.0 Inr 3.2 Protime W/ Inr 09/09/2017 [facility] Prothrombin Time 23.2 Inr 1.9 Protime W/ Inr 08/31/2017 [facility] Prothrombin Time 16.3 Inr 1.3 Laboratory 08/31/2017 [facility] TSH (Thyroid Stim 3.40 N 0.34 -5.60 12 test finding [address] Horm) mcIU/[place] [address] [phone] Lipid Profile 08/31/2017 [facility] Triglycerides 208 mg/dL 13 (Trig/Chol/HDL [address] ) [place] [address] [phone] Cholesterol 206 mg/dL 14 HDL Cholesterol 33.6 mg/dL 15 LDL Cholesterol 131 mg/dL 16 Laboratory 08/31/2017 [facility] Digoxin 0.7 ng/ml Low 0.8- 2.0 17 test finding [address] [place] [address] [phone] Inr/Protime 08/31/2017 [facility] Inr 2.30 High 0.77-1.02 [address] [place] [address] [phone] Inr/Protime 08/02/2017 [facility] Inr 2.49 High 0.77-1.02 [address] [place] [address] [phone] Protime W/ Inr 07/11/2017 [facility] Prothrombin 30.8 Time Inr 2.5 Protime W/ Inr 06/20/2017 Other Rendering Inr 2.1 Protime W/ Inr 05/18/2017 Other Rendering Inr 2.6 Protime W/ Inr 04/21/2017 Other Rendering Inr 2.4 Protime W/ Inr 03/30/2017 Other Rendering Inr 2.4 Protime W/ Inr 03/23/2017 Other Rendering Inr 3.3 Protime W/ Inr 02/17/2017 [facility] Prothrombin Time 27.4 Inr 2.2 Protime W/ Inr 02/03/2017 [facility] Prothrombin Time 19.3 Inr 1.6 Protime W/ Inr 01/18/2017 [facility] Prothrombin Time 28.7 Inr 2.3 Comp Metabolic Panel 01/10/2017 [facility] Sodium 138 mmol/L N 133-145 [address] [place] [address] [phone] Potassium 4.7 mmol/L N 3.5-5.0 Chloride 103 [...] N >60 18 CBC Auto Diff 01/10/2017 [facility] White Blood 6.9 10^3/uL N 3.5-10.[address] [place] [address] [phone] Red Blood Count 4.46 10^6/uL N 4.0-5.4 [...] Cells % 0 N Laboratory test 01/10/2017 [facility] Lipase 24 U/L N 11.0- 82.[address] [place] [address] [phone] Inr/Protime 01/10/2017 [facility] Inr 3.50 High 0.89-1.[address] [place] [address] [phone] Protime W/ Inr 12/20/2016 [facility] Prothrombin Time 35.3 Inr 2.9 Protime W/ Inr 12/03/2016 [facility] Prothrombin Time 24.8 Inr 2.0 CBC Auto Diff 11/25/2016 [facility] White Blood 8.3 10^3/uL N 3.5-10.[address] [place] [address] [phone] Red Blood Count 4.32 10^6/uL N 4.0-5.4 [...] Blood Cells % 0 N Inr/Protime 11/25/2016 [facility] Inr 1.56 High 0.89-1.[address] [place] [address] [phone] Basic Metabolic 11/25/2016 [facility] Sodium 137 mmol/L N 133- [address] [place] [address] [phone] Potassium 4.3 mmol/L N 3.5-5.0 Chloride 104 [...] N >60 19 CBC Auto Diff 11/10/2016 [facility] White Blood 7.7 10^3/uL N 3.5-10.[address] [place] [address] [phone] Red Blood Count 4.63 10^6/uL N 4.0-5.4 [...] Blood Cells % 0.2 N Inr/Protime 11/10/2016 [facility] Inr 2.22 High 0.89-1.11 [address] [place] [address] [phone] Comp Metabolic 11/10/2016 [facility] Sodium 137 mmol/L N 133- 145 Panel [address] [place] [address] [phone] Potassium 4.3 mmol/L N 3.5-5.0 Chloride 102 [...] N >60 20 Protime W/ Inr 10/25/2016 [facility] Prothrombin Time 33.0 Inr 2.7 Basic Metabolic Panel 09/22/2016 [facility] Sodium 138 mmol/L N 133-145 [address] [place] [address] [phone] Potassium 4.5 mmol/L N 3.5-5.0 Chloride 103 mmol/L N 101-111 Co2 Carbon Dioxide 30 mmol/L N 22-32 Anion Gap 5 mmol/L N 2-11 Glucose 93 mg/dL N 70-100 Blood Urea Nitrogen 11 mg/dL N 6-24 Creatinine 0.83 mg/dL N 0.51-0.95 BUN/Creatinine Ratio 13.3 N 8-20 Calcium 9.4 mg/dL N 8.6-10.3 Egfr Non- 65.8 N >60 Egfr 84.6 N >60 21 Laboratory test 09/22/2016 [facility] TSH (Thyroid 2.88 mcIU/mL N 0.34-5.[address] Stim Horm) [place] [address] [phone] Free T4 (Free Thyroxine) 0.87 ng/dL N 0.61-1.12 Digoxin 1.1 ng/ml N 0.8-2.0 Inr/Protime 09/22/2016 [facility] Inr 2.41 High 0.89-1.[address] [place] [address] [phone] Laboratory test 09/22/2016 [facility] Erythrocyte Sed 29 mm/Hr N 0-[address] [place] [address] [phone] Inr/Protime 09/01/2016 [facility] Inr 2.38 High 0.89-1.[address] [place] [address] [phone] 1 Because ethnic data is not always [...] troponins reflex immediate secondary confirmatory testing. 7 [facility] Severe Sepsis and Septic Shock Management Bundle Measure requires all lactic acids initially measuring >2.0 mmol/L be repeated. 8 *Ascorbic acid is present which may interfere with detection of blood. 9 Therapeutic target for the treatment of diabetes mellitus patients is <7% HBA1C, and in selective patients <6.0%. Please refer to [place] [employer] diabetic care guidelines for further information. 10 SEE RESULT BELOW Name: JIMMARGARITA : [address]: Candelario Lockett MD Acct: [id number] Unit: [id number] AGE: 82 Location: OR Re05/01/18 SEX: F Status: BARB MONTALVO SPEC: [id number] TAMIA: 05/01/18- [facility] DR: Candelario Lockett MD REQ: [id number] RECD: 05/01/18 STATUS: SOUT _ ORDERED: LEVEL [...] 1514 END OF REPORT DEPARTMENT OF PATHOLOGY, [address] [place] [address] Rickie Stein M.D. Director [facility] # [id number] 11 Because ethnic data is not always [...] dialysis) Procedures Date Code Description Status 05/14/2018 61077 ECHO Transthorasic Realtime 2D W Doppler & Color Flow Completed Hosp 05/01/2018 84128 Arthrotomy Wrist With Synovectomy Completed 05/01/2018 32846 Arthrotomy Wrist With Synovectomy Completed 04/28/2018 73111 Injection Anesthetic Agent/Steroid Plantar Common Completed Digital Nerve 04/24/2018 [id number] Diabetic Retinal Eye Exam Completed 04/17/2018 46310 EKG Tracing & Interpretation Completed 04/10/2018 81845 ECHO Transthoracic, Real-Time 2D With Doppler And Completed Color Flow 04/10/2018 85895 ECHO Transthoracic, Real-Time 2D With Doppler And Completed Color Flow 04/03/2018 78253 EKG Tracing & Interpretation Completed 03/06/2018 [id number] Diabetic Retinal Eye Exam Completed 02/16/2018 [id number] Diabetic Retinal Eye Exam Completed 02/06/2018 14602 EKG Tracing & Interpretation Completed 02/22/2017 [id number] Mammogram Completed 11/12/2016 87495 EKG Tracing & Interpretation Completed 09/06/2016 18522 Stress Test Completed 09/06/2016 25129 Myocardial Perfusion Imaging Tomographic (Spect) Completed Multiple Studies 09/03/2016 03168 ECHO Transthoracic, Real-Time 2D With Doppler And Completed Color Flow 08/25/2016 28050 EKG Tracing & Interpretation Completed 12/26/2015 [id number] Mammogram Completed 12/19/2014 [id number] Mammogram Completed 12/24/2013 [id number] Mammogram Completed 12/21/2012 [id number] Mammogram Completed 12/24/2011 [id number] Mammogram Completed 02/11/2010 [id number] Mammogram Completed 08/25/2009 89039 Rad Exam; Pelvis Completed 08/25/2009 59424 Rad Exam; Spine Lumbosacral Completed 08/25/2009 51264 Rad Exam; Hip Unilat Completed 07/15/2009 [id number] Mammogram Completed 11/28/2008 [id number] Mammogram Completed 11/07/2008 [id number] Colonoscopy Completed 11/08/2007 [id number] Mammogram Completed Encounters Type Date Location Provider Dx Diagnosis Office Visit 05/15/2018 [facility] Mirna Chino, I63.9 Cerebral 9:49a jamila Carmona M.D. infarction, Hospitalists unspecified R79.1 Abnormal coagulation profile I10 Essential (primary) hypertension I48.91 Unspecified atrial fibrillation E03.9 Hypothyroidism, unspecified Office Visit 04/28/2018 Orthopedic Dean Escobar, G57.62 Lesion of plantar 2:00p Services Of nerve, left lower C.M.A. 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, unilateral I48.0 Paroxysmal atrial fibrillation I10 Essential (primary) hypertension Office Visit 09/22/2016 11:50a [facility] Jillian Ding I48.0 Paroxysmal atrial Oleksandr Gay M.D.,FACP fibrillation [address] I10 Essential (primary) hypertension E03.9 Hypothyroidism, unspecified M35.3 Polymyalgia rheumatica Office Visit 08/25/2016 9:45a Varina Cardiology Edgar Dennis R06.02 Shortness of Of Marisol Storm M.D., breath FAC, [facility] Office Visit 08/25/2009 3:00p Orthopedic Dirk Ab, 922.32 Contusion Services Of Cristiana Gomez Buttock 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
[2018-06-14 13:49] LABS: ABS Basophils 0.1 10^3/ul (0-0.2); ABS Eosinophils 0.1 10^3/ul (0-0.6); ABS Lymphocytes 2.4 10^3/ul (1.0-4.8); ABS Monocytes 0.8 10^3/ul (0-0.8); ABS Neutrophils 5.6 10^3/ul (1.5-7.7); ABS Nucleated RBC 0 10^3/ul; Eosinophil % 1.6 %; Hematocrit 40 % (33-41); Hemoglobin 13.6 g/dL (12.0-16.0); Lymphocyte % 26.4 %; Mean Corpuscular HGB Conc 34 g/dL (31-36); Mean Corpuscular Hemoglobin 31 pg (27-31); Mean Corpuscular Volume 93 fL (80-97); Mean Platelet Volume 7.9 fL (7.4-10.4); Nucleated Red Blood Cells % 0; Platelet Count 212 10^3/uL (150-450); Red Blood Count 4.34 10^6 /uL (3.70-4.87); Red Cell Distribution Width 14 % (10.5-15); White Blood Count 8.9 10^3/uL (3.5-10.8)
[2018-06-14 13:59] LABS: Activated Partial Thrombo Time 39.3 seconds (26.0-36.3); INR 1.37 (0.77-1.02)
[2018-06-14 14:06] LABS: ALT 22 U/L (7-52); AST 29 U/L (13-39); Albumin 4.2 g/dL (3.2-5.2); Albumin/Globulin Ratio 1.6 (1-3); Alkaline Phosphatase 52 U/L (34-104); Anion Gap 7 mmol/L (2-11); BUN/Creatinine Ratio 18.1 (8-20); Blood Urea Nitrogen 13 mg/dL (6-24); CO2 Carbon Dioxide 29 mmol/L (22-32); Calcium 9.3 mg/dL (8.6-10.3); Chloride 101 mmol/L (101-111); EGFR African American 93.4 (>60); EGFR Non-African American 77.2 (>60); Globulin 2.6 g/dL (2-4); Glucose 96 mg/dL (70-100); Magnesium 2.2 mg/dL (1.9-2.7); Potassium 4.1 mmol/L (3.5-5.0); Sodium 137 mmol/L (135-145); Total Protein 6.8 g/dL (6.4-8.9)
[2018-06-14 14:24] LABS: Troponin I 0.04 ng/mL (<0.04)
[2018-06-14] MEDS ORDERED: hydrALAZINE IV* 20 MG/ML VIAL IV SLOW PU PRN (15:31)
[2018-06-14] MEDS ORDERED: LORazepam INJ* 2 MG/ML 1 ML VIAL IV PUSH ONE (16:05)
[2018-06-14 16:36] LABS: Urine Appearance Clear; Urine Bilirubin Negative (Negative); Urine Blood Negative (Negative); Urine Color Yellow; Urine Glucose Negative (Negative); Urine Ketones Negative (Negative); Urine Nitrite Negative (Negative); Urine Protein Negative (Negative); Urine Specific Gravity 1.008 (1.010-1.030); Urine Urobilinogen Negative (Negative)
[2018-06-14] MEDS ORDERED: Warfarin TAB(*) 7.5 MG PO SCH (17:00)
[2018-06-14] MEDS ORDERED: Acetaminophen TAB* 325 MG PO PRN (17:54)
--- NOTE | 2018-06-14 19:21 | HP ---
ADMITTING HISTORY AND PHYSICAL: DATE OF ADMISSION: 06/14/18 CHIEF COMPLAINT: Intermittent "tingling sensation" of the right side of her body, both upper and lower extremities. HISTORY OF PRESENT ILLNESS: The patient is an 82-year-old lady with history of hypertension; atrial fibrillation, on Coumadin; and recent diagnosis of TIA where she was just recently discharged on 05/15/18 where an MRI was found to be otherwise devoid of any acute issues. She mentions that she she thought that metoprolol is the same thing as statins and has not taken her metoprolol since her discharge. She mentions that the right-sided tingling she complained of in the previous admission was still present at the time of discharge, but has somewhat gradually disappeared. This recurred again 2 nights prior to admission and then disappeared. She had a recurrence of symptoms again this a.m. and family and the patient called Dr. Storm's office, who instructed them to obtain her vital signs, where she noted that her pulse rate was in the 120s and blood pressure was in the 190s systolic. She might also have had some form of palpitations prior to her reaching the hospital. In the hospital, she mentions that she feels somewhat better after she took her hydralazine and digoxin at around 9:30 a.m. PAST MEDICAL AND SURGICAL HISTORY: 1. Hypertension. 2. Atrial fibrillation. 3. Hypothyroidism. 4. Vocal cord dysfunction. 5. History of TIA. 6. Status post left wrist ganglion cyst removal. 7. Status post cataract surgery. 8. Tonsillectomy. 9. Hysterectomy. 10. Vein stripping surgery. 11. Throat surgery. MEDICATIONS: Her home medications are: 1. Digoxin. 2. Hydralazine. 3. Levothyroxine. 4. Metoprolol succinate. 5. PreserVision AREDS 2. 6. Warfarin 4 mg on Sundays, Tuesdays, , and Saturdays and 7.5 mg p.o. on Mondays, Wednesdays, and Fridays. New Medications from previous discharge shows: 1. Lovenox 80 mg subcu q.12 until INR is greater than 2. 2. Atorvastatin 40 mg p.o. q.h.s. REVIEW OF SYSTEMS: Palpitations as well as right-sided tingling. Denies any headaches, dizziness, fevers, chills, nausea, vomiting, chest pain, shortness of breath, increased coughing or sputum production, abdominal pain, diarrhea, constipation, pain, and/or increased frequency on urination, myalgias, arthralgias, throat pain, or new skin lesions other than what was described above. The rest of the 14-point review of systems are, otherwise, unremarkable. PHYSICAL EXAMINATION GENERAL APPEARANCE: The patient is awake, oriented x3, not in acute distress. VITAL SIGNS: Reveals the most recent vital signs of records with blood pressure of 189/98 on presentation, 96% saturation, 73 beats per minute heart rate, 99 degrees Fahrenheit. HEENT: Normocephalic, atraumatic. PERRLA. Extraocular muscles intact. Negative for icterus. Moist oral mucosa. Negative throat erythema. NECK: Soft, supple with no cervical lymphadenopathy. No JVD. CHEST: Clear to auscultation bilaterally. Good air entry. No wheezes, rales, or rhonchi. HEART: S1, S2, within normal limits. Regular rate and rhythm. No murmurs, rubs, or gallops. ABDOMEN: Soft, nondistended, nontender. Normoactive bowel sounds x4 quadrants. EXTREMITIES: No cyanosis, clubbing, or edema. PSYCHIATRIC: No active psychosis, depression, suicidal or homicidal ideations. SKIN: Warm to touch. DIAGNOSTIC STUDIES/LAB DATA: Most recent pertinent laboratories drawn shows CBC with a WBC, platelets, as well as an H and H that were all found to be normal. Sodium, potassium, BUN and creatinine were found to be normal. INR which is subtherapeutic at 1.37. Troponins mildly elevated at 0.04. EKG shows V5 to V6 ST segment depression. Chest x-ray shows stigmata that is likely consistent with COPD. CT of the head shows chronic ischemic white matter changes. ASSESSMENT AND PLAN: The patient is an 82-year-old lady with history of hypertension, atrial fibrillation, and recent diagnosis of transient ischemic attack, who is being admitted for hypertensive urgency. 1. Hypertensive urgency, likely cause of intermittent tingling sensation in both the upper and lower extremities on the right as well as possible mildly elevated troponins. At this time, the patient will be placed back on her metoprolol and clarified that this was discussed with her on previous discharge and she was told to continue it. We will also place the patient on p.r.n. hydralazine IV with appropriate holding orders as discussed. Likely secondary to type 2 and/or demand ischemia. We will order for a 2D echo in the a.m. to obtain data of wall motion as well as ejection fraction. 2. Tingling sensation, right. Please see above discussion. 3. Hypothyroidism. We will check TSH. Continue levothyroxine. 4. Atrial fibrillation. Continue warfarin as well as digoxin as well as metoprolol. 5. DVT prophylaxis. The patient is currently on warfarin; however, she is slightly subtherapeutic at 1.37 and hence we will continue watchful waiting. 6. Disposition. As above. [id number]/CPS #: [id number]
--- NOTE | 2018-06-14 20:09 | CONS ---
CC: Dr. Berg; Dr. Mejias* CONSULTATION REPORT: DATE OF CONSULT: 06/14/18 PRIMARY CARE PROVIDER: Dr. Berg. LOCATION: Consultation in the ER. REASON FOR CONSULT: Right-sided numbness and tingling. HISTORY OF PRESENT ILLNESS: Ms. Brian is a very nice 82-year-old female who has a history of hypertension, atrial fibrillation, hypothyroidism, some vocal cord abnormalities who was previously admitted to the hospital about a month ago on 05/13/18. At that time, she was seen by Dr. Mejias. She was admitted for acute onset of right-sided arm and leg tingling. She has a history of atrial fibrillation and is on warfarin at home, but she had come off of the warfarin in order to get left wrist surgery for a ganglion cyst. After the surgery, her warfarin was restarted, but when she presented, her INR was 2. She notes what she describes as tingling of the right arm and leg and was concerned that this could be TIA versus CVA. Because her INR was subtherapeutic , she was initially started on Lovenox. She had workup done including a transthoracic echocardiogram with an ejection fraction of 60% to 65%. No PFO noted. She had an MRI done, which showed some atrophy, but no restricted diffusion. She also had a carotid ultrasound done, which showed mild bilateral plaque. No evidence of hemodynamically significant stenosis. During her hospitalization, her symptoms did improve, although she states when she left she was still having the tingling in the arm and the leg, which slowly improved. She was discharged home on her normal medications as well as the atorvastatin and Lovenox until she was therapeutic. It was reported during her hospitalization that she never had any weakness. She has been in her normal state of health. Apparently, the tingling resolved, but she had another episode this last Tuesday. It started in the morning and lasted 2 to 3 hours and subsequently resolved. It involved the right arm and leg again. This morning at around 9:30, she developed numbness and tingling of the right arm and leg, similar in nature to her prior presentation. She states that she ran out of her metoprolol and did not take it. At another point, she also notes that she got her simvastatin confused with metoprolol. In any event, when she came into the ER, her blood pressure was 189/98. She also had a mild bump in her troponins. Based on that, she was being admitted for hypertensive urgency. I was consulted for evaluation of her right arm and leg tingling. She states that the tingling involves the entire arm and the entire leg. She denies any leg pain. She denies any focal weakness on the right side. She denies any left -sided symptoms at all. She denies any problems walking or trips or falls. No head trauma. She has no balance issues. She denies ringing in her ears. She complains of a mild, dull frontal headache. No vision changes or vision loss. No speech difficulties. Otherwise, she has been in her usual state of health. Currently, she notes continuation of the tingling in the right arm and leg. She denies any numbness. PAST MEDICAL HISTORY: As noted above. PAST SURGICAL HISTORY: Includes ganglion cyst removal on the left wrist, tonsillectomy, hysterectomy, vein stripping, throat surgery in the past, cataract surgery. HOME MEDICATIONS: Include warfarin 4 mg on Tuesday, Tuesday, , and Tuesday and 7.5 mg on Tuesday, Tuesday, and Tuesday. She also takes PreserVision AREDS, vitamin, atorvastatin 40 mg a day, hydralazine 25 mg p.o. t.i.d., metoprolol 50 mg p.o. b.i.d., levothyroxine 50 mcg p.o. q.a.m., and digoxin 0.25 mg p.o. q.a.m. ALLERGIES: To NSAIDS, ASPIRIN, IODINATED CONTRAST DYE. FAMILY HISTORY: Significant for coronary artery disease. SOCIAL HISTORY: No tobacco, drug use, or alcohol use. and daughter are at the bedside with her. REVIEW OF SYSTEMS: Her review of systems in 14 organ systems is noted above; otherwise, negative. PHYSICAL EXAM: Vital Signs: Temperature of 99, pulse of 73, respiratory rate of 17, O2 saturation of 96%, blood pressure 189/98. In general, she is a well- nourished, well-developed female, in no acute distress. She is pleasant, lying in a hospital gurney, answers all questions appropriately. She is well dressed and well groomed. HEENT: She is normocephalic, atraumatic. Sclerae are anicteric. Mucous membranes are moist. Oropharynx is clear. Nares are patent. Neck is supple. No thyromegaly. No carotid bruits. No meningismus. Chest: Clear to auscultation bilaterally. Cardiovascular is irregularly irregular. No murmurs. Abdomen is nontender and nondistended. Extremities: No clubbing, cyanosis, or edema. Her skin is warm and dry. On neurologic exam, she is awake , alert, and oriented x3. Her speech is fluent. There is no dysarthria. Repetition is intact. Recall of recent and remote events is intact. Vocabulary is intact. Her mood is concerned. Affect is mood congruent. Cranial nerves II through XII: Pupils are equally round and reactive to light and accommodation. Extraocular muscles are intact. No diplopia, nystagmus, or ptosis. Visual schroeder are full to confrontation. Face is symmetric. Facial sensation is intact to light touch. Hearing is intact bilaterally. Palate raises symmetrically. Tongue is midline. Sternocleidomastoid and trapezius are 5/5. Motor Exam: She is 5/5 throughout. Tone and bulk are both normal. She has no drift in the upper or lower extremities. Sensation is intact to light touch and pinprick in the upper and lower extremities. She has no extinguishing with double simultaneous stimulation. She does note some tingling in the right arm and leg that is circumferential. It involves the entire right arm and right leg. She denies any facial tingling. DTRs are 1+ and symmetric in the upper and lower extremities bilaterally. Equivocal Babinski's. Naissv-rm-ixit, rapid alternating movements are intact with no tremors, no past- pointing. Heel -to-torres is intact. Gait: She is able to walk without difficulty. No balance issues. DIAGNOSTIC DATA: She did have a brain CT scan done today, which showed chronic ischemic white matter change. No intracranial mass or hemorrhages noted. Chest x-ray: Stigmata of obstructive lung disease. No acute pulmonary or cardiac process evident. ASSESSMENT AND PLAN: Ms. Brian is an 82-year-old female with a history of high blood pressure, hypothyroidism, prior hospital admission back in April for right- sided tingling. She had a workup that was essentially normal. She had similar symptoms this last Tuesday lasting for a few hours and this morning, she came into the hospital with the same symptoms of right arm and leg tingling. She denies any numbness, no focal weakness, no other neurologic symptoms. She ran out of her metoprolol and her blood pressure on admission was elevated and she had a mild increase in her troponins. In addition, she is subtherapeutic on her INR. Please note that her INR is 1.[address] of the head shows no acute changes. She has had a stroke workup a month ago that was negative. At this point, my suspicion that this is a TIA or stroke is extremely low given the fact that it has now happened 3 times in the exact same distribution. I suspect that she is suffering from some hypertensive urgency. She does have risk factors including atrial fibrillation, hypertension, hyperlipidemia and we will continue to control secondary risk factors. Also, she is subtherapeutic on her INR. I will speak to the hospitalist about bridging with Lovenox, as was done before. I would strive for tight control of her blood pressure at this point. She is to be monitored in the hospital overnight. We will repeat an MRI of her brain to make sure there is no evidence of any restricted diffusion that would suggest a new stroke. I do not think we need to do any additional workup other than that. I suspect at this point that we are dealing with hypertensive urgency. I will continue to follow her as an inpatient and make further recommendation as necessary. Thank you for the opportunity to participate in the care of this interesting patient. [id number]/[facility] #: [id number] DAY[place]
[2018-06-14] MEDS: Metoprolol Succinate XL TAB* 50 MG PO SCH (20:42)
[2018-06-14] MEDS: hydrALAZINE TAB* 25 MG PO SCH (20:42)
[2018-06-14] MEDS: Multivitamins/Mins (NF) AREDS2 1 CAP CAP PO SCH (20:44)
[2018-06-14] MEDS ORDERED: Atorvastatin* 40 MG TAB PO SCH (21:00)
[2018-06-14] MEDS ORDERED: Melatonin 3 MG TAB PO SCH (21:00)
[2018-06-14] MEDS ORDERED: Melatonin (NF) ** ENTER STRENGTH IN LABEL DIRECTIONS PO SCH (21:00)
[2018-06-15] MEDS ORDERED: Levothyroxine TAB* 50 MCG TAB PO SCH (06:00)
[2018-06-15 07:13] LABS: Hematocrit 44 % (33-41); Hemoglobin 14.6 g/dL (12.0-16.0); Mean Corpuscular HGB Conc 34 g/dL (31-36); Mean Corpuscular Hemoglobin 31 pg (27-31); Mean Corpuscular Volume 93 fL (80-97); Mean Platelet Volume 7.9 fL (7.4-10.4); Platelet Count 236 10^3/uL (150-450); Red Blood Count 4.69 10^6 /uL (3.70-4.87); Red Cell Distribution Width 14 % (10.5-15); White Blood Count 9.7 10^3/uL (3.5-10.8)
[2018-06-15 07:33] LABS: Albumin 4.3 g/dL (3.2-5.2); Albumin/Globulin Ratio 1.5 (1-3); Calcium 9.4 mg/dL (8.6-10.3); EGFR African American 86.4 (>60); EGFR Non-African American 71.4 (>60); Globulin 2.9 g/dL (2-4); Magnesium 2.3 mg/dL (1.9-2.7); Phosphorus 3.3 mg/dL (2.5-5.0); Total Bilirubin 1.9 mg/dL (0.2-1.0); Total Protein 7.2 g/dL (6.4-8.9)
[2018-06-15 08:09] VITALS: BP 123/46
[2018-06-15] MEDS: Metoprolol Succinate XL TAB* 50 MG PO SCH (08:21)
[2018-06-15] MEDS: Multivitamins/Mins (NF) AREDS2 1 CAP CAP PO SCH (08:21)
[2018-06-15] MEDS: hydrALAZINE TAB* 25 MG PO SCH (08:21)
--- NOTE | 2018-06-15 08:35 | PN ---
Subjective Date of Service: 06/15/18 Length of Stay: 1 Days Interval History: Doing well. Only mild tingling of the right arm. Right leg tingling resolved. No further issues overnight. Stable. No focal weakness, headaches, vision changes, speech changes, word finding difficulties, gait disturbance, dizziness. MRI: No evidence of acute or subacute stroke, film reviewed Objective Active Medications: Acetaminophen (Tylenol Tab*) 650 mg PO Q6H PRN PRN Reason: pain/fever Atorvastatin Calcium (Lipitor*) 40 mg PO 2100 [facility] Last Admin: 06/14/18 20:42 Dose: 40 mg Digoxin (Lanoxin Tab*) 0.25 mg PO QAM [facility] Last Admin: 06/15/18 08:21 Dose: 0.25 mg Hydralazine HCl (Apresoline Tab*) 25 mg PO TID [facility] Last Admin: 06/15/18 08:21 Dose: 25 mg Hydralazine HCl (Apresoline Iv*) 10 mg IV SLOW PU Q6H PRN PRN Reason: Hypertension Levothyroxine Sodium (Synthroid Tab*) 50 mcg PO QAM@0600 [facility] Last Admin: 06/15/18 05:05 Dose: 50 mcg Melatonin (Melatonin) 3 mg PO BEDTIME [facility] Last Admin: 06/14/18 20:42 Dose: 3 mg Metoprolol Succinate (Toprol Xl Tab*) 50 mg PO BID [facility] Last Admin: 06/15/18 08:21 Dose: 50 mg Multivitamins/Minerals (Preservision Areds 2) 1 cap PO BID [facility] Last Admin: 06/15/18 08:21 Dose: Not Given Warfarin Sodium (Coumadin Tab(*)) 4 mg PO SuTuThSa@1700 [facility]; Protocol Warfarin Sodium (Coumadin Tab(*)) 7.5 mg PO MoWeFr@1700 [facility]; Protocol Last Admin: 06/14/18 18:05 Dose: 7.5 mg Vital Signs 06/14/18 06/14/18 06/14/18 12:44 16:12 16:13 Temperature 99.0 F Pulse Rate 73 69 84 Respiratory 17 22 Rate Blood Pressure 189/98 172/83 (mmHg) O2 Sat by Pulse 96 96 97 Oximetry 06/14/18 06/14/18 06/14/18 16:14 16:34 17:24 Temperature 97.7 F 98.1 F Pulse Rate 70 104 Respiratory 16 14 16 Rate Blood Pressure 152/60 172/83 (mmHg) O2 Sat by Pulse 96 99 Oximetry 06/14/18 06/14/18 06/15/18 19:20 23:24 03:52 Temperature 98.2 F 97.9 F 98.4 F Pulse Rate 82 67 67 Respiratory 18 20 20 Rate Blood Pressure 138/46 125/49 138/54 (mmHg) O2 Sat by Pulse 96 92 96 Oximetry 06/15/18 06/15/18 08:08 08:21 Temperature 97.2 F Pulse Rate 67 67 Respiratory 16 Rate Blood Pressure 123/46 (mmHg) O2 Sat by Pulse 97 Oximetry Intake and Output Last 24 Hours 06/13/18 06/14/18 06/15/18 06/16/18 06:59 06:59 06:59 06:59 Intake Total 1040 Balance 1040 Weight 185 lb 3.2 oz Intake: Oral 1040 Other: Estimated Void Medium # Voids 1 Oxygen Devices in Use Now: None Neurology Exam: General: Well nourished, well developed, and in no acute distress HEENT: Normocephalic/atraumatic, sclera anicteric, mucous membranes moist Neck: Supple Chest: Clear to auscultation bilaterally Cardiovascular: Irreg irreg, 3/6 TARYN Abdomen: Soft, non-tender/non-distended Extremities: No clubbing, cyanosis, or edema Neurological Findings: Awake, alert, and oriented to person, place, and time. Speech: fluent without dysarthria, repetition intact Cranial Nerve: PERRL, EOM intact, VFF, no nystagmus, face symmetric bilaterally , facial sensation intact, hearing intact to finger rub bilaterally, palate elevates symmetrically, tongue midline Motor: 5/5 throughout, proximal and distal extremities x4 tone/bulk normal, no drift Sensation: intact to LT/PP bilaterally upper and lower extremities with some tingling in the right arm, non-dermatomal Deep Tendon Reflex: 1+ symmetric in the upper/lower extremities Finger to nose, rapid alternating movements intact without tremor, no dysdiadochokinesia Result Diagrams: 06/15/18 06:55 06/15/18 06:55 Assessment/Plan 82 year old with a history of HTN and A.fib, non-compliant with medications, subtherapeutic, admitted with HTN urgency, with right arm and leg tingling, similar presentation 1 month ago with negative stroke workup. Tingling: she has now had three discreet episodes of the exact same presentation, at least one of which (this presentation) associated with severely elevated BP meds. Suspect HTN urgency. Persistence of symptoms is atypical and this could be related to an underlying spinal etiology. --I have stressed the need for compliance with both her BP meds and blood thinners. --Very low suspicion for TIA or stroke given repeated presentation. I would expect at this point, we would see something on MRI. --Subtherapeutic on Coumdin but due to low suspicion for stroke, I do not think she needs to be bridged, stressed compliance --return to ER with any new Stroke symptoms. 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 --Echo pending --Please schedule follow up as o/p in my clinic and we can do an outpatient workup including possible MRI neck and EMG/NCS. I do not think this needs to be done acutely. I will sign off for now. Assuming Echo is ok, I do think she can go home with the understanding to come back if she develops new symptoms. I remain available for any new issues or concerns
[2018-06-15 09:00] LABS: INR 1.47 (0.77-1.02)
[2018-06-15] MEDS ORDERED: Digoxin TAB* 0.25 MG PO SCH (09:00)
--- NOTE | 2018-06-15 11:22 | ECHO ---
Patient: BRYON FERNANDEZ [facility] Rec#: [id number] : 1935 Date: 06/15/2018 Age: 82y Height: 165 cm / 65.0 in Weight: 82 kg / 180.7 lbs Sex: F BSA: 1.89 Room#: 432 Admit Date#: 06/14/2018 Type: Inpatient Referring: Edi Spain Reading: Keagan Latif DO [employer] Sales Representative: Brittany Mckeon RDCS Transthoracic Echocardiogram Indication: Elevated troponins, HTN BP: 138/54 HR: 64 Rhythm: NSR with PACs Findings History: HTN, COPD, A-fib, TIA. Technical Comments: The study quality is fair. Completed at 1010. Left Ventricle: The left ventricular chamber size is normal. Mild concentric left ventricular hypertrophy is observed. Global left ventricular wall motion and contractility are within normal limits. There is normal left ventricular systolic function. The estimated ejection fraction is 55-60%. Abnormal left ventricular diastolic function is observed. Left Atrium: The left atrium is mildly dilated. Right Ventricle: The right ventricular chamber size and systolic function are within normal limits. Right Atrium: The right atrium is mildly dilated. Aortic Valve: The aortic valve is trileaflet. Moderate aortic leaflet calcification is visualized. Systolic excursion of the aortic valve cusps is reduced. There is mild to moderate aortic regurgitation. There is moderate aortic stenosis. The mean gradient of the aortic valve is 19 mmHg. The peak instantaneous gradient of the aortic valve is 38 mmHg. The aortic valve area, by VTI's, is calculated at 1.1 cm2. The measured aortic regurgitation pressure half-time is 391 msec. Mitral Valve: Moderate mitral annular calcification present. The mitral valve leaflets are mildly thickened. There is mild mitral regurgitation. There is no evidence of mitral stenosis. Tricuspid Valve: The tricuspid valve leaflets are normal. There is mild tricuspid regurgitation. No pulmonary hypertension is noted. There is no tricuspid stenosis. Pulmonic Valve: The pulmonic valve appears normal. There is a trace pulmonic regurgitation. There is no pulmonic stenosis. Pericardium: There is no significant pericardial effusion. Aorta: There is no dilatation of the ascending aorta. There is no dilatation of the aortic arch. The aortic root is normal in size. Pulmonary Artery: The main pulmonary artery is not well visualized. Venous: The inferior vena cava appears normal in size. There is a greater than 50% respiratory change in the inferior vena cava dimension. Conclusions The left ventricular chamber size is normal. Mild concentric left ventricular hypertrophy is observed. Global left ventricular wall motion and contractility are within normal limits. There is normal left ventricular systolic function. The estimated ejection fraction is 55-60%. The left atrium is mildly dilated. The right ventricular chamber size and systolic function are within normal limits. There is mild to moderate aortic regurgitation. There is moderate aortic stenosis. Compared to prior study from 05/14/2018, the estimated PASP is now normal (was 49 mmHg previously) Measurements Name Value Normal Range RVIDd (AP) 2D 3.4 cm (0.9 - 2.6) RVDdMajor (2D) 4.5 cm (2.2 - 4.4) RAd ISD 4CH 5.6 cm (3.4 - 4.9) RA (A4C)W 4.2 cm (2.9 - 4.6) IVSd (2D) 1.1 cm (0.6 - 1) LVPWd (2D) 1.1 cm (0.6 - 1) LVIDd (2D) 4.3 cm (3.6 - 5.4) LVIDs (2D) 2.6 cm - LV FS (2D) 39 % (25 - 45) Aortic Annulus 1.9 cm (1.4 - 2.6) Ao root diameter (2D) 2.9 cm (2.1 - 3.5) Ascending Ao 2.9 cm (2.1 - 3.4) Aortic arch 2.3 cm (1.8 - 3.4) LA dimension (AP) 2D 4 cm (2.3 - 3.8) LAd ISD 4CH 5.8 cm (2.9 - 5.3) LA ISD 4CH W 4.6 cm (2.5 - 4.5) Name Value Normal Range LA ESV BP (A/L) index 37 ml/m2 - Name Value Normal Range MV E-wave Vmax 1.2 m/sec - MV deceleration time 289 msec - MV A-wave Vmax 1.17 m/sec - MV E:A ratio 1 ratio - LV septal e' Vmax 0.06 m/sec - LV lateral e' Vmax 0.05 m/sec - LV E:e' septal ratio 20 ratio - LV E:e' lateral ratio 24 ratio - Name Value Normal Range AV Vmax 3.1 m/sec - AV VTI 75.2 cm - AV peak gradient 38 mmHg - AV mean gradient 19 mmHg - LVOT diameter 2 cm - LVOT Vmax 1.1 m/sec - LVOT VTI 27 cm - LVOT peak gradient 5 mmHg - LVOT mean gradient 2 mmHg - DOI (VTI) 0.36 ratio - ALIE (continuity Vmax) 1.1 cm2 - ALIE (continuity VTI) 1.1 cm2 - AR PHT 391 msec - PARK Vmax 1.3 m/sec - Name Value Normal Range MV Vmax 1.3 m/sec - MV VTI 47 cm - MV peak gradient 7 mmHg - MV mean gradient 4 mmHg - MV PHT 108 msec - MVA (PHT) 2 cm2 - Name Value Normal Range TR Vmax 2.8 m/sec - TR peak gradient 31 mmHg - RAP 3 mmHg - RVSP 34 mmHg - IVC diameter 2 cm - Name Value Normal Range PV Vmax 1.2 m/sec - PV peak gradient 6 mmHg -
[2018-06-15] MEDS ORDERED: Warfarin TAB(*) 4 MG PO SCH (17:00)
--- NOTE | 2018-06-15 21:01 | DS ---
CONTINUATION ADDENDUM NOW INCLUDED ON THIS REPORT CC: Dr. Maikol Cohen; Dr. River Tolbert; Dr. Cat Berg.* DISCHARGE SUMMARY: DATE OF ADMISSION: DATE OF DISCHARGE: 06/15/18 DISCHARGE CONDITION: Fair. DISPOSITION: Home. DISCHARGE DIAGNOSES: Are as follows: 1. Hypertensive urgency, resolved. 2. Hypothyroidism, history of. 3. Atrial fibrillation, history of. CONTINUATION ADDENDUM: DISCHARGE MEDICATIONS: Are as follows: 1. Atorvastatin 40 mg p.o. daily. 2. Digoxin 0.25 mg p.o. q.a.m. 3. Hydralazine 25 mg p.o. t.i.d. 4. Levothyroxine 50 mcg p.o. q.a.m. 5. Metoprolol succinate 50 mg p.o. b.i.d. 6. PreserVision AREDS 2 softgels 1 each p.o. b.i.d. 7. Warfarin 7.5 mg p.o. Tuesday, Tuesday, and Tuesday and 4 mg p.o. Tuesday, Tuesday, , and Tuesday. 8. Melatonin 5 mg p.o. q.h.s. HISTORY OF PRESENT ILLNESS/HOSPITAL COURSE: The patient is an 82-year-old lady with history of hypertension, atrial fibrillation, on Coumadin, and recent diagnosis of TIA where she was just recently discharged on 05/15/18 where an MRI was found to be otherwise devoid of any acute issues. She mentions that she thought that the metoprolol was the same thing as her statins and has not taken her metoprolol since her discharge. She mentions that she once again has had some right-sided tingling that she complained of in previous admission where she was diagnosed with TIA. She mentioned that she called her family physician, Dr. Storm's office who instructed her to obtain her vitals and was found that her blood pressure was in the 190 systolic and heart rate of 120s. In the ED, the initial impression and subsequent data confirms that she has had hypertensive urgency which she was admitted for and when her blood pressure was better controlled when she was placed back on her Toprol, the tingling sensation she complained of in her right side has subsided if not completely disappeared. In addition, her mildly elevated troponins on admission on subsequent draws were found to have normalized and a subsequent 2D echo did not reveal any wall motion abnormalities and she also has a preserved EF of 55% to 60%. She does have an incidental finding of mild-to- moderate aortic regurgitation and diastolic dysfunction. She does have evidence of concentric left ventricular hypertrophy, again indicative of her uncontrolled hypertension. She had been made aware of the 2D echo results prior to her discharge. The patient was advised to follow up and/or call her PCP within 3 days post discharge. She was advised to please look at her medications and study done and to know what they are for to prevent confusion as to what they do. She was advised to contact her pharmacist for further assistance when she picks up her prescriptions/medications. She was advised to make sure to count and/or estimate the amount of sodium she takes in her food and drinks and was advised not to ingest more than 2 g of sodium per day. Once again, she had been informed of her 2D echo results mentioned above. She was advised that if her symptoms resume or develop new ones or feel unwell for any reason to call her PCP first; and, if her PCP cannot entertain her due to scheduling issues alone, she was advised to call [facility]. Dr. Tolbert has also evaluated the patient on this admission given that she was followed up by Neurology since last admission who agrees with the above assessment and plan and mentions that the patient should follow up within 1 month post discharge. She was advised to call my office regarding any questions, concerns or further clarifications regarding her discharge plans and her prescriptions and to take her medications as prescribed. REVIEW OF SYSTEMS: The patient denied any headaches, dizziness, fevers, chills , nausea, vomiting, chest pain, shortness of breath, increased cough and sputum production, abdominal pain, diarrhea, constipation, pain and/or increased frequency on urination, mentions that her right-sided tingling sensation is almost gone. Other than this, no myalgias or arthralgias reported. No throat pain or new skin lesions. The rest of the 14-point review of systems are otherwise unremarkable. PHYSICAL EXAMINATION: Shows the most recent vitals signs of records with blood pressure of 123/46, temperature of 97.2 degrees Fahrenheit, 67 beats per minute of heart rate, 16 per minute of respiratory rate, and saturating at 97% on room air. General Appearance: The patient is awake, alert, and oriented x3, not in acute distress. HEENT: Normocephalic, atraumatic. PERRLA. Extraocular muscles intact. Negative for icterus. Moist oral mucosa. Negative throat erythema. Neck is soft, supple with no cervical lymphadenopathy. No JVD. Heart: S1, S2 within normal limits. Regular rate and rhythm. No murmurs, rubs , or gallops. Chest: Clear to auscultation bilaterally. Good air entry. No wheezes, rales, or rhonchi. Abdomen is soft, nondistended, nontender. Normoactive bowel sounds x4 quadrants. Extremities: No cyanosis, clubbing, or edema. Psychiatric: No active psychosis, depression, suicidal or homicidal ideations. Skin is warm to touch. TIME SPENT: The total time spent evaluating the patient, reviewing pertinent data and appropriate documentation is 60 minutes. [id number]/[facility] #: [id number] - [id number]/[facility] #: [id number] [facility]
--- NOTE | 2018-06-15 21:59 | DS ---
CC: Dr. Maikol Cohen; Dr. River Tolbert; Dr. Cat Berg. DISCHARGE SUMMARY CONTINUATION: DISCHARGE MEDICATIONS: Are as follows: 1. Atorvastatin 40 mg p.o. daily. 2. Digoxin 0.25 mg p.o. q.a.m. 3. Hydralazine 25 mg p.o. t.i.d. 4. Levothyroxine 50 mcg p.o. q.a.m. 5. Metoprolol succinate 50 mg p.o. b.i.d. 6. PreserVision AREDS 2 softgels 1 each p.o. b.i.d. 7. Warfarin 7.5 mg p.o. Tuesday, Tuesday, and Tuesday and 4 mg p.o. Tuesday, Tuesday, , and Tuesday. 8. Melatonin 5 mg p.o. q.h.s. HISTORY OF PRESENT ILLNESS/HOSPITAL COURSE: The patient is an 82-year-old lady with history of hypertension, atrial fibrillation, on Coumadin, and recent diagnosis of TIA where she was just recently discharged on 05/15/18 where an MRI was found to be otherwise devoid of any acute issues. She mentions that she thought that the metoprolol was the same thing as her statins and has not taken her metoprolol since her discharge. She mentions that she once again has had some right-sided tingling that she complained of in previous admission where she was diagnosed with TIA. She mentioned that she called her family physician, Dr. Storm's office who instructed her to obtain her vitals and was found that her blood pressure was in the 190 systolic and heart rate of 120s. In the ED, the initial impression and subsequent data confirms that she has had hypertensive urgency which she was admitted for and when her blood pressure was better controlled when she was placed back on her Toprol, the tingling sensation she complained of in her right side has subsided if not completely disappeared. In addition, her mildly elevated troponins on admission on subsequent draws were found to have normalized and a subsequent 2D echo did not reveal any wall motion abnormalities and she also has a preserved EF of 55% to 60%. She does have an incidental finding of mild-to- moderate aortic regurgitation and diastolic dysfunction. She does have evidence of concentric left ventricular hypertrophy, again indicative of her uncontrolled hypertension. She had been made aware of the 2D echo results prior to her discharge. The patient was advised to follow up and/or call her PCP within 3 days post discharge. She was advised to please look at her medications and study done and to know what they are for to prevent confusion as to what they do. She was advised to contact her pharmacist for further assistance when she picks up her prescriptions/medications. She was advised to make sure to count and/or estimate the amount of sodium she takes in her food and drinks and was advised not to ingest more than 2 g of sodium per day. Once again, she had been informed of her 2D echo results mentioned above. She was advised that if her symptoms resume or develop new ones or feel unwell for any reason to call her PCP first and if her PCP cannot entertain her due to scheduling issues alone, she was advised to call [facility]. Dr. Tolbert has also evaluated the patient on this admission given that she was followed up by Neurology since last admission who agrees with the above assessment and plan and mentions that the patient should follow up within 1 month post discharge. She was advised to call my office regarding any questions, concerns or further clarifications regarding her discharge plans and her prescriptions and to take her medications as prescribed. REVIEW OF SYSTEMS: The patient denied any headaches, dizziness, fevers, chills , nausea, vomiting, chest pain, shortness of breath, increased cough and sputum production, abdominal pain, diarrhea, constipation, pain and/or increased frequency on urination, mentions that her right-sided tingling sensation is almost gone. Other than this, no myalgias or arthralgias reported. No throat pain or new skin lesions. The rest of the 14-point review of systems are otherwise unremarkable. PHYSICAL EXAMINATION: Shows the most recent vitals signs of records with blood pressure of 123/46, temperature of 97.2 degrees Fahrenheit, 67 beats per minute of heart rate, 16 per minute of respiratory rate, and saturating at 97% room air. General Appearance: The patient is awake, alert, and oriented x3, not in acute distress. HEENT: Normocephalic, atraumatic. PERRLA. Extraocular muscles intact. Negative for icterus. Moist oral mucosa. Negative throat erythema. Neck is soft, supple with no cervical lymphadenopathy. No JVD. Heart: S1, S2 within normal limits. Regular rate and rhythm. No murmurs, rubs , or gallops. Chest: Clear to auscultation bilaterally. Good air entry. No wheezes, rales, or rhonchi. Abdomen is soft, nondistended, nontender. Normoactive bowel sounds x4 quadrants. Extremities: No cyanosis, clubbing, or edema. Psychiatric: No active psychosis, depression, suicidal or homicidal ideations. Skin is warm to touch. TIME SPENT: The total time spent evaluating the patient, reviewing pertinent data and appropriate documentation is 60 minutes. [id number]/[facility] #: [id number] [place]
== END 2018-06-15 13:30 ==
LOC: ED 12:41 → MEDTELE 15:24
PROVIDERS: ADMIT Student in an Organized Health Care Education/Training Program; ATTEND Student in an Organized Health Care Education/Training Program
DX: I10 Essential (primary) hypertension (principal); E03.9 Hypothyroidism, unspecified; I48.91 Unspecified atrial fibrillation; Z79.01 Long term (current) use of anticoagulants; Z86.73 Personal history of transient ischemic attack (TIA), and cerebral infarction without residual deficits; J38.3 Other diseases of vocal cords; Z98.890 Other specified postprocedural states; Z90.710 Acquired absence of both cervix and uterus; R20.2 Paresthesia of skin; Z91.14 Patient's other noncompliance with medication regimen; Z88.6 Allergy status to analgesic agent; K21.9 Gastro-esophageal reflux disease without esophagitis
CPT/HCPCS: 36415; 70450; 70551; 71045; 80053; 81003; 83735; 84100; 84484; 85025; 85027; 85610; 85730; 93005; 93306; 96374; 96376; 99284; A9270-GY; G0378; J2060